=== PATIENT | male | born 1955 | race Caucasian/White ===

== ENCOUNTER 2021-11-30 15:26 | Inpatient (IN) ==
--- NOTE | 2021-11-30 15:37 | ED Triage Note ---
Date of Service November 30, 2021 History of Present Illness This patient was briefly evaluated while in triage. An abbreviated physical exam was performed. This patient is a 66-year-old Male with past medical history of hyperlipidemia who presents to the ED with family for mental health evaluation. Per daughter, he has been having worsening paranoid behavior, history of this for years, but has never been evaluated or diagnosed. Hx of drug use in the past, no longer using, but does drink alcohol heavily. No hx of alcohol withdrawal or seizures. Physical Exam CONSTITUTIONAL: No acute distress. Disheveled appearing, poor hygiene. RESPIRATORY: Clear to auscultation bilaterally. Equal expansion bilaterally. CARDIOVASCULAR: Regular rate and rhythm with no murmurs, rubs or gallops. Normal peripheral perfusion. No peripheral edema. NEUROLOGIC: Alert and oriented X 4 with normal affect. Normal speech. Normal gait observed. Initial orders for labs and / or imaging were placed and patient was placed in the waiting area until a bed is available. Please see further documentation for the full ED course.
--- NOTE | 2021-11-30 16:03 | CT Scan Report ---
CT head/brain wo con CLINICAL HISTORY: Paranoid behavior, confusion COMPARISON STUDY: No previous studies for comparison. CT DOSE: 1228.53 mGy.cm TECHNIQUE: Standard CT of the Brain was performed without IV contrast. A dose lowering technique was utilized adhering to the principles of ALARA. FINDINGS: Extraaxial space: There is no evidence for subdural hematoma. There are no extra-axial fluid collecti ons. Ventricles and cisterns: The ventricles are mildly dilated bilaterally. There is no evidence for midl ine shift or mass effect. Parenchyma: There is no subarachnoid or intraparenchymal hemorrhage. There is no evidence for an acut e infarct or cerebral edema. There is mild cerebral cortical atrophy and decreased attenuation in the periventricular white matter representing remote small vessel disease. There are no gross mass lesio ns. Osseous structures: There is no evidence for an acute fracture. The visualized paranasal sinuses are clear. The mastoid air cells are clear bilaterally. Soft tissues: There is no evidence for focal soft tissue swelling. IMPRESSION: 1. No acute intracerebral pathology. 2. Mild cerebral cortical atrophy and remote small vessel ACT 112: Negative or not required by law. Electronically signed by: Beltran Lawson M.D. 11/30/2021 4:02 PM
--- NOTE | 2021-11-30 17:00 | Emergency Department Note ---
Impression & Plan Alcohol abuse, Paranoia, Hyponatremia, Transaminitis ED Provider Note NAME: CYDNEY AYALA AGE: 66 SEX: M : 1955 ARRIVES VIA: Walk-In INFORMANT: Patient, ED PROVIDER(S): Saul Tucker MD Chief Complaint: Paranoia HPI: Patient presents due to concern for paranoia which family has noted and the patient states that he thinks that his family wants to harm him. The patient does have a known history of chronic alcohol use. Patient denies any active SI or HI. Does not currently take any medications and has no known medical problems. The patient last drank 2 days prior. Patient does smoke but denies any alcohol use. Patient's sleep and appetite has been okay. Patient denies any auditory visual hallucinations. ROS: See HPI for pertinent positives and negatives. A total of 10 systems were r eviewed and otherwise negative. Past medical history: See below Surgical history: See below Social history: See below Physical Exam: GENERAL: NAD, wearing a mask, non-toxic. EYE EXAM: Normal conjunctiva. PERRL, no anisocoria and EOM's grossly intact w/o pain. NECK: Supple, no nuchal rigidity, no adenopathy, non-tender. No signs of meningismus. FROM of the neck with good chin to chest and neck extension. No stridor. LUNGS: Clear to auscultation. Normal chest wall mechanics. HEART: NSR, no MRG. ABDOMEN: Abdomen soft, non-tender, normo-active bowel sounds, no masses, no rebound or guarding. BACK: No CVA TTP. SKIN: No rashes and no bruising. UPPER EXTREMITIES: Upper extremities are grossly normal. LOWER EXTREMITIES: Grossly normal, no edema. NEURO EXAM: A&O x3, cranial nerves II-XII grossly intact, normal speech, moves all 4 extremities. Psych: Paranoia, denies SI, HI, or AVH. Differential diagnoses: Mood disorder, infection, hypoglycemia, electrolyte abnormalities, cardiac sources, intracerebral event, toxicologic, trauma, neurologic, as well as other pathologies. Course: Patient was seen and evaluated the bedside. Full history physical exam was performed. Imaging Studies: See Below EKG interpreted by me Sinus tachycardia, rate of 103, borderline QRS, right bundle branch block pattern. MDM: Patient was seen due to concern for mental wellness. Blood work is obtained. Patient has normal white count H&H and platelet count. The patient's kidney function is unremarkable with mild hyponatremia and transaminitis. Transaminitis likely secondary to the patient's chronic alcohol use as this is the likely hyponatremia. Urine and serum awesome's as well as urine electr olytes were ordered. I did speak the on-call hospitalist given the patient's hyponatremia and was recommended for medical admission with psychiatric consultation. I did speak with [facility] and the patient was admitted to the medicine service by Dr. Pruitt. Patient's COVID alcohol UDS and tox cream negative Past Med/Surg History Medical History Alcohol use Surgical History No pertinent past surgical history Social History (Updated 11/30/21 @ 22:26 by Salu Tucker MD) Smoking Status: Current every day smoker Tobacco Type: Cigarettes Hx Alcohol Use: Yes Hx Substance Use: No Preferred Language: Georgian Feels Safe at Home: Yes Allergies Allergies Allergy/AdvReac Type Severity Reaction Status Date / Time No Known Allergies Allergy Verified 11/30/21 18:20 Home Meds Home Medications Medication Instructions Recorded Confirmed No Known Home Medications 11/30/21 11/30/21 Results & Data (ED) Vital Signs Vital Signs - 24 hr 11/30/21 15:27 11/30/21 18:03 Temperature 36.6 C Temperature Source Temporal Artery Scan Pulse Rate 107 H Pulse Rate [Bilateral Finger] 109 H Respiratory Rate 18 20 Respiratory Effort / Characteristics Non-Labored Spontaneous Respiratory Depth Normal Blood Pressure 165/99 H Blood Pressure [Right Arm] 183/114 H Blood Pressure Mean 121 Blood Pressure Mean [Right Arm] 137 Pulse Oximetry 94 99 Oxygen Delivery Method Room Air Sepsis Recent Fever Within 48 Hours No Sepsis New/Unexplained Change in Mental Status No Sepsis Action Taken by Nursing No Action Required Home Medications Current Medication List: was personally reviewed by me Laboratory Data Attestation: I reviewed the patient's lab results. Result diagrams: 11/30/21 16:55 11/30/21 16:55 Lab Results 11/30/21 11/30/21 11/30/21 Range/Units 16:55 16:55 16:55 WBC 7.52 (4.8-10.8) K/ul RBC 4.22 L (4.63-6.08) M/uL Hgb 14.4 (14.0-18.0) g/dl Hct 40.6 (40.1-51.0) % MCV 96.2 (80.0-100.0) fL MCH 34.1 H (25.0-34.0) pg MCHC 35.5 (32.0-36.0) g/dL RDW Std Deviation 41.0 (36.4-46.3) fL RDW Coeff of Arielle 11.9 (11.5-14.5) % Plt Count 228 (130-400) K/uL MPV 9.4 (9.4-12.4) fL Immature Gran % (Auto) 0.4 % Neut % (Auto) 66.4 % Lymph % (Auto) 21.0 % Ulster % (Auto) 11.2 % Eos % (Auto) 0.5 % Baso % (Auto) 0.5 % Neut # (Auto) 4.99 (1.4-6.5) K/uL Lymph # (Auto) 1.58 (1.2-3.4) K/uL Ulster # (Auto) 0.84 H (0.24-0.82) K/uL Eos # (Auto) 0.04 (0-0.50) K/uL Baso # (Auto) 0.04 (0-0.2) K/uL Immature Gran # (Auto) 0.03 H (0.00-0.02) K/uL Sodium 128 L (136-145) mmol/L Potassium 3.8 (3.5-5.1) mmol/L Chloride 91 L (98-107) mmol/L Carbon Dioxide 25 (21-32) mmol/L Anion Gap 12 H (3-11) BUN 8 (6-23) mg/dl Creatinine 1.09 (0.6-1.4) mg/dl Est Cr Clr Drug Dosing 58.5 ml/min Est GFR ( Amer) 81.0 ml/min Est GFR (Non-Af Amer) 69.9 ml/min BUN/Creatinine Ratio 7.3 L (10-20) Glucose 89 (70-99(Fasting)) mg/dl Osmolality (280-300) mOsm/kg Calcium 9.4 (8.5-10.1) mg/dl Total Bilirubin 1.5 H (0.2-1.0) mg/dl AST 84 H (13-39) U/L ALT 66 H (7-52) U/L Alkaline Phosphatase 76 (34-104) U/L Total Protein 8.2 (6.0-8.3) gm/dl Albumin 4.0 (3.4-5.0) gm/dl Globulin 4.2 H (2.5-4.0) gm/dl Albumin/Globulin Ratio 1.0 (0.9-2) TSH 1.511 (0.300-4.500) uIu/ml Urine Color Urine Appearance (Clear) Urine pH (4.5-7.5) Ur Specific [place] (1.000-1.030) Urine Protein (Negative) Urine Glucose (UA) (Negative) Urine Ketones (Negative) Urine Blood (Negative) Urine Nitrite (Negative) Urine Bilirubin (Negative) Urine Urobilinogen (Negative) Ur Leukocyte Esterase (Negative) Urine WBC (Auto) (0-5) /hpf Urine RBC (Auto) (0-4) /hpf U Hyaline Cast (Auto) (0-5) /lpf U Epithel Cells (Auto) (0-5) /lpf Urine Bacteria (Auto) (Negative) Urine Osmolality (500-800) mOsm/kg Urine Sodium mmol/L Urine Potassium mmol/L Urine Chloride mmol/L Salicylates (3.0-30) mg/dl Urine Opiates Screen (Neg) Ur Methadone, Qual (Neg) Acetaminophen (10-30) ug/ml Urine Barbiturates (Neg) Ur Phencyclidine (PCP) (Neg) U Amphetamin/Meth Scrn (Neg) MDMA (Ecstasy) Screen (Neg) U Benzodiazepines Scrn (Neg) Ur Cocaine Metabolite (Neg) U Marijuana (THC) Screen (Neg) Ethyl Alcohol mg/dL (<10.0) mg/dl SARS-CoV-2, RNA, NAAT (NEGATIVE) 11/30/21 11/30/21 11/30/21 Range/Units 16:55 16:55 16:55 WBC (4.8-10.8) K/ul RBC (4.63-6.08) M/uL Hgb (14.0-18.0) g/dl Hct (40.1-51.0) % MCV (80.0-100.0) fL MCH (25.0-34.0) pg MCHC (32.0-36.0) g/dL RDW Std Deviation (36.4-46.3) fL RDW Coeff of Arielle (11.5-14.5) % Plt Count (130-400) K/uL MPV (9.4-12.4) fL Immature Gran % (Auto) % Neut % (Auto) % Lymph % (Auto) % Ulster % (Auto) % Eos % (Auto) % Baso % (Auto) % Neut # (Auto) (1.4-6.5) K/uL Lymph # (Auto) (1.2-3.4) K/uL [place] # (Auto) (0.24-0.82) K/uL Eos # (Auto) (0-0.50) K/uL Baso # (Auto) (0-0.2) K/uL Immature Gran # (Auto) (0.00-0.02) K/uL Sodium (136-145) mmol/L Potassium (3.5-5.1) mmol/L Chloride (98-107) mmol/L Carbon Dioxide (21-32) mmol/L Anion Gap (3-11) BUN (6-23) mg/dl Creatinine (0.6-1.4) mg/dl Est Cr Clr Drug Dosing ml/min Est GFR ( Amer) ml/min Est GFR (Non-Af Amer) ml/min BUN/Creatinine Ratio (10-20) Glucose (70-99(Fasting)) mg/dl Osmolality (280-300) mOsm/kg Calcium (8.5-10.1) mg/dl Total Bilirubin (0.2-1.0) mg/dl AST (13-39) U/L ALT (7-52) U/L Alkaline Phosphatase (34-104) U/L Total Protein (6.0-8.3) gm/dl Albumin (3.4-5.0) gm/dl Globulin (2.5-4.0) gm/dl Albumin/Globulin Ratio (0.9-2) TSH (0.300-4.500) uIu/ml Urine Color Urine Appearance (Clear) Urine pH (4.5-7.5) Ur Specific [place] (1.000-1.030) Urine Protein (Negative) Urine Glucose (UA) (Negative) Urine Ketones (Negative) Urine Blood (Negative) Urine Nitrite (Negative) Urine Bilirubin (Negative) Urine Urobilinogen (Negative) Ur Leukocyte Esterase (Negative) Urine WBC (Auto) (0-5) /hpf Urine RBC (Auto) (0-4) /hpf U Hyaline Cast (Auto) (0-5) /lpf U Epithel Cells (Auto) (0-5) /lpf Urine Bacteria (Auto) (Negative) Urine Osmolality (500-800) mOsm/kg Urine Sodium mmol/L Urine Potassium mmol/L Urine Chloride mmol/L Salicylates < 3.0 L (3.0-30) mg/dl Urine Opiates Screen (Neg) Ur Methadone, Qual (Neg) Acetaminophen < 3 L (10-30) ug/ml Urine Barbiturates (Neg) Ur Phencyclidine (PCP) (Neg) U Amphetamin/Meth Scrn (Neg) MDMA (Ecstasy) Screen (Neg) U Benzodiazepines Scrn (Neg) Ur Cocaine Metabolite (Neg) U Marijuana (THC) Screen (Neg) Ethyl Alcohol mg/dL < 10.0 (<10.0) mg/dl SARS-CoV-2, RNA, NAAT NEGATIVE (NEGATIVE) 11/30/21 11/30/21 11/30/21 Range/Units 16:55 16:55 16:55 WBC (4.8-10.8) K/ul RBC (4.63-6.08) M/uL Hgb (14.0-18.0) g/dl Hct (40.1-51.0) % MCV (80.0-100.0) fL MCH (25.0-34.0) pg MCHC (32.0-36.0) g/dL RDW Std Deviation (36.4-46.3) fL RDW Coeff of Arielle (11.5-14.5) % Plt Count (130-400) K/uL MPV (9.4-12.4) fL Immature Gran % (Auto) % Neut % (Auto) % Lymph % (Auto) % Ulster % (Auto) % Eos % (Auto) % Baso % (Auto) % Neut # (Auto) (1.4-6.5) K/uL Lymph # (Auto) (1.2-3.4) K/uL Ulster # (Auto) (0.24-0.82) K/uL Eos # (Auto) (0-0.50) K/uL Baso # (Auto) (0-0.2) K/uL Immature Gran # (Auto) (0.00-0.02) K/uL Sodium (136-145) mmol/L Potassium (3.5-5.1) mmol/L Chloride (98-107) mmol/L Carbon Dioxide (21-32) mmol/L Anion Gap (3-11) BUN (6-23) mg/dl Creatinine (0.6-1.4) mg/dl Est Cr Clr Drug Dosing ml/min Est GFR ( Amer) ml/min Est GFR (Non-Af Amer) ml/min BUN/Creatinine Ratio (10-20) Glucose (70-99(Fasting)) mg/dl Osmolality 273 L (280-300) mOsm/kg Calcium (8.5-10.1) mg/dl Total Bilirubin (0.2-1.0) mg/dl AST (13-39) U/L ALT (7-52) U/L Alkaline Phosphatase (34-104) U/L Total Protein (6.0-8.3) gm/dl Albumin (3.4-5.0) gm/dl Globulin (2.5-4.0) gm/dl Albumin/Globulin Ratio (0.9-2) TSH (0.300-4.500) uIu/ml Urine Color Yellow Urine Appearance Clear (Clear) Urine pH 5.5 (4.5-7.5) Ur Specific [place] 1.007 (1.000-1.030) Urine Protein 1+ H (Negative) Urine Glucose (UA) Negative (Negative) Urine Ketones Negative (Negative) Urine Blood Negative (Negative) Urine Nitrite Negative (Negative) Urine Bilirubin Negative (Negative) Urine Urobilinogen Negative (Negative) Ur Leukocyte Esterase Negative (Negative) Urine WBC (Auto) 1-5 (0-5) /hpf Urine RBC (Auto) 0-4 (0-4) /hpf U Hyaline Cast (Auto) 1-5 (0-5) /lpf U Epithel Cells (Auto) 10-20 H (0-5) /lpf Urine Bacteria (Auto) Negative (Negative) Urine Osmolality (500-800) mOsm/kg Urine Sodium mmol/L Urine Potassium mmol/L Urine Chloride mmol/L Salicylates (3.0-30) mg/dl Urine Opiates Screen Neg (Neg) Ur Methadone, Qual Neg (Neg) Acetaminophen (10-30) ug/ml Urine Barbiturates Neg (Neg) Ur Phencyclidine (PCP) Neg (Neg) U Amphetamin/Meth Scrn Neg (Neg) MDMA (Ecstasy) Screen Neg (Neg) U Benzodiazepines Scrn Neg (Neg) Ur Cocaine Metabolite Neg (Neg) U Marijuana (THC) Screen Neg (Neg) Ethyl Alcohol mg/dL (<10.0) mg/dl SARS-CoV-2, RNA, NAAT (NEGATIVE) 11/30/21 11/30/21 Range/Units 16:55 16:55 WBC (4.8-10.8) K/ul RBC (4.63-6.08) M/uL Hgb (14.0-18.0) g/dl Hct (40.1-51.0) % MCV (80.0-100.0) fL MCH (25.0-34.0) pg MCHC (32.0-36.0) g/dL RDW Std Deviation (36.4-46.3) fL RDW Coeff of Arielle (11.5-14.5) % Plt Count (130-400) K/uL MPV (9.4-12.4) fL Immature Gran % (Auto) % Neut % (Auto) % Lymph % (Auto) % Ulster % (Auto) % Eos % (Auto) % Baso % (Auto) % Neut # (Auto) (1.4-6.5) K/uL Lymph # (Auto) (1.2-3.4) K/uL Ulster # (Auto) (0.24-0.82) K/uL Eos # (Auto) (0-0.50) K/uL Baso # (Auto) (0-0.2) K/uL Immature Gran # (Auto) (0.00-0.02) K/uL Sodium (136-145) mmol/L Potassium (3.5-5.1) mmol/L Chloride (98-107) mmol/L Carbon Dioxide (21-32) mmol/L Anion Gap (3-11) BUN (6-23) mg/dl Creatinine (0.6-1.4) mg/dl Est Cr Clr Drug Dosing ml/min Est GFR ( Amer) ml/min Est GFR (Non-Af Amer) ml/min BUN/Creatinine Ratio (10-20) Glucose (70-99(Fasting)) mg/dl Osmolality (280-300) mOsm/kg Calcium (8.5-10.1) mg/dl Total Bilirubin (0.2-1.0) mg/dl AST (13-39) U/L ALT (7-52) U/L Alkaline Phosphatase (34-104) U/L Total Protein (6.0-8.3) gm/dl Albumin (3.4-5.0) gm/dl Globulin (2.5-4.0) gm/dl Albumin/Globulin Ratio (0.9-2) TSH (0.300-4.500) uIu/ml Urine Color Urine Appearance (Clear) Urine pH (4.5-7.5) Ur Specific [place] (1.000-1.030) Urine Protein (Negative) Urine Glucose (UA) (Negative) Urine Ketones (Negative) Urine Blood (Negative) Urine Nitrite (Negative) Urine Bilirubin (Negative) Urine Urobilinogen (Negative) Ur Leukocyte Esterase (Negative) Urine WBC (Auto) (0-5) /hpf Urine RBC (Auto) (0-4) /hpf U Hyaline Cast (Auto) (0-5) /lpf U Epithel Cells (Auto) (0-5) /lpf Urine Bacteria (Auto) (Negative) Urine Osmolality 153 L (500-800) mOsm/kg Urine Sodium < 10 mmol/L Urine Potassium 27.5 mmol/L Urine Chloride < 15 mmol/L Salicylates (3.0-30) mg/dl Urine Opiates Screen (Neg) Ur Methadone, Qual (Neg) Acetaminophen (10-30) ug/ml Urine Barbiturates (Neg) Ur Phencyclidine (PCP) (Neg) U Amphetamin/Meth Scrn (Neg) MDMA (Ecstasy) Screen (Neg) U Benzodiazepines Scrn (Neg) Ur Cocaine Metabolite (Neg) U Marijuana (THC) Screen (Neg) Ethyl Alcohol mg/dL (<10.0) mg/dl SARS-CoV-2, RNA, NAAT (NEGATIVE) Imaging Data Radiologist's Impression: Head CT 11/30/21 15:37 CT head/brain wo con CLINICAL HISTORY: Paranoid behavior, confusion COMPARISON STUDY: No previous studies for comparison. CT DOSE: 1228.53 mGy.cm TECHNIQUE: Standard CT of the Brain was performed without IV contrast. A dose lowering technique was utilized adhering to the principles of ALARA. FINDINGS: Extraaxial space: There is no evidence for subdural hematoma. There are no extra-axial fluid collections. Ventricles and cisterns: The ventricles are mildly dilated bilaterally. There is no evidence for midline shift or mass effect. Parenchyma: There is no subarachnoid or intraparenchymal hemorrhage. There is no evidence for an acute infarct or cerebral edema. There is mild cerebral cortical atrophy and decreased attenuation in the periventricular white matter representing remote small vessel disease. There are no gross mass lesions. Osseous structures: There is no evidence for an acute fracture. The visualized paranasal sinuses are clear. The mastoid air cells are clear bilaterally. Soft tissues: There is no evidence for focal soft tissue swelling. IMPRESSION: 1. No acute intracerebral pathology. 2. Mild cerebral cortical atrophy and remote small vessel ACT 112: Negative or not required by law. Electronically signed by: Beltran Lawson M.D. 11/30/2021 4:02 PM Discharge Plan Visit Data Chief Complaint: Mental Health Evaluation Stated Complaint: MENTAL HEALTH EVAL ED Provider: Saul Tucker Discharge Problem: Alcohol abuse, Paranoia, Hyponatremia, Transaminitis Forms Stand Alone Forms: [facility], Suicide Prevention Resources Prescriptions Prescriptions: No Action No Known Home Medications Referrals Referrals: PCP,NO [Primary Care Provider] -
[2021-11-30 17:14] LABS: Basophils # (auto) 0.04 K/uL (0-0.2); Basophils % (auto) 0.5 %; Eosinophils # (auto) 0.04 K/uL (0-0.50); Eosinophils % (auto) 0.5 %; Hematocrit (blood only) 40.6 % (40.1-51.0); Hemoglobin 14.4 g/dl (14.0-18.0); Immature Granulocytes # (auto) 0.03 K/uL (0.00-0.02); Immature Granulocytes % (auto) 0.4 %; Lymphocytes # (auto) 1.58 K/uL (1.2-3.4); Mean Corpuscular Hemoglobin 34.1 pg (25.0-34.0); Mean Corpuscular Hgb Conc 35.5 g/dL (32.0-36.0); Mean Corpuscular Volume 96.2 fL (80.0-100.0); Mean Platelet Volume 9.4 fL (9.4-12.4); Monocytes # (auto) 0.84 K/uL (0.24-0.82); Monocytes % (auto) 11.2 %; Neutrophils # (auto) 4.99 K/uL (1.4-6.5); Neutrophils % (auto) 66.4 %; Platelet Count 228 K/uL (130-400); RDW Coefficient of Variation 11.9 % (11.5-14.5); Red Blood Count 4.22 M/uL (4.63-6.08); White Blood Count 7.52 K/ul (4.8-10.8)
[2021-11-30 17:18] LABS: Appearance Urine Clear (Clear); Bacteria Urine Automated Negative (Negative); Bilirubin Urine Negative (Negative); Blood Urine Negative (Negative); Color Urine Yellow; Glucose Urine UA Negative (Negative); Ketones Urine Negative (Negative); Leukocyte Esterase Urine Negative (Negative); Nitrite Urine Negative (Negative); Protein Urine 1+ (Negative); RBC Urine Automated 0-4 /hpf (0-4); Specific Gravity Urine 1.007 (1.000-1.030); Urobilinogen Urine Negative (Negative); pH Urine 5.5 (4.5-7.5)
[2021-11-30 17:34] LABS: BUN Creatinine Ratio 7.3 (10-20); Bilirubin,Total 1.5 mg/dl (0.2-1.0); Calcium 9.4 mg/dl (8.5-10.1); Creatinine Clr Calc Pharmacy 58.5 ml/min; Est GFR (Non-African American) 69.9 ml/min; Globulin 4.2 gm/dl (2.5-4.0); Potassium 3.8 mmol/L (3.5-5.1); Total Protein 8.2 gm/dl (6.0-8.3)
[2021-11-30 17:35] LABS: Acetaminophen < 3 ug/ml (10-30); Salicylate < 3.0 mg/dl (3.0-30)
[2021-11-30 17:40] LABS: Amphetamines+Metham, Urine Neg (Neg); Barbiturates, Urine Neg (Neg); Benzodiazepine, Urine Neg (Neg); Cocaine, Urine Neg (Neg); MDMA (Ecstacy), Urine Neg (Neg); Methadone, Urine Neg (Neg); Opiate, Urine Neg (Neg); Phencyclidine, Urine Neg (Neg)
--- NOTE | 2021-11-30 18:36 | History & Physical Report ---
Date of Service November 30, 2021 Assessment & Plan (1) Hyponatremia: (2) Alcohol abuse: (3) Transaminitis: (4) Paranoia: (5) Hypertension: Plan 66 year old male with alcohol abuse who was brought to the ED by family for paranoia Hyponatremia- Na 128. suspected beer potomania. Urinary studies and serum osm noted. Continue NSS. Recheck in am. should improve with increase in solute intake. Alcohol abuse- alcohol level negative. family reports heavy alcohol abuse but patient denies. Will start on AWSS protocol with gabapentin taper, ativan prn, banana bag, folate, thiamine. Transaminitis- likely from alcohol abuse. Recheck in am. If worsening significantly, consider hepatitis panel and RUQ US. Hypertension- ?situational vs underlying essential HTN. Will start on norvasc with iv HLZ prn. Titrate as needed. Paranoia/underlying mental health issues- Denies any SI/HI. Denies any hallucinations. CT head unremarkable. UDS negative, salicylate and alcohol level negative. Check B12. Consult psych. Tobacco abuse- nicoderm patch DVT ppx- sc lovenox Dispo- Medsurg tele History of Present Illness Chief Complaint: Paranoia Primary Care Provider: NO PCP 66 year old male with history of alcohol abuse, tobacco abuse who was brought to the ED by family for paranoia. Per triage note- 'family reports- paranoid, etoh use, longstanding history of mental health, feels like family wants to hurt him, refuse SI/HI'. During my encounter, he was AAOx2, lying in bed. He is tangential and speech is at times difficult to understand. States he lives by himself. Denies any hallucinations or hearing voices. Denies any suicidal or homicidal ideation. Doesn't take any medications. States last saw a doctor a year ago. States he drinks 6 pack beer twice a week but does not drink liquor- states last drank beer two days ago. Smokes 15 cigarettes a day. Doesn't do drugs. Asking if he has to stay in the hospital and when he will be released. States he is nervous and asking for some meds. Allergies Allergy/AdvReac Type Severity Reaction Status Date / Time No Known Allergies Allergy Verified 11/30/21 18:20 Home Medications Medication Instructions Recorded Confirmed Type No Known Home Medications 11/30/21 11/30/21 History Past Med/Surg History Social History Smoking Status: Current every day smoker Tobacco Type: Cigarettes Preferred Language: Brazilian Feels Safe at Home: Yes Review of Systems Review of Systems: All systems reviewed & are unremarkable except as noted in Subjective Physical Exam Physical Exam: General: Lying comfortably in bed, not in distress, on room air HEENT: EOMI, RANCHO, MMM, no nystagmus Chest: Clear breath sounds bilaterally, no wheezes or crackles CVS: Regular rate and rhythm, normal heart sounds, no murmur Abdomen: Soft, non tender, not distended, normal bowel sounds Neuro: Awake, alert, orientedx2, conversing well, non focal Extremities: No edema. No tremors appreciated. Results & Data Results & Data ([facility]) Vital Signs (Past 12 Hours) Vital Signs Temp Pulse Pulse Resp BP BP Pulse Ox 11/30/21 18:03 109 H 20 183/114 H 99 11/30/21 15:27 36.6 C 107 H 18 165/99 H 94 O2 Del Method 11/30/21 18:03 Room Air 11/30/21 15:27 Laboratory Results Short CBC 11/30/21 Range/Units 16:55 WBC 7.52 (4.8-10.8) K/ul Hgb 14.4 (14.0-18.0) g/dl Hct 40.6 (40.1-51.0) % Plt Count 228 (130-400) K/uL BMP 11/30/21 16:55 Sodium 128 L Potassium 3.8 Chloride 91 L Carbon Dioxide 25 BUN 8 Creatinine 1.09 Glucose 89 Calcium 9.4 Liver Function 11/30/21 Range/Units 16:55 Total Bilirubin 1.5 H (0.2-1.0) mg/dl AST 84 H (13-39) U/L ALT 66 H (7-52) U/L Alkaline Phosphatase 76 (34-104) U/L Albumin 4.0 (3.4-5.0) gm/dl Urine 11/30/21 Range/Units 16:55 Urine Color Yellow Urine Appearance Clear (Clear) Urine pH 5.5 (4.5-7.5) Ur Specific [place] 1.007 (1.000-1.030) Urine Protein 1+ H (Negative) Urine Glucose (UA) Negative (Negative) Diagnostic Findings Head CT 11/30/21 15:37 CT head/brain wo con CLINICAL HISTORY: Paranoid behavior, confusion COMPARISON STUDY: No previous studies for comparison. CT DOSE: 1228.53 mGy.cm TECHNIQUE: Standard CT of the Brain was performed without IV contrast. A dose lowering technique was utilized adhering to the principles of ALARA. FINDINGS: Extraaxial space: There is no evidence for subdural hematoma. There are no extra-axial fluid collections. Ventricles and cisterns: The ventricles are mildly dilated bilaterally. There is no evidence for midline shift or mass effect. Parenchyma: There is no subarachnoid or intraparenchymal hemorrhage. There is no evidence for an acute infarct or cerebral edema. There is mild cerebral cortical atrophy and decreased attenuation in the periventricular white matter representing remote small vessel disease. There are no gross mass lesions. Osseous structures: There is no evidence for an acute fracture. The visualized paranasal sinuses are clear. The mastoid air cells are clear bilaterally. Soft tissues: There is no evidence for focal soft tissue swelling. IMPRESSION: 1. No acute intracerebral pathology. 2. Mild cerebral cortical atrophy and remote small vessel ACT 112: Negative or not required by law. Electronically signed by: Beltran Lawson M.D. 11/30/2021 4:02 PM
[2021-11-30 18:42] LABS: Urine Chloride < 15 mmol/L; Urine Potassium 27.5 mmol/L; Urine Sodium < 10 mmol/L
[2021-12-01] MEDS ORDERED: LORazepam 1 MG in SYRINGE 0.5 ML IV PRN (00:24)
[2021-12-01] MEDS ORDERED: hydrALAZINE HCL 20 MG/ML VIAL IV PRN (00:24)
[2021-12-01] MEDS ORDERED: LORazepam 3 MG in SYRINGE 1.5 ML IV PRN (00:24)
[2021-12-01] MEDS ORDERED: GABAPENTIN 600 MG TAB PO ONE (00:24)
[2021-12-01] MEDS ORDERED: Ativan IV Alcohol Withdrawal--Active Protocol IV PRN (00:24)
[2021-12-01] MEDS ORDERED: LORazepam 2 MG in SYRINGE 1 ML IV PRN (00:24)
[2021-12-01] MEDS ORDERED: GABAPENTIN 1200MG ALCOHOL WITHDRAWAL LOAD PO STA (00:24)
[2021-12-01] MEDS ORDERED: MULTI-VITAMIN INFUSION 10 ML, THIAMINE HCL 100 MG, FOLIC ACID 1 MG in SODIUM CHLORIDE 0... IV ONE (00:45)
[2021-12-01] MEDS: amLODIPine BESYLATE 5 MG TAB PO SCH ×2 (01:24→10:09)
[2021-12-01] MEDS: FOLIC ACID 1 MG TAB PO SCH ×2 (01:25→10:09)
[2021-12-01] MEDS ORDERED: SODIUM CHLORIDE 0.9% 1000ML 1,000 ML IV SCH (03:00)
[2021-12-01] MEDS: GABAPENTIN 600 MG TAB PO SCH ×3 (06:26→20:51)
[2021-12-01 08:38] LABS: Hematocrit (blood only) 38.6 % (40.1-51.0); Hemoglobin 13.2 g/dl (14.0-18.0); Mean Corpuscular Hemoglobin 33.5 pg (25.0-34.0); Mean Corpuscular Hgb Conc 34.2 g/dL (32.0-36.0); Mean Platelet Volume 9.7 fL (9.4-12.4); Platelet Count 193 K/uL (130-400); RDW Coefficient of Variation 11.9 % (11.5-14.5); RDW Standard Deviation 42.9 fL (36.4-46.3); Red Blood Count 3.94 M/uL (4.63-6.08); White Blood Count 4.52 K/ul (4.8-10.8)
[2021-12-01] MEDS ORDERED: THIAMINE HCL 100 MG in SYRINGE 9 ML IV SCH (09:00)
[2021-12-01 09:36] LABS: Albumin Level 3.4 gm/dl (3.4-5.0); Bilirubin Direct 0.3 mg/dl (0-0.2); Bilirubin,Total 0.9 mg/dl (0.2-1.0); Calcium 8.3 mg/dl (8.5-10.1); Creatinine Clr Calc Pharmacy 78.4 ml/min; Est GFR (African American) 107.1 ml/min; Est GFR (Non-African American) 92.4 ml/min; Magnesium 1.8 mg/dl (1.7-2.4); Phosphorus 2.9 mg/dl (2.5-4.9); Potassium 3.5 mmol/L (3.5-5.1); Total Protein 6.8 gm/dl (6.0-8.3)
[2021-12-01] MEDS: NICOTINE 14 MG/24 HR PATCH TD SCH (10:08)
[2021-12-01] MEDS: ENOXAPARIN INJ 40 MG/0.4 ML SYR SQ SCH (10:10)
--- NOTE | 2021-12-01 10:48 | Hospitalist Progress Note ---
Date of Service December 01, 2021 Assessment & Plan (1) Hyponatremia: Plan: Na 128, now 135 this am, hypotonic hyponatremia likely related to tea and toast diet in setting of excessive alcohol use. Cont to monitor BMP daily, but cleared from a medical standpoint for disharge home once cleared by psychiatry. (2) Alcohol abuse: Plan: No evidence of withdrawal at this time. Patient states last drink was this morning. Cont AWSS monitoring and gabapentin protocol. Daily thiamine and folate. (3) Transaminitis: Plan: Mildly elevated related to alcohol use. Improved. (4) Paranoia: (5) Hypertension: Plan: mildly elevated which may be situational. Cont to monitor. Not on antihypertensives at home. (6) Tobacco abuse: Plan: Nicoderm patch. Smoking cessation advised. Plan Medically cleared for discharge home but awaiting clearance from psychiatry as patient is on 302. Whitney Sampson DO [facility] Hospitalist Admission and Anticipated Discharge Date Admission Date: November 30, 2021 Subjective 66 yo alcoholic man with a h/o alcohol and drug abuse presents to the hospital on a 302 by his daughter for hallucinations that someone was trying to kill him. He mentions that someone was trying to kill him that used to be friends, can't really ascertain the reason. States lives alone and has a house. Has access to guns but has no guns in the house. Denies any current symptoms No chest pain, SOB Review of Systems Review of Systems: All systems were reviewed and negative except as indicated on subjective above. Physical Exam Physical Exam: CONSTITUTIONAL: WNWD, vitals as above, generally disheveled appearance, NAD, mumbling to himself EYES: normal conjunctivae, no scleral icterus ENT: external ear and nose normal, MMM NECK: trachea midline RESPIRATORY: clear to auscultation bilaterally, no crackles, rales or wheezes, normal respiratory effort CARDIOVASCULAR: regular rate and rhythm, S1 and 2 heard without murmurs, gallops or rubs, no JVD, no peripheral edema CHEST: inspection of chest was normal GASTROINTESTINAL: soft, nontender, ND, no guarding. MUSCULOSKELETAL: strength 5/5 throughout, head is normocephalic and atraumatic, SKIN: warm and dry, no rashes NEUROLOGIC: CN 2-12 grossly intact, no sensory deficit, normal cognition, normal speech, no tremor PSYCHIATRIC: alert cooperative and oriented to person, place and time. Euthymic mood, makes good eye contact, language grossly intact, recent and remote memory grossly intact. Results & Data Results & Data ([facility]) Vital Signs (Past 12 Hours) Vital Signs Temp Pulse Pulse Pulse Resp BP Pulse Ox 12/01/21 08:04 36.9 C 92 H 20 146/84 H 93 12/01/21 01:25 112 H 11/30/21 23:48 104 H 12/01/21 03:30 36.6 C 90 16 137/64 96 11/30/21 23:52 36.7 C 107 H 18 153/85 H 95 11/30/21 23:15 36.8 C 99 H 18 119/83 97 O2 Del Method 12/01/21 08:04 Room Air 12/01/21 01:25 11/30/21 23:48 12/01/21 03:30 Room Air 11/30/21 23:52 Room Air 11/30/21 23:15 Room Air Laboratory Results Short CBC 11/30/21 12/01/21 Range/Units 16:55 08:08 WBC 7.52 4.52 L (4.8-10.8) K/ul Hgb 14.4 13.2 L (14.0-18.0) g/dl Hct 40.6 38.6 L (40.1-51.0) % Plt Count 228 193 (130-400) K/uL BMP 11/30/21 12/01/21 16:55 08:08 Sodium 128 L 135 L Potassium 3.8 3.5 Chloride 91 L 103 Carbon Dioxide 25 25 BUN 8 12 Creatinine 1.09 0.80 Glucose 89 93 Calcium 9.4 8.3 L Liver Function 11/30/21 12/01/21 Range/Units 16:55 08:08 Total Bilirubin 1.5 H 0.9 D (0.2-1.0) mg/dl Direct Bilirubin 0.3 H (0-0.2) mg/dl AST 84 H 60 H (13-39) U/L ALT 66 H 49 (7-52) U/L Alkaline Phosphatase 76 64 (34-104) U/L Albumin 4.0 3.4 (3.4-5.0) gm/dl Urine 11/30/21 Range/Units 16:55 Urine Color Yellow Urine Appearance Clear (Clear) Urine pH 5.5 (4.5-7.5) Ur Specific [place] 1.007 (1.000-1.030) Urine Protein 1+ H (Negative) Urine Glucose (UA) Negative (Negative) Medications Administered Current Inpatient Medications Amlodipine Besylate (Amlodipine Besylate 5 Mg Tab) 5 mg PO DAILY [facility] Stop: 12/31/21 00:23 Last Admin: 12/01/21 10:09 Dose: 5 mg Enoxaparin Sodium (Enoxaparin Inj 40 Mg/0.4 Ml Syr) 40 mg SQ QAM [facility] Stop: 12/31/21 08:59 Last Admin: 12/01/21 10:10 Dose: Not Given Folic Acid (Folic Acid 1 Mg Tab) 1 mg PO QAM [facility] Stop: 12/31/21 00:23 Last Admin: 12/01/21 10:09 Dose: 1 mg Gabapentin (Gabapentin 600 Mg Tab) 600 mg PO Q6H [facility] Stop: 12/01/21 12:01 Last Admin: 12/01/21 06:26 Dose: 600 mg Gabapentin (Gabapentin 600 Mg Tab) 600 mg PO Q8H [facility] Stop: 12/02/21 12:01 Gabapentin (Gabapentin 600 Mg Tab) 600 mg PO Q12H [facility] Stop: 12/03/21 11:01 Gabapentin (Gabapentin 600 Mg Tab) 600 mg PO Q24H [facility] Stop: 12/04/21 11:01 Lorazepam 1 mg/ Syringe 1 mls @ 2 mls/min IV UD PRN; Protocol PRN Reason: EtOH Withdrawal AWSS Score 6,7 Stop: 12/31/21 00:23 Miscellaneous (Remove Nicoderm Patch) 1 each N/A DAILY@[id number] [facility] Stop: 01/01/22 08:58 Nicotine (Nicotine 14 Mg/24 Hr Patch) 14 mg TD QAM [facility] Stop: 12/31/21 08:59 Last Admin: 12/01/21 10:08 Dose: 14 mg Thiamine HCl (Thiamine Hcl 100 Mg Tab) 100 mg PO QAM [facility] Stop: 01/01/22 08:59
--- NOTE | 2021-12-01 13:43 | Psychiatric Consultation ---
Date of Consultation December 01, 2021 Impression / Recommendations Impression 66 yo male with no formal psych hx but hx of signifcant ETOH abuse/dependence, admit for AMS/hyponatremia and worsening paranoia which appears to be longstanding (several years) yet worse in past 2 weeks. Likely suggests underlying cognitive disorder (alcohol induced dementia vs. microvascular, etc.). He is refusing rehab and is focussed on returning home. There is no evidence of eduin on exam or hx of schizophrenia. His condition does not fall under mental health procedures act since most likely dementia and/or substance induced but I share family concerns about his ability to care for self at home. Dr. Sampson to involve CM in discharge planning. He has no acute intent to harm anyone and family confirms no known weapons. The statement he made in ED was while hyponatremic and is confusing name of his transfer table operator helper with his neighbor who who was who the threat seems to be directed at. (1) Altered mental status: (2) Hyponatremia: (3) Alcohol abuse: Plan Dr. Sampson states CM with f/u with [facility] referral. would recommend outpatient f/u for dementia (b12, folate, etc) AWSS protocol, cannot be committed for substance abuse/major cognitive disorder. patient is not interested in medications for his paranoia at this time and is quite proud of his "mountain man" persona and would hope to avoid in the setting of resolving hyponatremia family confirms he doesn't have car/drive Risk Factors Assessment Do You Have Access To A Gun?: No (niece confirmed were removed. ) Psych History Identifying Data 66 yo male from [facility], admit medically for hyponatremia after being brought to ED by family for lack of self care and paranoia. Chief Complaint "I'm not a drug addict, I don't like this needle in my arm". History of Present Illness much of history obtained/confirmed with 302 petitioner (just statement, no active warrant). Patient has no known psychiatric history, five years ago he became more paranoid (non-bizarre), thinking certain family members were paying people to "mess with" him or even trying to harm/kill him. He has not history of violence but guns were removed from his home years ago as ex- filed a PFA. He recently filed a PFA against his sister based on these beliefs. His paranoia increased in the past 2 weeks, following family attempting to clean his place with a cleaning service and then involved [facility]. Current medical presentation is felt to be related to combination of alcohol abuse (he is likely underreporting at two 6-packs a week, family says more but unsure how much) and poor diet (tea and toast) and Dr. Sampson feels likely more chronic than acute. He has made statements of "taking out Miarmontes", seems to be confusing his swimming pool cleaner's name with his former neighbor Sumeet as repeatedly tells me Kulwinder is and he saw the ambulance so need for a gun. Spoke with Dr. 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 There was some question if he may have been responding to internal stimuli prior to admission. Dr. Sampson has access to his outpatient records; he has not been seen for several years and no prior indication of psych issues/meds. Past Psychiatric History Previous Psych History: no formal Previous Psych Admissions: none Do You Have Access To A Gun?: No (niece confirmed were removed. ) History of Previous Suicide Attempt: No Past Medication Trials: n/a Allergies Allergy/AdvReac Type Severity Reaction Status Date / Time No Known Allergies Allergy Verified 11/30/21 18:20 Home Medications Medication Instructions Recorded Confirmed Type No Known Home Medications 11/30/21 11/30/21 History Personal History Beliefs That Will Affect Care: None Patient History Medical History Alcohol use Surgical History No pertinent past surgical history Social History Smoking Status: Current every day smoker Tobacco Type: Cigarettes Do You Dip or Chew Tobacco: No; Hx Alcohol Use: Yes Alcohol type: beer Hx Substance Use: No Preferred Language: Greenlandic Communication Ability: Effective Evp Required: No Beliefs That Will Affect Care: None Current Living Situation: Alone Feels Safe at Home: Yes Safety Concerns: Afraid for Self Assistive Devices: None Physical Exam Psychiatric: Orientation: alert, oriented to person, oriented to place and oriented to time (general, not date) Apperance: appropriately groomed Eye Contact: good eye contact Motor Behavior: no abnormal motor movements Speech: normal rate/rhythm/volume of speech Affect: euthymic affect Mood: + anxious mood (wants to walk the halls.) Thought Process: + circumstantial thought process Thought Content: + paranoid Suicidal Thoughts: denies suicidal thoughts Homicidal Thoughts: denies homicidal thoughts Hallucinations: no auditory hallucinations and no visual hallucinations Cognition: language grossly intact; + attention not intact (short, distractible) Insight: + poor insight Judgement: + poor judgement Vital Signs (Past 24 Hours): Last Vital Signs Temp 36.9 C 12/01/21 08:04 Pulse 92 H 12/01/21 08:04 Resp 20 12/01/21 08:04 BP 146/84 H 12/01/21 08:04 Pulse Ox 93 12/01/21 08:04 O2 Del Method 12/01/21 08:04 Review of Systems All systems reviewed & are unremarkable except as noted in HPI & below Results & Data ([facility]) Laboratory Results 12/01/21 12/01/21 12/01/21 Range/Units 08:08 08:08 08:08 WBC 4.52 L (4.8-10.8) K/ul RBC 3.94 L (4.63-6.08) M/uL Hgb 13.2 L (14.0-18.0) g/dl Hct 38.6 L (40.1-51.0) % MCV 98.0 (80.0-100.0) fL MCH 33.5 (25.0-34.0) pg MCHC 34.2 (32.0-36.0) g/dL RDW Std Deviation 42.9 (36.4-46.3) fL RDW Coeff of Arielle 11.9 (11.5-14.5) % Plt Count 193 (130-400) K/uL MPV 9.7 (9.4-12.4) fL Immature Gran % (Auto) % Neut % (Auto) % Lymph % (Auto) % [place] % (Auto) % Eos % (Auto) % Baso % (Auto) % Neut # (Auto) (1.4-6.5) K/uL Lymph # (Auto) (1.2-3.4) K/uL [place] # (Auto) (0.24-0.82) K/uL Eos # (Auto) (0-0.50) K/uL Baso # (Auto) (0-0.2) K/uL Immature Gran # (Auto) (0.00-0.02) K/uL Sodium 135 L (136-145) mmol/L Potassium 3.5 (3.5-5.1) mmol/L Chloride 103 (98-107) mmol/L Carbon Dioxide 25 (21-32) mmol/L Anion Gap 7 (3-11) BUN 12 (6-23) mg/dl Creatinine 0.80 (0.6-1.4) mg/dl Est Cr Clr Drug Dosing 78.4 ml/min Est GFR ( Amer) 107.1 ml/min Est GFR (Non-Af Amer) 92.4 ml/min BUN/Creatinine Ratio 15.0 (10-20) Glucose 93 (70-99(Fasting)) mg/dl Osmolality (280-300) mOsm/kg Calcium 8.3 L (8.5-10.1) mg/dl Phosphorus 2.9 (2.5-4.9) mg/dl Magnesium 1.8 (1.7-2.4) mg/dl Total Bilirubin 0.9 D (0.2-1.0) mg/dl Direct Bilirubin 0.3 H (0-0.2) mg/dl AST 60 H (13-39) U/L ALT 49 (7-52) U/L Alkaline Phosphatase 64 (34-104) U/L Total Protein 6.8 (6.0-8.3) gm/dl Albumin 3.4 (3.4-5.0) gm/dl Globulin (2.5-4.0) gm/dl Albumin/Globulin Ratio (0.9-2) Vitamin B12 447 (180-914) pg/ml TSH (0.300-4.500) uIu/ml Urine Color Urine Appearance (Clear) Urine pH (4.5-7.5) Ur Specific [place] (1.000-1.030) Urine Protein (Negative) Urine Glucose (UA) (Negative) Urine Ketones (Negative) Urine Blood (Negative) Urine Nitrite (Negative) Urine Bilirubin (Negative) Urine Urobilinogen (Negative) Ur Leukocyte Esterase (Negative) Urine WBC (Auto) (0-5) /hpf Urine RBC (Auto) (0-4) /hpf U Hyaline Cast (Auto) (0-5) /lpf U Epithel Cells (Auto) (0-5) /lpf Urine Bacteria (Auto) (Negative) Urine Osmolality (500-800) mOsm/kg Urine Sodium mmol/L Urine Potassium mmol/L Urine Chloride mmol/L Salicylates (3.0-30) mg/dl Urine Opiates Screen (Neg) Ur Methadone, Qual (Neg) Acetaminophen (10-30) ug/ml Urine Barbiturates (Neg) Ur Phencyclidine (PCP) (Neg) U Amphetamin/Meth Scrn (Neg) MDMA (Ecstasy) Screen (Neg) U Benzodiazepines Scrn (Neg) Ur Cocaine Metabolite (Neg) U Marijuana (THC) Screen (Neg) Ethyl Alcohol mg/dL (<10.0) mg/dl SARS-CoV-2, RNA, NAAT (NEGATIVE) 11/30/21 11/30/21 11/30/21 Range/Units 16:55 16:55 16:55 WBC (4.8-10.8) K/ul RBC (4.63-6.08) M/uL Hgb (14.0-18.0) g/dl Hct (40.1-51.0) % MCV (80.0-100.0) fL MCH (25.0-34.0) pg MCHC (32.0-36.0) g/dL RDW Std Deviation (36.4-46.3) fL RDW Coeff of Arielle (11.5-14.5) % Plt Count (130-400) K/uL MPV (9.4-12.4) fL Immature Gran % (Auto) % Neut % (Auto) % Lymph % (Auto) % [place] % (Auto) % Eos % (Auto) % Baso % (Auto) % Neut # (Auto) (1.4-6.5) K/uL Lymph # (Auto) (1.2-3.4) K/uL [place] # (Auto) (0.24-0.82) K/uL Eos # (Auto) (0-0.50) K/uL Baso # (Auto) (0-0.2) K/uL Immature Gran # (Auto) (0.00-0.02) K/uL Sodium (136-145) mmol/L Potassium (3.5-5.1) mmol/L Chloride (98-107) mmol/L Carbon Dioxide (21-32) mmol/L Anion Gap (3-11) BUN (6-23) mg/dl Creatinine (0.6-1.4) mg/dl Est Cr Clr Drug Dosing ml/min Est GFR ( Amer) ml/min Est GFR (Non-Af Amer) ml/min BUN/Creatinine Ratio (10-20) Glucose (70-99(Fasting)) mg/dl Osmolality 273 L (280-300) mOsm/kg Calcium (8.5-10.1) mg/dl Phosphorus (2.5-4.9) mg/dl Magnesium (1.7-2.4) mg/dl Total Bilirubin (0.2-1.0) mg/dl Direct Bilirubin (0-0.2) mg/dl AST (13-39) U/L ALT (7-52) U/L Alkaline Phosphatase (34-104) U/L Total Protein (6.0-8.3) gm/dl Albumin (3.4-5.0) gm/dl Globulin (2.5-4.0) gm/dl Albumin/Globulin Ratio (0.9-2) Vitamin B12 (180-914) pg/ml TSH (0.300-4.500) uIu/ml Urine Color Urine Appearance (Clear) Urine pH (4.5-7.5) Ur Specific [place] (1.000-1.030) Urine Protein (Negative) Urine Glucose (UA) (Negative) Urine Ketones (Negative) Urine Blood (Negative) Urine Nitrite (Negative) Urine Bilirubin (Negative) Urine Urobilinogen (Negative) Ur Leukocyte Esterase (Negative) Urine WBC (Auto) (0-5) /hpf Urine RBC (Auto) (0-4) /hpf U Hyaline Cast (Auto) (0-5) /lpf U Epithel Cells (Auto) (0-5) /lpf Urine Bacteria (Auto) (Negative) Urine Osmolality 153 L (500-800) mOsm/kg Urine Sodium < 10 mmol/L Urine Potassium 27.5 mmol/L Urine Chloride < 15 mmol/L Salicylates (3.0-30) mg/dl Urine Opiates Screen (Neg) Ur Methadone, Qual (Neg) Acetaminophen (10-30) ug/ml Urine Barbiturates (Neg) Ur Phencyclidine (PCP) (Neg) U Amphetamin/Meth Scrn (Neg) MDMA (Ecstasy) Screen (Neg) U Benzodiazepines Scrn (Neg) Ur Cocaine Metabolite (Neg) U Marijuana (THC) Screen (Neg) Ethyl Alcohol mg/dL (<10.0) mg/dl SARS-CoV-2, RNA, NAAT (NEGATIVE) 11/30/21 11/30/21 11/30/21 Range/Units 16:55 16:55 16:55 WBC (4.8-10.8) K/ul RBC (4.63-6.08) M/uL Hgb (14.0-18.0) g/dl Hct (40.1-51.0) % MCV (80.0-100.0) fL MCH (25.0-34.0) pg MCHC (32.0-36.0) g/dL RDW Std Deviation (36.4-46.3) fL RDW Coeff of Arielle (11.5-14.5) % Plt Count (130-400) K/uL MPV (9.4-12.4) fL Immature Gran % (Auto) % Neut % (Auto) % Lymph % (Auto) % [place] % (Auto) % Eos % (Auto) % Baso % (Auto) % Neut # (Auto) (1.4-6.5) K/uL Lymph # (Auto) (1.2-3.4) K/uL [place] # (Auto) (0.24-0.82) K/uL Eos # (Auto) (0-0.50) K/uL Baso # (Auto) (0-0.2) K/uL Immature Gran # (Auto) (0.00-0.02) K/uL Sodium (136-145) mmol/L Potassium (3.5-5.1) mmol/L Chloride (98-107) mmol/L Carbon Dioxide (21-32) mmol/L Anion Gap (3-11) BUN (6-23) mg/dl Creatinine (0.6-1.4) mg/dl Est Cr Clr Drug Dosing ml/min Est GFR ( Amer) ml/min Est GFR (Non-Af Amer) ml/min BUN/Creatinine Ratio (10-20) Glucose (70-99(Fasting)) mg/dl Osmolality (280-300) mOsm/kg Calcium (8.5-10.1) mg/dl Phosphorus (2.5-4.9) mg/dl Magnesium (1.7-2.4) mg/dl Total Bilirubin (0.2-1.0) mg/dl Direct Bilirubin (0-0.2) mg/dl AST (13-39) U/L ALT (7-52) U/L Alkaline Phosphatase (34-104) U/L Total Protein (6.0-8.3) gm/dl Albumin (3.4-5.0) gm/dl Globulin (2.5-4.0) gm/dl Albumin/Globulin Ratio (0.9-2) Vitamin B12 (180-914) pg/ml TSH (0.300-4.500) uIu/ml Urine Color Yellow Urine Appearance Clear (Clear) Urine pH 5.5 (4.5-7.5) Ur Specific [place] 1.007 (1.000-1.030) Urine Protein 1+ H (Negative) Urine Glucose (UA) Negative (Negative) Urine Ketones Negative (Negative) Urine Blood Negative (Negative) Urine Nitrite Negative (Negative) Urine Bilirubin Negative (Negative) Urine Urobilinogen Negative (Negative) Ur Leukocyte Esterase Negative (Negative) Urine WBC (Auto) 1-5 (0-5) /hpf Urine RBC (Auto) 0-4 (0-4) /hpf U Hyaline Cast (Auto) 1-5 (0-5) /lpf U Epithel Cells (Auto) 10-20 H (0-5) /lpf Urine Bacteria (Auto) Negative (Negative) Urine Osmolality (500-800) mOsm/kg Urine Sodium mmol/L Urine Potassium mmol/L Urine Chloride mmol/L Salicylates (3.0-30) mg/dl Urine Opiates Screen Neg (Neg) Ur Methadone, Qual Neg (Neg) Acetaminophen (10-30) ug/ml Urine Barbiturates Neg (Neg) Ur Phencyclidine (PCP) Neg (Neg) U Amphetamin/Meth Scrn Neg (Neg) MDMA (Ecstasy) Screen Neg (Neg) U Benzodiazepines Scrn Neg (Neg) Ur Cocaine Metabolite Neg (Neg) U Marijuana (THC) Screen Neg (Neg) Ethyl Alcohol mg/dL (<10.0) mg/dl SARS-CoV-2, RNA, NAAT NEGATIVE (NEGATIVE) 11/30/21 11/30/21 11/30/21 Range/Units 16:55 16:55 16:55 WBC (4.8-10.8) K/ul RBC (4.63-6.08) M/uL Hgb (14.0-18.0) g/dl Hct (40.1-51.0) % MCV (80.0-100.0) fL MCH (25.0-34.0) pg MCHC (32.0-36.0) g/dL RDW Std Deviation (36.4-46.3) fL RDW Coeff of Arielle (11.5-14.5) % Plt Count (130-400) K/uL MPV (9.4-12.4) fL Immature Gran % (Auto) % Neut % (Auto) % Lymph % (Auto) % [place] % (Auto) % Eos % (Auto) % Baso % (Auto) % Neut # (Auto) (1.4-6.5) K/uL Lymph # (Auto) (1.2-3.4) K/uL [place] # (Auto) (0.24-0.82) K/uL Eos # (Auto) (0-0.50) K/uL Baso # (Auto) (0-0.2) K/uL Immature Gran # (Auto) (0.00-0.02) K/uL Sodium (136-145) mmol/L Potassium (3.5-5.1) mmol/L Chloride (98-107) mmol/L Carbon Dioxide (21-32) mmol/L Anion Gap (3-11) BUN (6-23) mg/dl Creatinine (0.6-1.4) mg/dl Est Cr Clr Drug Dosing ml/min Est GFR ( Amer) ml/min Est GFR (Non-Af Amer) ml/min BUN/Creatinine Ratio (10-20) Glucose (70-99(Fasting)) mg/dl Osmolality (280-300) mOsm/kg Calcium (8.5-10.1) mg/dl Phosphorus (2.5-4.9) mg/dl Magnesium (1.7-2.4) mg/dl Total Bilirubin (0.2-1.0) mg/dl Direct Bilirubin (0-0.2) mg/dl AST (13-39) U/L ALT (7-52) U/L Alkaline Phosphatase (34-104) U/L Total Protein (6.0-8.3) gm/dl Albumin (3.4-5.0) gm/dl Globulin (2.5-4.0) gm/dl Albumin/Globulin Ratio (0.9-2) Vitamin B12 (180-914) pg/ml TSH 1.511 (0.300-4.500) uIu/ml Urine Color Urine Appearance (Clear) Urine pH (4.5-7.5) Ur Specific [place] (1.000-1.030) Urine Protein (Negative) Urine Glucose (UA) (Negative) Urine Ketones (Negative) Urine Blood (Negative) Urine Nitrite (Negative) Urine Bilirubin (Negative) Urine Urobilinogen (Negative) Ur Leukocyte Esterase (Negative) Urine WBC (Auto) (0-5) /hpf Urine RBC (Auto) (0-4) /hpf U Hyaline Cast (Auto) (0-5) /lpf U Epithel Cells (Auto) (0-5) /lpf Urine Bacteria (Auto) (Negative) Urine Osmolality (500-800) mOsm/kg Urine Sodium mmol/L Urine Potassium mmol/L Urine Chloride mmol/L Salicylates < 3.0 L (3.0-30) mg/dl Urine Opiates Screen (Neg) Ur Methadone, Qual (Neg) Acetaminophen < 3 L (10-30) ug/ml Urine Barbiturates (Neg) Ur Phencyclidine (PCP) (Neg) U Amphetamin/Meth Scrn (Neg) MDMA (Ecstasy) Screen (Neg) U Benzodiazepines Scrn (Neg) Ur Cocaine Metabolite (Neg) U Marijuana (THC) Screen (Neg) Ethyl Alcohol mg/dL < 10.0 (<10.0) mg/dl SARS-CoV-2, RNA, NAAT (NEGATIVE) 11/30/21 11/30/21 Range/Units 16:55 16:55 WBC 7.52 (4.8-10.8) K/ul RBC 4.22 L (4.63-6.08) M/uL Hgb 14.4 (14.0-18.0) g/dl Hct 40.6 (40.1-51.0) % MCV 96.2 (80.0-100.0) fL MCH 34.1 H (25.0-34.0) pg MCHC 35.5 (32.0-36.0) g/dL RDW Std Deviation 41.0 (36.4-46.3) fL RDW Coeff of Arielle 11.9 (11.5-14.5) % Plt Count 228 (130-400) K/uL MPV 9.4 (9.4-12.4) fL Immature Gran % (Auto) 0.4 % Neut % (Auto) 66.4 % Lymph % (Auto) 21.0 % [place] % (Auto) 11.2 % Eos % (Auto) 0.5 % Baso % (Auto) 0.5 % Neut # (Auto) 4.99 (1.4-6.5) K/uL Lymph # (Auto) 1.58 (1.2-3.4) K/uL [place] # (Auto) 0.84 H (0.24-0.82) K/uL Eos # (Auto) 0.04 (0-0.50) K/uL Baso # (Auto) 0.04 (0-0.2) K/uL Immature Gran # (Auto) 0.03 H (0.00-0.02) K/uL Sodium 128 L (136-145) mmol/L Potassium 3.8 (3.5-5.1) mmol/L Chloride 91 L (98-107) mmol/L Carbon Dioxide 25 (21-32) mmol/L Anion Gap 12 H (3-11) BUN 8 (6-23) mg/dl Creatinine 1.09 (0.6-1.4) mg/dl Est Cr Clr Drug Dosing 58.5 ml/min Est GFR ( Amer) 81.0 ml/min Est GFR (Non-Af Amer) 69.9 ml/min BUN/Creatinine Ratio 7.3 L (10-20) Glucose 89 (70-99(Fasting)) mg/dl Osmolality (280-300) mOsm/kg Calcium 9.4 (8.5-10.1) mg/dl Phosphorus (2.5-4.9) mg/dl Magnesium (1.7-2.4) mg/dl Total Bilirubin 1.5 H (0.2-1.0) mg/dl Direct Bilirubin (0-0.2) mg/dl AST 84 H (13-39) U/L ALT 66 H (7-52) U/L Alkaline Phosphatase 76 (34-104) U/L Total Protein 8.2 (6.0-8.3) gm/dl Albumin 4.0 (3.4-5.0) gm/dl Globulin 4.2 H (2.5-4.0) gm/dl Albumin/Globulin Ratio 1.0 (0.9-2) Vitamin B12 (180-914) pg/ml TSH (0.300-4.500) uIu/ml Urine Color Urine Appearance (Clear) Urine pH (4.5-7.5) Ur Specific Randolph (1.000-1.030) Urine Protein (Negative) Urine Glucose (UA) (Negative) Urine Ketones (Negative) Urine Blood (Negative) Urine Nitrite (Negative) Urine Bilirubin (Negative) Urine Urobilinogen (Negative) Ur Leukocyte Esterase (Negative) Urine WBC (Auto) (0-5) /hpf Urine RBC (Auto) (0-4) /hpf U Hyaline Cast (Auto) (0-5) /lpf U Epithel Cells (Auto) (0-5) /lpf Urine Bacteria (Auto) (Negative) Urine Osmolality (500-800) mOsm/kg Urine Sodium mmol/L Urine Potassium mmol/L Urine Chloride mmol/L Salicylates (3.0-30) mg/dl Urine Opiates Screen (Neg) Ur Methadone, Qual (Neg) Acetaminophen (10-30) ug/ml Urine Barbiturates (Neg) Ur Phencyclidine (PCP) (Neg) U Amphetamin/Meth Scrn (Neg) MDMA (Ecstasy) Screen (Neg) U Benzodiazepines Scrn (Neg) Ur Cocaine Metabolite (Neg) U Marijuana (THC) Screen (Neg) Ethyl Alcohol mg/dL (<10.0) mg/dl SARS-CoV-2, RNA, NAAT (NEGATIVE) Medications Administered Amlodipine Besylate (Amlodipine Besylate 5 Mg Tab) 5 mg PO DAILY JOHN Stop: 12/31/21 00:23 Last Admin: 12/01/21 10:09 Dose: 5 mg Documented By: Admin: 12/01/21 01:24 Dose: 5 mg Documented By: SHAYY Enoxaparin Sodium (Enoxaparin Inj 40 Mg/0.4 Ml Syr) 40 mg SQ [facility] Stop: 12/31/21 08:59 Last Admin: 12/01/21 10:10 Dose: Not Given Documented By: BRIAN Folic Acid (Folic Acid 1 Mg Tab) 1 mg PO [facility] Stop: 12/31/21 00:23 Last Admin: 12/01/21 10:09 Dose: 1 mg Documented By: Admin: 12/01/21 01:25 Dose: 1 mg Documented By: SHAYY Nicotine (Nicotine 14 Mg/24 Hr Patch) 14 mg TD [facility] Stop: 12/31/21 08:59 Last Admin: 12/01/21 10:08 Dose: 14 mg Documented By: BRIAN Coding Level of Care Code 26260 U Intl Hosp Care Lvl 2 Diagnoses Altered mental status R41.82 Hyponatremia E87.1 Alcohol abuse F10.10
[2021-12-02] MEDS: GABAPENTIN 600 MG TAB PO SCH ×3 (04:53→23:25)
[2021-12-02 06:49] LABS: BUN Creatinine Ratio 16.5 (10-20); Calcium 8.6 mg/dl (8.5-10.1); Creatinine Clr Calc Pharmacy 79.4 ml/min; Est GFR (African American) 107.7 ml/min; Est GFR (Non-African American) 92.9 ml/min; Potassium 3.6 mmol/L (3.5-5.1)
[2021-12-02] MEDS: amLODIPine BESYLATE 5 MG TAB PO SCH (07:47)
[2021-12-02] MEDS: NICOTINE 14 MG/24 HR PATCH TD SCH (07:48)
[2021-12-02] MEDS: FOLIC ACID 1 MG TAB PO SCH (07:48)
[2021-12-02] MEDS: THIAMINE HCL 100 MG TAB PO SCH (07:48)
[2021-12-02] MEDS: ENOXAPARIN INJ 40 MG/0.4 ML SYR SQ SCH (07:52)
[2021-12-02] MEDS ORDERED: LORazepam 3 MG in SYRINGE 1.5 ML IV PRN (10:33)
[2021-12-02] MEDS ORDERED: Ativan IV Alcohol Withdrawal--Active Protocol IV PRN (10:33)
[2021-12-02] MEDS ORDERED: hydrALAZINE HCL 20 MG/ML VIAL IV PRN (10:33)
[2021-12-02] MEDS ORDERED: Ativan PO Alcohol Withdrawal--Active Protocol PO PRN (10:33)
[2021-12-02] MEDS ORDERED: LORazepam 1 MG in SYRINGE 0.5 ML IV PRN (10:33)
[2021-12-02] MEDS ORDERED: LORazepam 2 MG in SYRINGE 1 ML IV PRN (10:33)
--- NOTE | 2021-12-02 15:09 | Communication Note ---
Date of Service: December 02, 2021 Interim progress reviewed. Liaisons will continue to round. Per nursing reports he slept and has been cooperative and without agitation. CM note indicates that Office of Aging is active/planning follow up. Continue AWSS with BP monitoring.
--- NOTE | 2021-12-02 17:48 | Electrocardiogram Report ---
Test Reason : Blood Pressure : / mmHG Vent. Rate : 103 BPM Atrial Rate : 103 BPM P-R Int : 154 ms QRS Dur : 114 ms QT Int : 358 ms P-R-T Axes : 066 -72 052 degrees QTc Int : 468 ms Sinus tachycardia Right bundle branch block Left anterior fascicular block Bifascicular block Anterior infarct , age undetermined Abnormal ECG No previous ECGs available Confirmed by Aaron Tsang ([id number]) on 12/02/2021 5:48:27 PM Referred By: REFERRED SELF Confirmed By:Aaron Tsang
--- NOTE | 2021-12-02 18:00 | Hospitalist Progress Note ---
Date of Service December 02, 2021 Assessment & Plan (1) Hyponatremia: Plan: Na 128, now 135 this am, hypotonic hyponatremia likely related to tea and toast diet in setting of excessive alcohol use. 12/02 Sodium level remains at 135 Continue to monitor (2) Alcohol abuse: Plan: Last drink 1 day prior to admission Positive hand tremors Continue gabapentin protocol taper Continue IV Ativan as needed Patient interested to transition to alcohol rehab Will relate to foster care case manager (3) Transaminitis: Plan: Mildly elevated related to alcohol use. Improved. (4) Paranoia: Plan: No signs of paranoia today (5) Hypertension: Plan: Blood pressure elevated Likely contributed by alcohol withdrawal On amlodipine 5 mg mg p.o. daily, increased to 10 mg p.o. daily As needed hydralazine (6) Tobacco abuse: Plan: Nicoderm patch. Smoking cessation advised. Plan Currently on gabapentin protocol Hypertension management in progress Awaiting psychiatric records as well Disposition Patient interested to transition to alcohol rehab Admission and Anticipated Discharge Date Admission Date: November 30, 2021 Subjective Follow-up for alcohol withdrawal, 302 petition, etc. Resting in bed, comfortable, sitting up, in good spirits , Cooperative, oriented x3, answers all questions appropriately States he is having mild tremors of his hands today Denies anxiety, confusion, hallucinations, sweats No abdominal pain, nausea vomiting, fevers or chills no chest pain, dyspnea, palpitations, dizziness Denies depression No other symptoms Review of Systems Review of Systems: all noted and negative except for above Physical Exam Physical Exam: General- oriented x 3, not in distress, speaks in sentences with no effort or accessory muscle use Eyes- anicteric Neck- no JVD Lungs- clear breath sounds bilaterally, no rales/wheezes Heart- normal rate, regular rhythm; no murmurs Abdomen- normal bowel sounds, nondistended, soft, nontender Extremities- no pretibial edema, no calf tenderness Mild bilateral hand tremors Neuro- alert, oriented x 3; no gross focal neurologic deficits Skin- warm & dry Psych-smiling, pleasant, denies anxiety or depression Occasionally gets tearful when admitting that he regrets to drinking alcohol Results & Data Results & Data ([facility]) Vital Signs (Past 12 Hours) Vital Signs Temp Pulse Resp BP BP Pulse Ox O2 Del Method 12/02/21 15:25 36.7 C 93 H 20 163/79 H 96 Room Air 12/02/21 06:47 36.9 C 93 H 20 171/81 H 93 Room Air 12/02/21 06:41 36.8 C 90 16 147/90 H 95 Room Air all noted and reviewed including below
[2021-12-03] MEDS: THIAMINE HCL 100 MG TAB PO SCH (08:10)
[2021-12-03] MEDS: amLODIPine BESYLATE 5 MG TAB PO SCH (08:10)
[2021-12-03] MEDS: FOLIC ACID 1 MG TAB PO SCH (08:10)
[2021-12-03] MEDS: ENOXAPARIN INJ 40 MG/0.4 ML SYR SQ SCH (08:11)
[2021-12-03] MEDS: NICOTINE 14 MG/24 HR PATCH TD SCH (08:12)
[2021-12-03] MEDS ORDERED: amLODIPine BESYLATE 5 MG TAB PO ONE (09:00)
--- NOTE | 2021-12-03 10:30 | Hospitalist Progress Note ---
Date of Service December 03, 2021 Assessment & Plan (1) Hyponatremia: Plan: Na 128, now 135 this am, hypotonic hyponatremia likely related to tea and toast diet in setting of excessive alcohol use. 12/03: Sodium level remains at 135 Continue to monitor (2) Alcohol abuse: Plan: Last drink 1 day prior to admission tremors resolved, no overt alcohol withdrawal symptoms Continue gabapentin protocol taper Continue IV Ativan as needed Patient interested to transition to alcohol rehab relayed to therapeutic case manager (3) Transaminitis: Plan: Mildly elevated related to alcohol use. Improved. (4) Paranoia: Plan: No signs of paranoia today Psychiatry on board, Dr. Samaniego: "admit for AMS/hyponatremia and worsening paranoia which appears to be longstanding (several years) yet worse in past 2 weeks. Likely suggests underlying cognitive disorder (alcohol induced dementia vs. microvascular, etc.). He is refusing rehab and is focussed on returning home. There is no evidence of eduin on exam or hx of schizophrenia. His condition does not fall under mental health procedures act since most likely dementia and/or substance induced but I share family concerns about his ability to care for self at home. Dr. Sampson to involve CM in discharge planning. He has no acute intent to harm anyone and family confirms no known weapons. 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 daily, increased to 10 mg p.o. daily As needed hydralazine monitor after alcohol withdrawal protocol, re-eval BP, may need lower dose Amlodipine on d/c (6) Tobacco abuse: Plan: Nicoderm patch. Smoking cessation advised. Plan Disposition Patient interested to transition to alcohol rehab case management on board Admission and Anticipated Discharge Date Admission Date: November 30, 2021 Subjective ff up for alcohol withdrawal, etc seen resting in bed, comfortable pleasant, oriented x 3, not in distress states he feels fine overall tremors resolved denies anxiety, hallucinations, confusion no other symptoms Review of Systems Review of Systems: all noted and negative except for above Physical Exam Physical Exam: General- oriented x 3, not in distress, speaks in sentences with no effort or accessory muscle use Eyes- anicteric Neck- no JVD Lungs- clear breath sounds bilaterally, no rales/wheezes Heart- normal rate, regular rhythm; no murmurs Abdomen- normal bowel sounds, nondistended, soft, nontender Extremities- no pretibial edema, no calf tenderness no tremors Neuro- alert, oriented x 3; no gross focal neurologic deficits Skin- warm & dry Results & Data Results & Data ([facility]) Vital Signs (Past 12 Hours) Vital Signs Temp Pulse Resp BP Pulse Ox O2 Del Method 12/03/21 07:47 36.6 C 80 18 154/85 H 93 Room Air 12/02/21 23:05 37.3 C 111 H 18 142/90 H 98 Room Air
[2021-12-03] MEDS: GABAPENTIN 600 MG TAB PO SCH (11:49)
[2021-12-04] MEDS: LORazepam 0.5 MG in SYRINGE 0.25 ML IV PRN ×3 (01:07→14:03)
[2021-12-04] MEDS ORDERED: amLODIPine BESYLATE 5 MG TAB PO SCH (09:00)
[2021-12-04] MEDS: NICOTINE 14 MG/24 HR PATCH TD SCH (09:32)
[2021-12-04] MEDS: ENOXAPARIN INJ 40 MG/0.4 ML SYR SQ SCH (09:34)
[2021-12-04] MEDS: THIAMINE HCL 100 MG TAB PO SCH (09:34)
[2021-12-04] MEDS: FOLIC ACID 1 MG TAB PO SCH (09:34)
[2021-12-04] MEDS ORDERED: GABAPENTIN 600 MG TAB PO SCH (11:00)
--- NOTE | 2021-12-04 13:39 | Hospitalist Progress Note ---
Date of Service December 04, 2021 Assessment & Plan (1) Hyponatremia: Plan: Na 128, now 135 this am, hypotonic hyponatremia likely related to tea and toast diet in setting of excessive alcohol use. Remains asymptomatic and Sodium level is 135 as of 12/04/2021 (2) Alcohol abuse: Plan: Last drink 1 day prior to admission tremors resolved, no overt alcohol withdrawal symptoms Continue gabapentin protocol taper Continue IV Ativan as needed Patient interested to transition to alcohol rehab No signs and/or symptoms of alcohol withdrawal Has been ambulating in the room without any difficulties He will be going home this afternoon (3) Transaminitis: Plan: Mildly elevated related to alcohol use. Improved. Secondary to use of alcohol (4) Paranoia: Plan: No signs of paranoia today Psychiatry on board, Dr. Samaniego: "admit for AMS/hyponatremia and worsening paranoia which appears to be longstanding (several years) yet worse in past 2 weeks. Likely suggests underlying cognitive disorder (alcohol induced dementia vs. microvascular, etc.). He is refusing rehab and is focussed on returning home. There is no evidence of eduin on exam or hx of schizophrenia. His condition does not fall under mental health procedures act since most likely dementia and/or substance induced but I share family concerns about his ability to care for self at home. Dr. Sampson to involve CM in discharge planning. He has no acute intent to harm anyone and family confirms no known weapons. 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 daily, increased to 10 mg p.o. daily As needed hydralazine monitor after alcohol withdrawal protocol, re-eval BP, may need lower dose Amlodipine on d/c (6) Tobacco abuse: Plan: Nicoderm patch. Smoking cessation advised. Plan Disposition Office of aging is involved He will be discharged home this afternoon with follow-up of with office of aging as an outpatient Admission and Anticipated Discharge Date Admission Date: November 30, 2021 Subjective 12/04/2021 The patient was seen and examined in medical telemetry unit He has been feeling much better and denies any symptoms whatsoever He wants to go home if possible Review of Systems Review of Systems: All systems reviewed and are unremarkable except as noted below Physical Exam Physical Exam: Lying in bed comfortably Constitutional: well developed and well nourished; not ill appearing Eyes: PERRL, conjunctivae normal, anicteric sclerae ENMT: external ear and nose normal, oropharynx normal Neck: trachea midline, no thyromegaly Respiratory: no respiratory distress Auscultation: lungs clear to auscultation bilaterally Cardiovascular: Rate/Rhythm: regular rate and regular rhythm; not tachycardic Heart Sounds: normal S1 and normal S2; no murmur Extremities: no edema Gastrointestinal (Abdomen): Inspection/Auscultation: normal bowel sounds; abdomen not distended Percussion/Palpation: abdomen soft; abdomen nontender Musculoskeletal: No acute arthritis in any joint Neurologic: .Alert, awake and oriented x3. A little apprehensive with the code that happened with the other patient in the room Lymphatic: no cervical or axillary lymphadenopathy Results & Data Results & [facility] ([facility]) Vital Signs (Past 12 Hours) Vital Signs Temp Pulse Resp BP Pulse Ox O2 Del Method 12/04/21 11:45 36.5 C 93 H 18 147/92 H 96 Room Air 12/04/21 08:07 36.7 C 87 18 154/100 H 97 Room Air Medications Administered Current Inpatient Medications Amlodipine Besylate (Amlodipine Besylate 5 Mg Tab) 10 mg PO DAILY JOHN Stop: 01/03/22 08:59 Last Admin: 12/04/21 09:33 Dose: 10 mg Enoxaparin Sodium (Enoxaparin Inj 40 Mg/0.4 Ml Syr) 40 mg SQ QAM JOHN Stop: 12/31/21 08:59 Last Admin: 12/04/21 09:34 Dose: 40 mg Folic Acid (Folic Acid 1 Mg Tab) 1 mg PO QAM [facility] Stop: 12/31/21 00:23 Last Admin: 12/04/21 09:34 Dose: 1 mg Hydralazine HCl (Hydralazine Hcl 20 Mg/Ml Vial) 5 mg IV Q6H PRN PRN Reason: SYSTOLIC BP GREATER THAN 160 Stop: 01/01/22 10:44 Lorazepam 1 mg/ Syringe 1 mls @ 2 mls/min IV UD PRN; Protocol PRN Reason: EtOH Withdrawal AWSS Score 6,7 Stop: 01/01/22 10:32 Lorazepam 2 mg/ Syringe 2 mls @ 2 mls/min IV UD PRN; Protocol PRN Reason: EtOH Withdrawal AWSS Score 8,9 Stop: 01/01/22 10:32 Lorazepam 3 mg/ Syringe 3 mls @ 2 mls/min IV ONCE PRN; Protocol PRN Reason: EtOH Withdrawal AWSS Score 10 & above Lorazepam 0.5 mg/ Syringe 0.5 mls @ 2 mls/min IV Q4H PRN PRN Reason: Anxiety Stop: 01/01/22 10:32 Last Admin: 12/04/21 07:49 Dose: 2 mls/min Miscellaneous (Remove Nicoderm Patch) 1 each N/A DAILY@0859 [facility] Stop: 01/01/22 08:58 Last Admin: 12/04/21 09:32 Dose: 1 each Nicotine (Nicotine 14 Mg/24 Hr Patch) 14 mg TD QAM [facility] Stop: 12/31/21 08:59 Last Admin: 12/04/21 09:32 Dose: 14 mg Thiamine HCl (Thiamine Hcl 100 Mg Tab) 100 mg PO QAM [facility] Stop: 01/01/22 08:59 Last Admin: 12/04/21 09:34 Dose: 100 mg
--- NOTE | 2021-12-04 15:24 | Psychiatric Progress Note ---
Date of Service December 04, 2021 Impression / Recommendations Impression as per initial consult: 66 yo male with no formal psych hx but hx of signifcant ETOH abuse/dependence, admit for AMS/hyponatremia and worsening paranoia which appears to be longstanding (several years) yet worse in past 2 weeks. Likely suggests underlying cognitive disorder (alcohol induced dementia vs. microvascular, etc.). He is refusing rehab and is focussed on returning home. There is no evidence of eduin on exam or hx of schizophrenia. His condition does not fall under mental health procedures act since most likely dementia and/or substance induced but I share family concerns about his ability to care for self at home. Dr. Sampson to involve CM in discharge planning. He has no acute intent to harm anyone and family confirms no known weapons. 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 12/04/21: AMS improved. (1) Altered mental status: (2) Hyponatremia: (3) Alcohol abuse: Plan continues to decline therapy/D&A. declines trial of an antidepressant and much of his presentation seems situational main intervention is office of aging f/u per CM (arranged) Risk Factors Assessment Do You Have Access To A Gun?: No (niece confirmed were removed. ) Interval History Identifying Information 66 yo male from [facility], admit medically for hyponatremia after being brought to ED by family for lack of self care and paranoia. Chief Complaint f/u to initial consult for "the blues" Review of Systems Notes denies n/v/d/ROMO Subjective Subjective Patient was seen & assessed and interval progress reviewed with nursing. He has been cooperative on the medical floor without any evidence of grant or psychosis. As he typically lives alone he seems to enjoy talking with nursing about past losses of friends and activities he used to enjoy. He doesn't view this as depression, some of the lability/tearfulness coincides with his withdrawal. He continues to deny thoughts to harm self or others. Physical Exam Psychiatric Orientation: alert Apperance: appropriately groomed Eye Contact: good eye contact Motor Behavior: no abnormal motor movements Speech: normal rate/rhythm/volume of speech Affect: + blunted affect Mood: no depressed mood Thought Process: + circumstantial thought process Thought Content: no delusions Suicidal Thoughts: denies suicidal thoughts Homicidal Thoughts: denies homicidal thoughts Hallucinations: no auditory hallucinations and no visual hallucinations Cognition: attention grossly intact and language grossly intact Estimated Intelligence: consistent with education level Insight: + limited insight Judgement: + limited judgement Vital Signs (Past 24 Hours) Last Vital Signs Temp 36.5 C 12/04/21 14:37 Pulse 93 H 12/04/21 14:37 Resp 18 12/04/21 14:37 BP 147/92 H 12/04/21 14:37 Pulse Ox 96 12/04/21 14:37 O2 Del Method 12/04/21 11:45 Results & Data ([facility]) Current Inpatient Medications Current Inpatient Medications: Current Inpatient Medications Amlodipine Besylate (Amlodipine Besylate 5 Mg Tab) 10 mg PO DAILY [facility] Stop: 01/03/22 08:59 Last Admin: 12/04/21 09:33 Dose: 10 mg Enoxaparin Sodium (Enoxaparin Inj 40 Mg/0.4 Ml Syr) 40 mg SQ QAM JOHN Stop: 12/31/21 08:59 Last Admin: 12/04/21 09:34 Dose: 40 mg Folic Acid (Folic Acid 1 Mg Tab) 1 mg PO QAM JOHN Stop: 12/31/21 00:23 Last Admin: 12/04/21 09:34 Dose: 1 mg Hydralazine HCl (Hydralazine Hcl 20 Mg/Ml Vial) 5 mg IV Q6H PRN PRN Reason: SYSTOLIC BP GREATER THAN 160 Stop: 01/01/22 10:44 Lorazepam 1 mg/ Syringe 1 mls @ 2 mls/min IV UD PRN; Protocol PRN Reason: EtOH Withdrawal AWSS Score 6,7 Stop: 01/01/22 10:32 Lorazepam 2 mg/ Syringe 2 mls @ 2 mls/min IV UD PRN; Protocol PRN Reason: EtOH Withdrawal AWSS Score 8,9 Stop: 01/01/22 10:32 Lorazepam 3 mg/ Syringe 3 mls @ 2 mls/min IV ONCE PRN; Protocol PRN Reason: EtOH Withdrawal AWSS Score 10 & above Lorazepam 0.5 mg/ Syringe 0.5 mls @ 2 mls/min IV Q4H PRN PRN Reason: Anxiety Stop: 01/01/22 10:32 Last Admin: 12/04/21 14:03 Dose: 2 mls/min Miscellaneous (Remove Nicoderm Patch) 1 each N/A DAILY@0859 [facility] Stop: 01/01/22 08:58 Last Admin: 12/04/21 09:32 Dose: 1 each Nicotine (Nicotine 14 Mg/24 Hr Patch) 14 mg TD QAM [facility] Stop: 12/31/21 08:59 Last Admin: 12/04/21 09:32 Dose: 14 mg Thiamine HCl (Thiamine Hcl 100 Mg Tab) 100 mg PO QAM [facility] Stop: 01/01/22 08:59 Last Admin: 12/04/21 09:34 Dose: 100 mg
--- NOTE | 2021-12-05 07:56 | Discharge Summary ---
Date of Service December 05, 2021 Admission HPI Per Admitting Provider 66 year old male with history of alcohol abuse, tobacco abuse who was brought to the ED by family for paranoia. Per triage note- 'family reports- paranoid, etoh use, longstanding history of mental health, feels like family wants to hurt him, refuse SI/HI'. During my encounter, he was AAOx2, lying in bed. He is tangential and speech is at times difficult to understand. States he lives by himself. Denies any hallucinations or hearing voices. Denies any suicidal or homicidal ideation. Doesn't take any medications. States last saw a doctor a year ago. States he drinks 6 pack beer twice a week but does not drink liquor- states last drank beer two days ago. Smokes 15 cigarettes a day. Doesn't do drugs. Asking if he has to stay in the hospital and when he will be released. States he is nervous and asking for some meds. Admission Exam Per Admitting Provider Physical Exam: General: Lying comfortably in bed, not in distress, on room air HEENT: EOMI, RANCHO, MMM, no nystagmus Chest: Clear breath sounds bilaterally, no wheezes or crackles CVS: Regular rate and rhythm, normal heart sounds, no murmur Abdomen: Soft, non tender, not distended, normal bowel sounds Neuro: Awake, alert, orientedx2, conversing well, non focal Extremities: No edema. No tremors appreciated. Principal Diagnosis Hyponatremia, alcohol abuse-no withdrawal symptoms, paranoia Discharge Exam Lying in bed comfortably Constitutional well developed and well nourished; not ill appearing Eyes PERRL, conjunctivae normal, anicteric sclerae ENMT external ear and nose normal, oropharynx normal Neck trachea midline, no thyromegaly Respiratory no respiratory distress Auscultation: lungs clear to auscultation bilaterally Cardiovascular Rate/Rhythm: regular rate and regular rhythm; not tachycardic Heart Sounds: normal S1 and normal S2; no murmur Extremities: no edema Gastrointestinal (Abdomen) Inspection/Auscultation: normal bowel sounds; abdomen not distended Percussion/Palpation: abdomen soft; abdomen nontender Lymphatic no cervical or axillary lymphadenopathy Discharge Data Allergies Allergy/AdvReac Type Severity Reaction Status Date / Time No Known Allergies Allergy Verified 07/29/22 18:20 Consultations 11/30/21 18:24 ED Decision to Admit Stat 11/30/21 19:20 Consult Psychiatry Routine Ordered Studies 11/30/21 15:37 CT head/brain wo con Stat Hospital Course (1) Hyponatremia: Na 128, now 135 this am, hypotonic hyponatremia likely related to tea and toast diet in setting of excessive alcohol use. Remains asymptomatic and Sodium level is 135 as of 12/04/2021 (2) Alcohol abuse: Last drink 1 day prior to admission tremors resolved, no overt alcohol withdrawal symptoms Continue gabapentin protocol taper Continue IV Ativan as needed Patient interested to transition to alcohol rehab No signs and/or symptoms of alcohol withdrawal Has been ambulating in the room without any difficulties He will be going home this afternoon (3) Transaminitis: Mildly elevated related to alcohol use. Improved. Secondary to use of alcohol (4) Paranoia: No signs of paranoia today Psychiatry on board, Dr. Samaniego: "admit for AMS/hyponatremia and worsening paranoia which appears to be longstanding (several years) yet worse in past 2 weeks. Likely suggests underlying cognitive disorder (alcohol induced dementia vs. microvascular, etc.). He is refusing rehab and is focussed on returning home. There is no evidence of eduin on exam or hx of schizophrenia. His condition does not fall under mental health procedures act since most likely dementia and/or substance induced but I share family concerns about his ability to care for self at home. Dr. Sampson to involve CM in discharge planning. He has no acute intent to harm anyone and family confirms no known weapons. 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 daily, increased to 10 mg p.o. daily As needed hydralazine monitor after alcohol withdrawal protocol, re-eval BP, may need lower dose Amlodipine on d/c (6) Tobacco abuse: Nicoderm patch. Smoking cessation advised. Plan Disposition Office of aging is involved He will be discharged home this afternoon with follow-up of with office of aging as an outpatient Total Time Total Time Spent Total Time Spent (In Minutes): 45 minutes Discharge Plan Discharge Items Patient Disposition: Home - Self-Care Reason For Visit: PARANOIA, HYPONATREMIA, ALC WITHDRAWL Discharge Diagnosis: Hyponatremia, alcohol abuse-no withdrawal symptoms, paranoia Condition on Discharge: Good Activity: Resume your previous activity Non-emergency contact: Primary Care Provider Call non-emergency contact if: you have any medication questions and your symptoms worsen Follow-up/Referrals: Davi Valencia MD [Outside Practitioners] - (Date & Time 12/10/2021 1:40 PM Provider Davi Valencia DO [address] ) Diet: Regular Addtl Attending Provider Instructions: Please take extra precautions to avoid fall Please have regular follow-up with your healthcare providers Do not drink anymore alcohol Pending Studies at Discharge: No Stand-Alone Forms: [facility], Smoking Cessation Medications and DC Order Prescriptions: New thiamine HCl (vitamin B1) 100 mg Tablet 100 mg PO QAM 30 Days Qty: 30 0RF amlodipine [Norvasc] 5 mg Tablet 10 mg PO DAILY 30 Days Qty: 60 0RF folic acid 1 mg Tablet 1 mg PO QAM 30 Days Qty: 30 0RF nicotine 14 mg/24 hr patch 24 hour 1 patch transdermal DAILY Qty: 28 0RF Discharge Orders: Discharge Order (Routine); Ordered 12/04/21 Ordered By: Aniyah Bernard Admission Data Admit Date/Time: 11/30/21 19:20 Attending Provider: Aniyah Bernard Admit Provider: Cayden Pruitt Primary Care Provider: PCP,NO Other Providers: Cayden Pruitt ; Camille Lorenzo ; Shanelle Samaniego ; Marion Chicas ; Bry Malik Other Interventions: Discharge Summary Assessment (RN) Last Done: 12/04/21 14:37
== END 2021-12-04 15:30 | disposition home or self-care (01) | DRG 641 ==
LOC: ED 15:26 → SUATTDRO 19:20 → 2N 19:20 → 2W 12-01 01:19

== ENCOUNTER 2022-03-03 12:55 | Observation (INO) ==
[2022-03-03] MEDS ORDERED: LORazepam 1 MG/1 ML SYR IV STA (13:41)
[2022-03-03] MEDS ORDERED: MULTI-VITAMIN INFUSION 10 ML, THIAMINE HCL 100 MG, FOLIC ACID 1 MG in SODIUM CHLORIDE 0... IV ONE (13:41)
[2022-03-03 13:51] LABS: Basophils # (auto) 0.04 K/uL (0-0.2); Basophils % (auto) 0.4 %; Eosinophils # (auto) 0.04 K/uL (0-0.50); Eosinophils % (auto) 0.4 %; Hemoglobin 15.1 g/dl (14.0-18.0); Immature Granulocytes # (auto) 0.04 K/uL (0.00-0.02); Immature Granulocytes % (auto) 0.4 %; Lymphocytes # (auto) 2.01 K/uL (1.2-3.4); Lymphocytes % (auto) 19.8 %; Mean Corpuscular Hemoglobin 32.4 pg (25.0-34.0); Mean Corpuscular Hgb Conc 35.1 g/dL (32.0-36.0); Mean Corpuscular Volume 92.3 fL (80.0-100.0); Mean Platelet Volume 9.7 fL (9.4-12.4); Monocytes # (auto) 0.78 K/uL (0.24-0.82); Monocytes % (auto) 7.7 %; Neutrophils # (auto) 7.22 K/uL (1.4-6.5); Neutrophils % (auto) 71.3 %; Platelet Count 323 K/uL (130-400); RDW Coefficient of Variation 11.9 % (11.5-14.5); Red Blood Count 4.66 M/uL (4.63-6.08); White Blood Count 10.13 K/ul (4.8-10.8)
[2022-03-03] MEDS ORDERED: LORazepam 1 MG TAB SL STA (13:54)
[2022-03-03 14:15] LABS: Acetaminophen < 3 ug/ml (10-30); Salicylate < 3.0 mg/dl (3.0-30)
[2022-03-03 14:16] LABS: Alanine Aminotransferase 28 U/L (7-52); Albumin Level 4.5 gm/dl (3.4-5.0); Alkaline Phosphatase 101 U/L (34-104); Anion Gap 11 (3-11); Aspartate Aminotransferase 41 U/L (13-39); Blood Urea Nitrogen 10 mg/dl (6-23); Calcium 10.7 mg/dl (8.5-10.1); Carbon Dioxide 25 mmol/L (21-32); Chloride 93 mmol/L (98-107); Est GFR (African American) 68.6 ml/min; Est GFR (Non-African American) 59.2 ml/min; Globulin 4.5 gm/dl (2.5-4.0); Glucose 98 mg/dl (70-99(Fasting)); Sodium 129 mmol/L (136-145)
[2022-03-03 14:16] LABS: Appearance Urine Clear (Clear); Bacteria Urine Automated Negative (Negative); Bilirubin Urine Negative (Negative); Blood Urine Negative (Negative); Cast Urine Automated 0 /lpf (0-5); Color Urine Yellow; Glucose Urine UA Negative (Negative); Ketones Urine Negative (Negative); Leukocyte Esterase Urine Negative (Negative); Nitrite Urine Negative (Negative); Protein Urine Trace (Negative); RBC Urine Automated 0-4 /hpf (0-4); Specific Gravity Urine 1.007 (1.000-1.030); Urobilinogen Urine Negative (Negative); pH Urine 6.5 (4.5-7.5)
[2022-03-03] MEDS ORDERED: SODIUM CHLORIDE 0.9% 1000ML 1,000 ML IV ONE (14:39)
--- NOTE | 2022-03-03 15:07 | CT Scan Report ---
CT OF THE HEAD WITHOUT CONTRAST CLINICAL HISTORY: Altered mental status. COMPARISON STUDY: Head CT November 30, 2021. CT DOSE: 614.27 mGy.cm TECHNIQUE: Helical axial images of the head were obtained without IV contrast. Automated exposure con trol was utilized for the study. A dose lowering technique was utilized adhering to the principles o f ALARA. FINDINGS: This study is mildly compromised by motion artifact. No acute intracranial hemorrhage, midl ine shift or mass effect is present. The ventricular system is unremarkable. The basal cisterns are p atent. No extra-axial collections are present. There are no findings to suggest acute dural sinus thr ombosis or acute territorial infarct. No significant calvarial abnormalities are present. Visualized portions of the sinuses and mastoid air cells are clear. IMPRESSION: No acute intracranial findings. No change in appearance of the brain. ACT 112: Negative or not required by law. Electronically signed by: Ranjeet Walker M.D. 03/03/2022 3:06 PM
[2022-03-03 15:09] LABS: Amphetamines+Metham, Urine Neg (Neg); Barbiturates, Urine Neg (Neg); Benzodiazepine, Urine Neg (Neg); Cocaine, Urine Neg (Neg); MDMA (Ecstacy), Urine Neg (Neg); Methadone, Urine Neg (Neg); Opiate, Urine Neg (Neg); Phencyclidine, Urine Neg (Neg)
--- NOTE | 2022-03-03 19:12 | Emergency Department Note ---
Impression & Plan Hyponatremia, Unable to care for self, [place] ED Provider Note CHIEF COMPLAINT: Brought in by police, needs to be "checked out" HISTORY OF PRESENT ILLNESS: This 66-year-old male patient presents to the emergency department with no specific concerns, patient states he patient states he was with his girlfriend last night, Tiki then walked out on him. Patient is a bit tangential and gives a poor history but also states that he was not allowed to touch Tiki. He also states he gave her 100s of dollars at a time. He does not feel that she treated him very well. After she left he began to walk towards the hospital. He states the police picked him up along the side of the road. He states he was hitchhiking which he knows is illegal however usually they let him go. Patient states that he does have a remote history of alcohol abuse, his last drink was approximately 9 months ago. He denies being intoxicated at this time. He denies any substance abuse. He denies any suicidal or homicidal ideation. Patient also mentions that his brother of HIV/AIDS and that his family "was a bunch of bigots." This happened many years ago. Patient also states he has previously been "arrested" for threatening issues at the skilled nursing. He mentions that it would be a felony to carry a gun into a skilled nursing. Patient is currently denying any thoughts of self-harm or harming others, he denies any weapons. He states he has been sleeping but does not think he has been eating very well lately. He does present a bit disheveled and paranoid. REVIEW OF SYSTEMS: A review of systems was performed with positives and pertinent negatives listed in the history of present illness. 10 systems were reviewed and are otherwise negative. ALLERGIES: see below MEDICATIONS: see below PMH: see below SOCIAL HISTORY: see below DDx: Mood disorder, infection, hypoglycemia, electrolyte abnormalities, cardiac sources, intracerebral event, toxicologic, trauma, neurologic, as well as other pathologies. PHYSICAL EXAM: Vital signs reviewed. Noted to be hypertensive and tachycardic. General: Chronically ill appearing, disheveled 66 yo male , in no significant distress. Sitting up in the chair at the bedside, calm and cooperative. HEENT: No scleral icterus, PERRLA, neck supple. Poor dentition. Cardiovascular: Regular rate and rhythm, no extra sounds. Pulmonary: Clear to auscultation bilaterally, normal work of breathing. Abdomen: Soft, nontender, nondistended, positive bowel sounds. Musculoskeletal: Atraumatic, no peripheral edema. Neurologic: Patient awake alert and states it is 2020. Accurate with age and birthdate. Aware of current location. Speech is clear but mumbles. Follows commands. Staggering gait Psych: Negative suicidal or homicidal ideation. Tangential ans scattered. Skin: Warm, dry, no rash EMERGENCY DEPARTMENT COURSE/MDM: This patient was evaluated and appeared to be in no significant distress. He was initially tachycardic and hypertensive and given 2 mg of Ativan to assist with sleep. The patient was calm and cooperative but difficult to follow his pattern of speech. Patient was medically cleared, head CT is negative, laboratory work is fairly reassuring with the exception of a mildly hyponatremic sodium at 129. He was given 1 L of IV normal saline solution. He did eat a meal tray. Patient slept. U tox and alcohol screens are negative. Patient's PCP records were obtained through [facility]. It appears the patient had a very similar visit to the PCP at the beginning of February, he is at his baseline. The office of aging had been contacted and apparently they are following the patient's case. He has refused assistance from their office in placement. The patient has no contact number for his friend Tiki and there is no contact information in our EMR or in [employer]. At this time the window caser has a 302 petitioning statement based on inability to care for self as the patient was found walking alongside the road by police and will pursue the office of aging. As the patient lives at home alone and does not seem to have any family contacts, it does not seem that there is a safe disposition at this time. Pt was referred to the hospitalist for admission and further management. RADIOLOGY: see below DISPOSITION:admission Past Med/Surg History Medical History Alcohol abuse Alcohol use Hypertension Hyponatremia Paranoia Tobacco abuse Transaminitis Surgical History No pertinent past surgical history Social History Smoking Status: Smoker, status unknown Tobacco Type: Cigarettes Hx Alcohol Use: Yes Alcohol type: beer Hx Substance Use: No Preferred Language: Danish Communication Ability: Effective Unemployment Benefits Claims Taker Required: No Beliefs That Will Affect Care: None marital status: Single Current Living Situation: Alone Feels Safe at Home: Yes Assistive Devices: None Allergies Allergies Allergy/AdvReac Type Severity Reaction Status Date / Time No Known Allergies Allergy Verified 11/30/21 18:20 Home Meds Home Medications Medication Instructions Recorded Confirmed amlodipine 5 mg-benazepril 10 mg 10 cap PO DAILY 03/03/22 03/03/22 capsule (Lotrel) buspirone 10 mg tablet 10 mg PO DAILY 03/03/22 03/03/22 donepezil 5 mg tablet (Aricept) 5 mg PO DAILY 03/03/22 03/03/22 folic acid 1 mg tablet 1 mg PO DAILY 03/03/22 03/03/22 quetiapine 50 mg tablet (Seroquel) 50 mg PO BID 03/03/22 03/03/22 thiamine HCl (vitamin B1) 100 mg 100 mg PO DAILY 03/03/22 03/03/22 tablet (Vitamin B-1) Results & Data (ED) Vital Signs Vital Signs - 24 hr 03/03/22 13:37 03/03/22 13:35 03/03/22 19:00 Temperature 37.2 C Temperature Source Oral Pulse Rate [Left Finger] 105 H 109 H Pulse Rhythm [Left Finger] Regular Pulse Strength [Left Finger] Normal Respiratory Rate 16 17 Respiratory Effort / Characteristics Non-Labored Respiratory Depth Normal Respiratory Pattern Regular Blood Pressure [Right Arm] 155/100 H 136/72 Blood Pressure Mean [Right Arm] 118 93 Blood Pressure Position [Right Arm] Sitting Pulse Oximetry 96 94 Oxygen Delivery Method Room Air Room Air Sepsis Recent Fever Within 48 Hours No Sepsis New/Unexplained Change in Mental Status Yes Sepsis Action Taken by Nursing No Action Required Home Medications Current Medication List: was personally reviewed by me Laboratory Data Attestation: I reviewed the patient's lab results. Result diagrams: 03/04/22 08:35 03/04/22 08:35 Lab Results 03/03/22 03/03/22 03/03/22 Range/Units 13:09 13:09 13:32 WBC 10.13 (4.8-10.8) K/ul RBC 4.66 (4.63-6.08) M/uL Hgb 15.1 (14.0-18.0) g/dl Hct 43.0 (40.1-51.0) % MCV 92.3 (80.0-100.0) fL MCH 32.4 (25.0-34.0) pg MCHC 35.1 (32.0-36.0) g/dL RDW Std Deviation 40.0 (36.4-46.3) fL RDW Coeff of Arielle 11.9 (11.5-14.5) % Plt Count 323 (130-400) K/uL MPV 9.7 (9.4-12.4) fL Immature Gran % (Auto) 0.4 % Neut % (Auto) 71.3 % Lymph % (Auto) 19.8 % Robeson % (Auto) 7.7 % Eos % (Auto) 0.4 % Baso % (Auto) 0.4 % Neut # (Auto) 7.22 H (1.4-6.5) K/uL Lymph # (Auto) 2.01 (1.2-3.4) K/uL Robeson # (Auto) 0.78 (0.24-0.82) K/uL Eos # (Auto) 0.04 (0-0.50) K/uL Baso # (Auto) 0.04 (0-0.2) K/uL Immature Gran # (Auto) 0.04 H (0.00-0.02) K/uL Sodium (136-145) mmol/L Potassium (3.5-5.1) mmol/L Chloride (98-107) mmol/L Carbon Dioxide (21-32) mmol/L Anion Gap (3-11) BUN (6-23) mg/dl Creatinine (0.6-1.4) mg/dl Est Cr Clr Drug Dosing Est GFR ( Amer) ml/min Est GFR (Non-Af Amer) ml/min BUN/Creatinine Ratio (10-20) Glucose (70-99(Fasting)) mg/dl Calcium (8.5-10.1) mg/dl Total Bilirubin (0.2-1.0) mg/dl AST (13-39) U/L ALT (7-52) U/L Alkaline Phosphatase (34-104) U/L Total Protein (6.0-8.3) gm/dl Albumin (3.4-5.0) gm/dl Globulin (2.5-4.0) gm/dl Albumin/Globulin Ratio (0.9-2) TSH (0.300-4.500) uIu/ml Urine Color Yellow Urine Appearance Clear (Clear) Urine pH 6.5 (4.5-7.5) Ur Specific [place] 1.007 (1.000-1.030) Urine Protein Trace H (Negative) Urine Glucose (UA) Negative (Negative) Urine Ketones Negative (Negative) Urine Blood Negative (Negative) Urine Nitrite Negative (Negative) Urine Bilirubin Negative (Negative) Urine Urobilinogen Negative (Negative) Ur Leukocyte Esterase Negative (Negative) Urine WBC (Auto) 1-5 (0-5) /hpf Urine RBC (Auto) 0-4 (0-4) /hpf U Hyaline Cast (Auto) 0 (0-5) /lpf U Epithel Cells (Auto) 5-10 H (0-5) /lpf Urine Bacteria (Auto) Negative (Negative) Salicylates (3.0-30) mg/dl Urine Opiates Screen Neg (Neg) Ur Methadone, Qual Neg (Neg) Acetaminophen (10-30) ug/ml Urine Barbiturates Neg (Neg) Ur Phencyclidine (PCP) Neg (Neg) U Amphetamin/Meth Scrn Neg (Neg) MDMA (Ecstasy) Screen Neg (Neg) U Benzodiazepines Scrn Neg (Neg) Ur Cocaine Metabolite Neg (Neg) U Marijuana (THC) Screen Neg (Neg) Ethyl Alcohol mg/dL (<10.0) mg/dl SARS-CoV-2, RNA, NAAT (NEGATIVE) 03/03/22 03/03/22 03/03/22 Range/Units 13:32 13:32 13:32 WBC (4.8-10.8) K/ul RBC (4.63-6.08) M/uL Hgb (14.0-18.0) g/dl Hct (40.1-51.0) % MCV (80.0-100.0) fL MCH (25.0-34.0) pg MCHC (32.0-36.0) g/dL RDW Std Deviation (36.4-46.3) fL RDW Coeff of Arielle (11.5-14.5) % Plt Count (130-400) K/uL MPV (9.4-12.4) fL Immature Gran % (Auto) % Neut % (Auto) % Lymph % (Auto) % Robeson % (Auto) % Eos % (Auto) % Baso % (Auto) % Neut # (Auto) (1.4-6.5) K/uL Lymph # (Auto) (1.2-3.4) K/uL Robeson # (Auto) (0.24-0.82) K/uL Eos # (Auto) (0-0.50) K/uL Baso # (Auto) (0-0.2) K/uL Immature Gran # (Auto) (0.00-0.02) K/uL Sodium 129 L (136-145) mmol/L Potassium 5.0 (3.5-5.1) mmol/L Chloride 93 L (98-107) mmol/L Carbon Dioxide 25 (21-32) mmol/L Anion Gap 11 (3-11) BUN 10 (6-23) mg/dl Creatinine 1.25 (0.6-1.4) mg/dl Est Cr Clr Drug Dosing Not Reportable Est GFR ( Amer) 68.6 ml/min Est GFR (Non-Af Amer) 59.2 ml/min BUN/Creatinine Ratio 8.0 L (10-20) Glucose 98 (70-99(Fasting)) mg/dl Calcium 10.7 H (8.5-10.1) mg/dl Total Bilirubin 1.0 (0.2-1.0) mg/dl AST 41 H (13-39) U/L ALT 28 (7-52) U/L Alkaline Phosphatase 101 (34-104) U/L Total Protein 9.0 H (6.0-8.3) gm/dl Albumin 4.5 (3.4-5.0) gm/dl Globulin 4.5 H (2.5-4.0) gm/dl Albumin/Globulin Ratio 1.0 (0.9-2) TSH 1.377 (0.300-4.500) uIu/ml Urine Color Urine Appearance (Clear) Urine pH (4.5-7.5) Ur Specific [place] (1.000-1.030) Urine Protein (Negative) Urine Glucose (UA) (Negative) Urine Ketones (Negative) Urine Blood (Negative) Urine Nitrite (Negative) Urine Bilirubin (Negative) Urine Urobilinogen (Negative) Ur Leukocyte Esterase (Negative) Urine WBC (Auto) (0-5) /hpf Urine RBC (Auto) (0-4) /hpf U Hyaline Cast (Auto) (0-5) /lpf U Epithel Cells (Auto) (0-5) /lpf Urine Bacteria (Auto) (Negative) Salicylates < 3.0 L (3.0-30) mg/dl Urine Opiates Screen (Neg) Ur Methadone, Qual (Neg) Acetaminophen < 3 L (10-30) ug/ml Urine Barbiturates (Neg) Ur Phencyclidine (PCP) (Neg) U Amphetamin/Meth Scrn (Neg) MDMA (Ecstasy) Screen (Neg) U Benzodiazepines Scrn (Neg) Ur Cocaine Metabolite (Neg) U Marijuana (THC) Screen (Neg) Ethyl Alcohol mg/dL (<10.0) mg/dl SARS-CoV-2, RNA, NAAT (NEGATIVE) 03/03/22 03/03/22 Range/Units 13:32 13:54 WBC (4.8-10.8) K/ul RBC (4.63-6.08) M/uL Hgb (14.0-18.0) g/dl Hct (40.1-51.0) % MCV (80.0-100.0) fL MCH (25.0-34.0) pg MCHC (32.0-36.0) g/dL RDW Std Deviation (36.4-46.3) fL RDW Coeff of Arielle (11.5-14.5) % Plt Count (130-400) K/uL MPV (9.4-12.4) fL Immature Gran % (Auto) % Neut % (Auto) % Lymph % (Auto) % Robeson % (Auto) % Eos % (Auto) % Baso % (Auto) % Neut # (Auto) (1.4-6.5) K/uL Lymph # (Auto) (1.2-3.4) K/uL [place] # (Auto) (0.24-0.82) K/uL Eos # (Auto) (0-0.50) K/uL Baso # (Auto) (0-0.2) K/uL Immature Gran # (Auto) (0.00-0.02) K/uL Sodium (136-145) mmol/L Potassium (3.5-5.1) mmol/L Chloride (98-107) mmol/L Carbon Dioxide (21-32) mmol/L Anion Gap (3-11) BUN (6-23) mg/dl Creatinine (0.6-1.4) mg/dl Est Cr Clr Drug Dosing Est GFR ( Amer) ml/min Est GFR (Non-Af Amer) ml/min BUN/Creatinine Ratio (10-20) Glucose (70-99(Fasting)) mg/dl Calcium (8.5-10.1) mg/dl Total Bilirubin (0.2-1.0) mg/dl AST (13-39) U/L ALT (7-52) U/L Alkaline Phosphatase (34-104) U/L Total Protein (6.0-8.3) gm/dl Albumin (3.4-5.0) gm/dl Globulin (2.5-4.0) gm/dl Albumin/Globulin Ratio (0.9-2) TSH (0.300-4.500) uIu/ml Urine Color Urine Appearance (Clear) Urine pH (4.5-7.5) Ur Specific [place] (1.000-1.030) Urine Protein (Negative) Urine Glucose (UA) (Negative) Urine Ketones (Negative) Urine Blood (Negative) Urine Nitrite (Negative) Urine Bilirubin (Negative) Urine Urobilinogen (Negative) Ur Leukocyte Esterase (Negative) Urine WBC (Auto) (0-5) /hpf Urine RBC (Auto) (0-4) /hpf U Hyaline Cast (Auto) (0-5) /lpf U Epithel Cells (Auto) (0-5) /lpf Urine Bacteria (Auto) (Negative) Salicylates (3.0-30) mg/dl Urine Opiates Screen (Neg) Ur Methadone, Qual (Neg) Acetaminophen (10-30) ug/ml Urine Barbiturates (Neg) Ur Phencyclidine (PCP) (Neg) U Amphetamin/Meth Scrn (Neg) MDMA (Ecstasy) Screen (Neg) U Benzodiazepines Scrn (Neg) Ur Cocaine Metabolite (Neg) U Marijuana (THC) Screen (Neg) Ethyl Alcohol mg/dL < 10.0 (<10.0) mg/dl SARS-CoV-2, RNA, NAAT NEGATIVE (NEGATIVE) Administered Medications Amlodipine Besylate (Amlodipine Besylate 5 Mg Tab) 5 mg PO DAILY JOHN Stop: 04/03/22 08:59 Last Admin: 03/04/22 08:32 Dose: 5 mg Documented By: AYDEN Buspirone HCl (Buspirone 5 Mg Tab) 10 mg PO DAILY JOHN Stop: 04/03/22 08:59 Last Admin: 03/04/22 08:33 Dose: 10 mg Documented By: AYDEN Donepezil HCl (Donepezil Hcl 5 Mg Tab) 5 mg PO DAILY JOHN Stop: 04/03/22 08:59 Last Admin: 03/04/22 08:33 Dose: 5 mg Documented By: AYDEN Enalapril Maleate (Enalapril Maleate 10 Mg Tab) 10 mg PO DAILY JOHN Stop: 04/03/22 08:59 Last Admin: 03/04/22 08:33 Dose: 10 mg Documented By: AYDEN Enoxaparin Sodium (Enoxaparin Inj 40 Mg/0.4 Ml Syr) 40 mg SQ Q24H JOHN Stop: 04/03/22 08:59 Last Admin: 03/04/22 08:46 Dose: 40 mg Documented By: AYDEN Folic Acid (Folic Acid 1 Mg Tab) 1 mg PO DAILY JOHN Stop: 04/03/22 08:59 Last Admin: 03/04/22 08:33 Dose: 1 mg Documented By: AYDEN Lorazepam (Lorazepam 1 Mg Tab) 1 mg PO Q4H PRN PRN Reason: Anxiety/Agitation Stop: 04/03/22 02:22 Last Admin: 03/04/22 20:31 Dose: 1 mg Documented By: Admin: 03/04/22 07:36 Dose: 1 mg Documented By: AYDEN Quetiapine Fumarate (Quetiapine Fumarate 25 Mg Tablet) 50 mg PO BID JOHN Stop: 04/03/22 08:59 Last Admin: 03/04/22 20:31 Dose: 50 mg Documented By: Admin: 03/04/22 08:33 Dose: 50 mg Documented By: AYDEN Thiamine HCl (Thiamine Hcl 100 Mg Tab) 100 mg PO DAILY [facility] Stop: 04/03/22 08:59 Last Admin: 03/04/22 08:33 Dose: 100 mg Documented By: AYDEN Discontinued Medications Gabapentin (Gabapentin 600 Mg Tab) 1,200 mg PO NOW ONE Stop: 03/04/22 03:52 Last Admin: 03/04/22 08:31 Dose: Not Given Documented By: AYDEN Gabapentin (Gabapentin 600 Mg Tab) 600 mg PO Q6H JOHN Stop: 03/04/22 18:01 Last Admin: 03/04/22 17:57 Dose: 600 mg Documented By: Admin: 03/04/22 12:15 Dose: 600 mg Documented By: [id number] Multivitamins 10 ml/ Thiamine HCl 100 mg/ Folic Acid 1 mg/Sodium Chloride 1,011.2 mls @ 1,011.2 mls/hr IV .Q1H ONE Stop: 03/03/22 14:40 Last Admin: 03/03/22 15:21 Dose: Not Given Documented By: AM Sodium Chloride (Nss 1000ml) 1,000 mls @ 999 mls/hr IV .Q1H1M ONE Stop: 03/03/22 15:39 Last Infusion: 03/03/22 16:40 Dose: 0 mls/hr Documented By: Admin: 03/03/22 15:33 Dose: 999 mls/hr Documented By: AM Lorazepam (Lorazepam 2 Mg/2 Ml Syr) 2 mg IV NOW STA; Protocol Stop: 03/03/22 13:42 Last Admin: 03/03/22 15:21 Dose: Not Given Documented By: JULIETTE Lorazepam (Lorazepam 1 Mg Tab) 2 mg SL NOW STA Stop: 03/03/22 13:55 Last Admin: 03/03/22 14:50 Dose: 2 mg Documented By: QUAN Lorazepam (Lorazepam 2 Mg/2 Ml Syr) 1 mg IV NOW STA; Protocol Stop: 03/04/22 01:56 Last Admin: 03/04/22 02:11 Dose: 1 mg Documented By: SUNIL Lorazepam (Lorazepam 2 Mg/2 Ml Syr) Confirm Administered Dose 2 mg .ROUTE .STK- MED ONE Stop: 03/04/22 02:01 Last Admin: 03/04/22 02:02 Dose: Not Given Documented By: SUNIL Miscellaneous (Patient's Height &/Or Weight Needed) 1 each N/A Q2H JOHN Stop: 03/04/22 09:00 Last Admin: 03/04/22 09:03 Dose: 1 each Documented By: Admin: 03/04/22 04:47 Dose: Not Given Documented By: SUNIL Imaging Data Radiologist's Impression: Head CT 03/03/22 14:39 CT OF THE HEAD WITHOUT CONTRAST CLINICAL HISTORY: Altered mental status. COMPARISON STUDY: Head CT November 30, 2021. CT DOSE: 614.27 mGy.cm TECHNIQUE: Helical axial images of the head were obtained without IV contrast. Automated exposure control was utilized for the study. A dose lowering technique was utilized adhering to the principles of ALARA. FINDINGS: This study is mildly compromised by motion artifact. No acute intracranial hemorrhage, midline shift or mass effect is present. The ventricular system is unremarkable. The basal cisterns are patent. No extra- axial collections are present. There are no findings to suggest acute dural sinus thrombosis or acute territorial infarct. No significant calvarial abnormalities are present. Visualized portions of the sinuses and mastoid air cells are clear. IMPRESSION: No acute intracranial findings. No change in appearance of the brain. ACT 112: Negative or not required by law. Electronically signed by: Ranjeet Walker M.D. 03/03/2022 3:06 PM Blood Pressure Blood Pressure Findings: Elevated blood pressure Blood Pressure Disposition: elevated BP felt to be situational Discharge Plan Visit Data Chief Complaint: Mental Health Evaluation Stated Complaint: [facility] ED Provider: Mabel Ray Discharge Problem: Hyponatremia, Unable to care for self, [place] Patient Disposition: Admitted As Inpatient Discharge Instructions Interventions: ED Discharge Assessment Last Done: 03/04/22 02:24
--- NOTE | 2022-03-03 20:36 | Emergency Department Note ---
ED Visit Note I assumed care at the change of shift. Patient had a 302 petition against him. He had been found hitchhiking. There was concern for proper self-care. Psychiatric assessment was pending. The patient was found to be hyponatremic. Given his findings, given his situation, a medical admission was felt warranted. The on-call hospitalist was consulted by Dr. Rya. .
[2022-03-04] MEDS ORDERED: LORazepam 1 MG/1 ML SYR IV STA (01:55)
[2022-03-04] MEDS ORDERED: LORazepam 1 MG/1 ML SYR ONE (02:00)
[2022-03-04] MEDS ORDERED: ONDANSETRON INJ 2 MG/ML 2 ML VIAL IV PRN (02:23)
[2022-03-04] MEDS ORDERED: POLYETHYLENE (MIRALAX) 17 GM PACK PO PRN (02:23)
[2022-03-04] MEDS ORDERED: ACETAMINOPHEN 325 MG TAB PO PRN (02:23)
[2022-03-04] MEDS ORDERED: NITROGLYCERIN SL 0.4 MG/TAB TAB SL PRN (02:23)
--- NOTE | 2022-03-04 02:35 | History and Physical Report ---
DATE OF ADMISSION: 03/03/2022. CHIEF COMPLAINT: Mental health evaluation, hyponatremia. HISTORY OF PRESENT ILLNESS: This is a 66-year-old male with history of alcohol abuse, ongoing tobacco abuse, past medical history of paranoia, hypertension, chronic hepatitis C, diverticulosis of colon, history of BPH, psoriatic arthritis as per records, currently who lives alone at home, but he was brought in by risk lead because he was hitchhiking. Patient says his friend, Tiki left him and he was trying to walk to the hospital. Furniture Upholsterer found him on the road and brought him to the hospital. In the ER, he was given Ativan, somewhat drowsy, but able to answer. He knows his name, knows that he is in the hospital, knows his date of , knows today's date. He is still smoking, he says smokes 3 packs in a week. He states he used to drink alcohol, but denies any drinking lately. He states he has some cough. Denies any fever, no chest pain, no nausea, no abdominal pain, no headaches. Normal bowel and bladder movements. He is ambulating okay in the ER, but is very disheveled. 302 petition has been done as he was found hitchhiking and concerned for proper self care. He also saw the PCP recently on 02/06/2022 with a diagnosis of cognitive impairment. At that time, Tiki, his friend accompanied him to the PCP and for some short-term memory problems and not able to cook and clean for himself .As per the PCP notes, his friend, Tiki does believe he is able to dress, bathe himself. He used to have a woman come to assist him in the past, but she is no longer coming and cannot be contacted as per PCP notes.Sometimes he has inappropriate outbursts. Seems Tiki gives food for him. He is unable to go shop for himself and she lives in [place] .As per PCP notes his friend Tiki was concerned whether he is taking his medications right or taking at all .Per PCP notes, patients friend does not believe he is still drinking, but the patient today states she left him, and so he started to walk to the hospital. Apart from the above, could not get much history from the patient. ALLERGIES: No known drug allergies. PAST MEDICAL HISTORY: As mentioned above. PAST SURGICAL HISTORY: Colonoscopy. MEDICATIONS: As per the Epic, the patient is on amlodipine, benazepril 5/10 mg daily, Aricept 5 mg p.o. daily, Seroquel 50 mg p.o. b.i.d., folic acid 1 mg p.o. daily, thiamine 100 mg p.o. daily, aspirin 81 mg p.o. daily. FAMILY HISTORY: Significant for mother has heart disorder, father has aortic aneurysm. SOCIAL HISTORY: Currently living alone. He smokes half pack a day, currently no drinking. No drug use. REVIEW OF SYSTEMS: As per HPI. Could not get complete review of system, the patient has mental health issues and also received Ativan. PHYSICAL EXAMINATION: GENERAL: The patient is disabled, not in acute distress. VITAL SIGNS: Temperature 37.2, pulse 109, respiratory rate 17, blood pressure 136/72, oxygen 94% on room air. HEENT: Pupils equal, round and reactive to light. Oral mucosa moist. NECK: No JVD. No neck masses. CARDIOVASCULAR: S1 and S2 heard. Regular rate and rhythm. No murmur, no gallop. RESPIRATORY SYSTEM: Normal AP diameter. No accessory muscle use. No wheezing, no crackles. ABDOMEN: Soft, bowel sounds present, nontender, no distention. CENTRAL NERVOUS SYSTEM: Alert and oriented. Speech is clear. No facial droop. Obeys simple commands. Ambulating okay in the ER. EXTREMITIES: No edema, no erythema. LABORATORY DATA: WBC 10.1, hemoglobin 15.1, hematocrit 43, platelets 323. Sodium 129, potassium 5, chloride 93, bicarbonate 25, BUN 10, creatinine 1.2, serum glucose 98, calcium 10.7, total bilirubin 1, AST 41, ALT 28, alkaline phosphatase 101. TSH is 1.3. Urinalysis negative. Urine drug screen negative. Salicylate level less than 3, acetaminophen less than 3, ethyl alcohol less than 10. SARS-CoV-2 rapid test negative. IMAGING DATA: CT of the head, no acute findings. ASSESSMENT AND PLAN: This is a 66-year-old male with history of some ongoing mental health issues and some paranoia, not able to take care of himself, history of chronic alcoholism, seems to be not drinking lately, history of chronic hepatitis, hypertension, benign prostatic hyperplasia, ongoing tobacco abuse was brought in by risk lead as he was found hitchhiking. 1. Hitchhiking on the road and brought in by police. He was here in December of this year brought in by family, for paranoia at that time. Seems to have a longstanding mental health history. When he saw his PCP recently, office of agency was contacted as the patient declines any help, they were not able to do anything. Office of agency again contacted by ER and we will keep him in the hospital as the patient is not safe to go home. Social service to help with discharge planning. Monitor for any mental health issues. We will consult psychiatry. Continue his home medication of Seroquel, Aricept and buspirone. 2. Alcoholism. Currently seems not drinking. We will continue his home folic acid and thiamine, and place him on IV Ativan p.r.n.Later seems agitated. Started on gabapentin protocol with ativan prn. Received banana bag in er. Close monitor. 3. Hyponatremia, sodium 129, last admission it was borderline low at 129. Received 1 liter of fluid in the ER. Probably from poor intake vs siadh.We will follow the repeat labs in the a.m. will order serum and urine osmolality and urine sodium levels. 4. Ongoing tobacco abuse. 5. Deep venous thrombosis prophylaxis: Lovenox for now. DISPOSITION: Closely monitor in the med tele. Social service to help with discharge planning. Level 1 full code. Job ID: [id number] [facility]
[2022-03-04] MEDS ORDERED: LORazepam 1 MG in SYRINGE 0 ML IV PRN (03:51)
[2022-03-04] MEDS ORDERED: Ativan IV Alcohol Withdrawal--Active Protocol IV PRN (03:51)
[2022-03-04] MEDS ORDERED: GABAPENTIN 600 MG TAB PO ONE (03:51)
[2022-03-04] MEDS ORDERED: LORazepam 3 MG in SYRINGE 0 ML IV PRN (03:51)
[2022-03-04] MEDS ORDERED: LORazepam 2 MG in SYRINGE 0 ML IV PRN (03:51)
[2022-03-04] MEDS ORDERED: GABAPENTIN 1200MG ALCOHOL WITHDRAWAL LOAD PO STA (03:51)
[2022-03-04] MEDS: Patient's HEIGHT &/or WEIGHT Needed SCH ×2 (04:47→09:03)
[2022-03-04] MEDS: LORazepam 1 MG TAB PO PRN ×2 (07:36→20:31)
[2022-03-04] MEDS: amLODIPine BESYLATE 5 MG TAB PO SCH (08:32)
[2022-03-04] MEDS: ENALAPRIL MALEATE 10 MG TAB PO SCH (08:33)
[2022-03-04] MEDS: FOLIC ACID 1 MG TAB PO SCH (08:33)
[2022-03-04] MEDS: QUEtiapine FUMARATE 25 MG TABLET PO SCH ×2 (08:33→20:31)
[2022-03-04] MEDS: DONEPEZIL HCL 5 MG TAB PO SCH (08:33)
[2022-03-04] MEDS: busPIRone 5 MG TAB PO SCH (08:33)
[2022-03-04] MEDS: THIAMINE HCL 100 MG TAB PO SCH (08:33)
[2022-03-04] MEDS ORDERED: ENOXAPARIN INJ 40 MG/0.4 ML SYR SQ SCH (09:00)
[2022-03-04 09:04] LABS: Basophils # (auto) 0.04 K/uL (0-0.2); Basophils % (auto) 0.8 %; Eosinophils # (auto) 0.05 K/uL (0-0.50); Hematocrit (blood only) 38.9 % (40.1-51.0); Hemoglobin 13.2 g/dl (14.0-18.0); Immature Granulocytes # (auto) 0.01 K/uL (0.00-0.02); Immature Granulocytes % (auto) 0.2 %; Lymphocytes % (auto) 23.2 %; Mean Corpuscular Hemoglobin 31.9 pg (25.0-34.0); Mean Corpuscular Hgb Conc 33.9 g/dL (32.0-36.0); Mean Platelet Volume 9.7 fL (9.4-12.4); Monocytes # (auto) 0.53 K/uL (0.24-0.82); Monocytes % (auto) 10.2 %; Neutrophils # (auto) 3.35 K/uL (1.4-6.5); Neutrophils % (auto) 64.6 %; Platelet Count 266 K/uL (130-400); RDW Standard Deviation 41.8 fL (36.4-46.3); Red Blood Count 4.14 M/uL (4.63-6.08); White Blood Count 5.18 K/ul (4.8-10.8)
[2022-03-04 09:32] LABS: Alanine Aminotransferase 25 U/L (7-52); Albumin Level 3.7 gm/dl (3.4-5.0); Alkaline Phosphatase 77 U/L (34-104); Anion Gap 8 (3-11); Aspartate Aminotransferase 36 U/L (13-39); BUN Creatinine Ratio 13.8 (10-20); Bilirubin Direct 0.2 mg/dl (0-0.2); Bilirubin,Total 0.5 mg/dl (0.2-1.0); Blood Urea Nitrogen 18 mg/dl (6-23); Calcium 9.1 mg/dl (8.5-10.1); Carbon Dioxide 25 mmol/L (21-32); Chloride 103 mmol/L (98-107); Est GFR (African American) 65.4 ml/min; Est GFR (Non-African American) 56.5 ml/min; Glucose 125 mg/dl (70-99(Fasting)); Magnesium 1.9 mg/dl (1.7-2.4); Potassium 4.3 mmol/L (3.5-5.1); Sodium 136 mmol/L (136-145); Total Protein 7.2 gm/dl (6.0-8.3)
--- NOTE | 2022-03-04 12:04 | Psychiatric Consultation ---
Date of Consultation March 04, 2022 Impression / Recommendations Impression 66 yo man with history of alcohol use, cognitive impairment on Aricept and worsening paranoia admitted for hyponatremia and concern for failure of self- care. Diagnostically seems he had delirium yesterday from hyponatremia which seems to have largely resolved today. 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 He does not meet criteria for 302 commitment as no underlying primary psychiatric diagnosis and cannot be commited for cognitive impairment or TBI sequelae and no evidence for major mood symptoms, psychosis nor eduin and denies SI and HI. Certainly has made some odd statements to correction recently and continues to have paranoia toward his sister but no access to guns and no evidence of recent aggression nor agitation. Per collateral from niece, confirmed that he has no access to guns. Acute risk of harm to others is low. Acute risk of harm to self is low. Given improvement in sodium agree with continuing seroquel 50mg BID, dose could be titrated if desired to see if this lessens paranoia but typically antipsychotics are not very effective for treating paranoia associated with post-TBI and cognitive impairment. In terms of decision making capacity regarding leavng AMA, this is better left to hospitalist to determine regarding medical risks of hyponatremia monitoring/any lingering concerns for delirium but from psych standpoint he can speak to why he was treated here, option of ongoing monitoring versus going home, desire to return home and can speak to some ways he can care for himself but unclear if he has the means or understands risks of not being able to get food. Defer to hospitalist and case management to determine if he has a safe place to return to with enough in-home or family-based supports to ensure adequate nutrition, ability to get to medical appointments, have groceries delivered. Would recommend he not drive before further evaluation for safety to drive given cognitive impairment. (1) Altered mental status: (2) Cognitive impairment: (3) Hyponatremia: (4) Paranoia: (5) Falls frequently: Plan -Does not meet 302 criteria -For now do not feel he has decision making capacity to leave AMA as unclear what supports he has at home and unclear what medical risks would be if he left today vs ongoing monitoring so defer to hospitalist regarding this -Recommend case management involvement to determine best disposition option: home with supports vs family placement options vs personal fdc -Agree with Aricept and Seroquel 50mg BID (if concern this is contributing to hyponatremia could decrease to 50mg qhs; in future if Na+ remains stable could c onsider titration to 50mg qAM & 100mg qhs to see if this helps further with paranoia-would avoid doses above 200mg per day due to history of falls/hyponatremia/cognitive impairment/hx delirium) -Discussed with Dr. Gaitan Risk Factors Assessment Do You Have Access To A Gun?: No Psych History Identifying Data 66 yo man with history of paranoia, unspecified cognitive disorder-suspected secondary to alcohol use versus vascular dementia admitted medically for hyponatremia. Psychiatry consulted for recommendations due to concerns for failure to care for self and 302 petition completed by ED psych case planner. Chief Complaint "Want a cookie?". History of Present Illness Jame was previously seen by the psychiatry consult service in November 2021 for a similar presentation. He presents after being found walking along the road by police and found to have confusion and disorganization with concern for lack of ability to care for his needs. He was found to have hyponatremia and admitted medically. Today offers me a cookie from his lunch tray, pleasant and cooperative with interview. Tells me his mood is stable noting "I just woke up". Fully oriented noting "I'm at [facility]", knows city, month and year. Recalls he got here because "I couldn't use my car and I was upset after my girlfriend left so thought I'd come here". Says now he feels "much better" and wants to go home. Knows that "they put some sodium in me yesterday" when I ask about reason for his admission and recognizes that "I haven't needed anymore" as IV is now disconnected. Recognizes he struggles with "my short-term memory" and is on Aricept for this. Doesn't seem to recall that he was started on seroquel 50mg BID but denies any side effects from this. Denies SI. Denies HI. Denies auditory grant and visual grant. Asked about paranoia he denies being targeted or followed by anyone but later tells me "there were some people trying to take my house from me, I heard them talking about it but I refused to sign the papers". Tells me he lives alone, is retired, likes to chop wood, and cooks "chicken, steak, lasagna" and speaks to how to go about this. Cannot tell me how he gets groceries stating it's usually his "girfriend" but that "it's been 6 month since I had a caregiver and I haven't been able to find one". Further history per psych liason note from 03/04/22: "Patient seen for initial consult, alert and oriented x 4 - but often mumbling incongruent statements, able to state "I wasn't feeling very good, I was tired, I was down, so I tried hitch hiking to the hospital. My sister had all my cars disabled. I'm feeling a lot better now than I was yesterday I'm probably ready to leave", patient denies any drug or alcohol use - "last drink was like 6-7 years ago", patient seen on consult in November for similar presentation and denied services at this time, when asking about services for discharge he states "No, I don't think so - not unless they can talk to me while I'm chopping wood", patient mostly wanted to vent about his sister "It's a war with her she wants my home, and the longer I'm stuck in here the more she can mess with my shit, if I get home and thousands of dollars of music equipment is gone I'm gonna shoot her", when asking patient if he owns firearms he states "no, no I don't" - when inquiring how he plans to shoot his sister if he doesn't have guns he states "a squirt gun", patient again denied he owns guns when asked, he states he does feel safe at home but falls a lot however "[place]", patient states he sees a [facility] PCP but can't really articulate about the medications he is prescribed, ROIs obtained at this time for his sister and [facility]." as well as further collateral from patient's niece per psych liason note from 03/04/22: "Spoke with Debbi who is patient's niece, she reminded this liaison of the situation when patient was last consulted through our services and we had spoken multiple times in the past, at that time patient was making threats again his sister - who helped with his caregiving - and had delusions regarding her trying to steal from him and take his home, he presents similarly during this stay but Debbi states that her mom is now at [facility] and police have been involved with him calling their facility and making threats stating he is irais joe, Debbi did confirm that patient does not have any firearms but that it has been difficult getting caregivers to his house because he makes them uncomfortable, she feels his violent threats have escalated since last admission but his ability to carry them out remains very limited, she is unsure if he even has a functioning vehicle to drive, but [place] will get fuel to heat his house." Past Psychiatric History Previous Psych Admissions: denies Do You Have Access To A Gun?: No History of Previous Suicide Attempt: No Allergies Allergy/AdvReac Type Severity Reaction Status Date / Time No Known Allergies Allergy Verified 11/30/21 18:20 Home Medications Medication Instructions Recorded Confirmed Type amlodipine 5 mg-benazepril 10 mg 10 cap PO DAILY 03/03/22 03/03/22 History capsule (Lotrel) buspirone 10 mg tablet 10 mg PO DAILY 03/03/22 03/03/22 History donepezil 5 mg tablet (Aricept) 5 mg PO DAILY 03/03/22 03/03/22 History folic acid 1 mg tablet 1 mg PO DAILY 03/03/22 03/03/22 History quetiapine 50 mg tablet (Seroquel) 50 mg PO BID 03/03/22 03/03/22 History thiamine HCl (vitamin B1) 100 mg 100 mg PO DAILY 03/03/22 03/03/22 History tablet (Vitamin B-1) Substance Abuse History hx significant alcohol use, cannabis use-denies any recent use of either Personal History Living Arrangements: Home Employment Status: Retired Marital Status: Single Beliefs That Will Affect Care: None Patient History Medical History Alcohol abuse Alcohol use Hypertension Hyponatremia Paranoia Tobacco abuse Transaminitis Surgical History No pertinent past surgical history Social History Smoking Status: Smoker, status unknown Tobacco Type: Cigarettes Hx Alcohol Use: Yes Alcohol type: beer Hx Substance Use: No Preferred Language: Colombian Communication Ability: Effective Brushing Operator Required: No Beliefs That Will Affect Care: None Current Living Situation: Alone Feels Safe at Home: Yes Assistive Devices: None Physical Exam Psychiatric: Orientation: alert and oriented x 3 Apperance: appropriately dressed and appropriately groomed Eye Contact: + fair eye contact Motor Behavior: no abnormal motor movements Speech: + abnormal rate/rhythm/volume of speech (mumbles, dysarthria, at times difficult to understand ) Affect: euthymic affect Mood: no depressed mood, no anxious mood and no irritable mood Thought Process: goal directed thought process Thought Content: + paranoid and reality based without delusions; no persecution, no hopelessness and no loneliness Suicidal Thoughts: denies suicidal thoughts Homicidal Thoughts: denies homicidal thoughts Hallucinations: no auditory hallu cinations and no visual hallucinations Cognition: recent memory grossly intact, remote memory grossly intact, attention grossly intact and language grossly intact Estimated Intelligence: consistent with education level Insight: + limited insight Judgement: + limited judgement Vital Signs (Past 24 Hours): Last Vital Signs Temp 36.7 C 03/04/22 09:00 Pulse 77 03/04/22 09:00 Resp 16 03/04/22 09:00 BP 132/77 03/04/22 09:00 Pulse Ox 94 03/04/22 09:00 O2 Del Method 03/04/22 09:00 Review of Systems All systems reviewed & are unremarkable except as noted in HPI & below Results & Data (PSY) Laboratory Results Na+ improving, 136 today; UDS negative Medications Administered Amlodipine Besylate (Amlodipine Besylate 5 Mg Tab) 5 mg PO DAILY JOHN Stop: 04/03/22 08:59 Last Admin: 03/04/22 08:32 Dose: 5 mg Documented By: AYDEN Buspirone HCl (Buspirone 5 Mg Tab) 10 mg PO DAILY JOHN Stop: 04/03/22 08:59 Last Admin: 03/04/22 08:33 Dose: 10 mg Documented By: AYDEN Donepezil HCl (Donepezil Hcl 5 Mg Tab) 5 mg PO DAILY [facility] Stop: 04/03/22 08:59 Last Admin: 03/04/22 08:33 Dose: 5 mg Documented By: AYDEN Enalapril Maleate (Enalapril Maleate 10 Mg Tab) 10 mg PO DAILY JOHN Stop: 04/03/22 08:59 Last Admin: 03/04/22 08:33 Dose: 10 mg Documented By: AYDEN Enoxaparin Sodium (Enoxaparin Inj 40 Mg/0.4 Ml Syr) 40 mg SQ Q24H JOHN Stop: 04/03/22 08:59 Last Admin: 03/04/22 08:46 Dose: 40 mg Documented By: AYDEN Folic Acid (Folic Acid 1 Mg Tab) 1 mg PO DAILY [facility] Stop: 04/03/22 08:59 Last Admin: 03/04/22 08:33 Dose: 1 mg Documented By: AYDEN Lorazepam (Lorazepam 1 Mg Tab) 1 mg PO Q4H PRN PRN Reason: Anxiety/Agitation Stop: 04/03/22 02:22 Last Admin: 03/04/22 07:36 Dose: 1 mg Documented By: AYDEN Quetiapine Fumarate (Quetiapine Fumarate 25 Mg Tablet) 50 mg PO BID [facility] Stop: 04/03/22 08:59 Last Admin: 03/04/22 08:33 Dose: 50 mg Documented By: AYDEN Thiamine HCl (Thiamine Hcl 100 Mg Tab) 100 mg PO DAILY [facility] Stop: 04/03/22 08:59 Last Admin: 03/04/22 08:33 Dose: 100 mg Documented By: AYDEN Coding Level of Care Code 96940 Inpt Consult Level 3 Diagnoses Altered mental status R41.82 Cognitive impairment R41.89 Hyponatremia E87.1 Paranoia F22 Falls frequently R29.6
[2022-03-04] MEDS: GABAPENTIN 600 MG TAB PO SCH ×2 (12:15→17:57)
--- NOTE | 2022-03-04 12:41 | Hospitalist Progress Note ---
Date of Service March 04, 2022 Assessment & Plan (1) Hyponatremia: (2) Tobacco abuse: Plan Patient was brought in by Chief Underwriter There are concerns according to Admitting Provider about inability to care for self Hyponatremia on presentation currently resolved today Patient tells me he lives alone at his home and recently had a fall out with his girlfriend. He is not a good historian and it is tough assessing his capacity at this time. Likely has dementia Patient agreeable to stay for today while CM finds out more information about home situation and if safe for discharge home I discussed with CM who will look into home needs I discussed with psych. I agree with Psych that I do not think patient needs to be 302'd based on psychiatric disorder at this time as he does not show any right now. However, patient should stay in the hospital until good dispo plans are made. Will reassess decision making again later He is agreeable to stay till tomorrow. Continue amlodipine for hypertension Continue home buspirone, seroquel Lovenox for DVT ppx Admission and Anticipated Discharge Date Admission Date: March 03, 2022 Subjective Patient seen and examined Denied any headache, dizziness Denied any cough, shortness of breath, chest pain Denied nausea, vomiting, abd pain, fever, chills, dysuria, freq, urgency Denied depression, anxiety at this time Physical Exam Constitutional: + well hydrated; no acute distress Eyes: PERRL, conjunctivae normal, anicteric sclerae ENMT: external ear and nose normal, oropharynx normal Respiratory: normal respiratory effort, lungs clear to auscultation Cardiovascular: Rate/Rhythm: regular rate and regular rhythm S1 S2 Gastrointestinal (Abdomen): normal bowel sounds, soft, nontender, no hepatosplenomegaly Neurologic: PERRL, EOMI, accommodation nl, no face palsy, no dysarthria Psychiatric: Orientation: alert and oriented x 3 Results & Data Results & Data ([facility]) Vital Signs (Past 12 Hours) Vital Signs Temp Pulse Resp BP Pulse Ox O2 Del Method 03/04/22 09:00 36.7 C 77 16 132/77 94 Room Air 03/04/22 08:49 36.6 C 94 H 18 131/84 95 Room Air 03/04/22 02:38 95 Room Air 03/04/22 01:12 96 H 16 129/80 95 Room Air Laboratory Results Abnormal lab results 03/04/22 03/04/22 Range/Units 08:35 08:35 RBC 4.14 L (4.63-6.08) M/uL Hgb 13.2 L (14.0-18.0) g/dl Hct 38.9 L (40.1-51.0) % Glucose 125 H (70-99(Fasting)) mg/dl
[2022-03-05] MEDS ORDERED: GABAPENTIN 600 MG TAB PO SCH (06:00)
[2022-03-05] MEDS: THIAMINE HCL 100 MG TAB PO SCH (09:34)
[2022-03-05] MEDS: FOLIC ACID 1 MG TAB PO SCH (09:34)
[2022-03-05] MEDS: amLODIPine BESYLATE 5 MG TAB PO SCH (09:34)
[2022-03-05] MEDS: ENALAPRIL MALEATE 10 MG TAB PO SCH (09:34)
[2022-03-05] MEDS: DONEPEZIL HCL 5 MG TAB PO SCH (09:34)
[2022-03-05] MEDS: busPIRone 5 MG TAB PO SCH (09:34)
[2022-03-05 09:44] LABS: Hematocrit (blood only) 40.5 % (40.1-51.0); Hemoglobin 13.5 g/dl (14.0-18.0); Mean Corpuscular Hemoglobin 32.1 pg (25.0-34.0); Mean Corpuscular Hgb Conc 33.3 g/dL (32.0-36.0); Mean Corpuscular Volume 96.4 fL (80.0-100.0); Mean Platelet Volume 9.6 fL (9.4-12.4); Platelet Count 257 K/uL (130-400); RDW Coefficient of Variation 12.1 % (11.5-14.5); RDW Standard Deviation 42.7 fL (36.4-46.3); White Blood Count 5.24 K/ul (4.8-10.8)
[2022-03-05 10:07] LABS: Anion Gap 6 (3-11); BUN Creatinine Ratio 22.3 (10-20); Blood Urea Nitrogen 25 mg/dl (6-23); Calcium 9.3 mg/dl (8.5-10.1); Carbon Dioxide 28 mmol/L (21-32); Chloride 104 mmol/L (98-107); Est GFR (African American) 78.4 ml/min; Est GFR (Non-African American) 67.6 ml/min; Glucose 121 mg/dl (70-99(Fasting)); Potassium 3.8 mmol/L (3.5-5.1); Sodium 138 mmol/L (136-145)
[2022-03-05] MEDS: QUEtiapine FUMARATE 25 MG TABLET PO SCH (10:33)
--- NOTE | 2022-03-05 14:00 | Discharge Summary ---
Discharge Summary Date of Service March 05, 2022 Notes For Next Care Provider Continue management of chronic medical problems Medication Changes From Visit No changes Admission HPI Per Admitting Provider This is a 66-year-old male with history of alcohol abuse, ongoing tobacco abuse, past medical history of paranoia, hypertension, chronic hepatitis C, div erticulosis of colon, history of BPH, psoriatic arthritis as per records, currently who lives alone at home, but he was brought in by spray foam installer because he was hitchhiking. Patient says his friend, Tiki left him and he was trying to walk to the hospital. Mexican Food Machine Tender found him on the road and brought him to the hospital. In the ER, he was given Ativan, somewhat drowsy, but able to answer. He knows his name, knows that he is in the hospital, knows his date of , knows today's date. He is still smoking, he says smokes 3 packs in a week. He states he used to drink alcohol, but denies any drinking lately. He states he has some cough. Denies any fever, no chest pain, no nausea, no abdominal pain, no headaches. Normal bowel and bladder movements. He is ambulating okay in the ER, but is very disheveled. 302 petition has been done as he was found hitchhiking and concerned for proper self care. He also saw the PCP recently on 02/06/2022 with a diagnosis of cognitive impairment. At that time, Tiki, his friend accompanied him to the PCP and for some short-term memory problems and not able to cook and clean for himself .As per the PCP notes, his friend, Tiki does believe he is able to dress, bathe himself. He used to have a woman come to assist him in the past, but she is no longer coming and cannot be contacted as per PCP notes.Sometimes he has inappropriate outbursts. Seems Tiki gives food for him. He is unable to go shop for himself and she lives in [place] .As per PCP notes his friend Tiki was concerned whether he is taking his medications right or taking at all .Per PCP notes, patients friend does not believe he is still drinking, but the patient today states she left him, and so he started to walk to the hospital. Apart from the above, could not get much history from the patient. Admission Exam Per Admitting Provider GENERAL: The patient is disabled, not in acute distress. VITAL SIGNS: Temperature 37.2, pulse 109, respiratory rate 17, blood pressure 136/72, oxygen 94% on room air. HEENT: Pupils equal, round and reactive to light. Oral mucosa moist. NECK: No JVD. No neck masses. CARDIOVASCULAR: S1 and S2 heard. Regular rate and rhythm. No murmur, no gallop. RESPIRATORY SYSTEM: Normal AP diameter. No accessory muscle use. No wheezing, no crackles. ABDOMEN: Soft, bowel sounds present, nontender, no distention. CENTRAL NERVOUS SYSTEM: Alert and oriented. Speech is clear. No facial droop. Obeys simple commands. Ambulating okay in the ER. EXTREMITIES: No edema, no erythema Principal Dx & Hospital Course #1 = Principal Diagnosis (1) Hyponatremia: (2) Tobacco abuse: Plan Patient was brought in by Mexican Food Machine Tender There are concerns according to Admitting Provider about inability to care for self Sodium was low at 129 on presentation This has resolved. Na is 138 today Patient was 302'd on admission due to concern for ability to take of himself. However, this was not upheld after psych evaluation Patient demonstrates capacity today Though, he may have some cognitive impairment. Patient reported he has all his meds and will not need refill until follow up with PCP CM contacted Debbi who is his niece as patient stated she is the only one in the family he was willing to help care for him Patient discharged to her Continue amlodipine-benazepril for hypertension Continue home buspirone, seroquel Discharge Exam Constitutional + well hydrated; no acute distress Eyes PERRL, conjunctivae normal, anicteric sclerae ENMT external ear and nose normal, oropharynx normal Respiratory normal respiratory effort, lungs clear to auscultation Cardiovascular Rate/Rhythm: regular rate and regular rhythm S1 S2 Gastrointestinal (Abdomen) normal bowel sounds, soft, nontender, no hepatosplenomegaly Musculoskeletal no cyanosis or clubbing, extremities motor strength 5/5 Neurologic PERRL, EOMI, accommodation nl, no face palsy, no dysarthria Psychiatric Orientation: alert and oriented x 3 Updated Medication List Medication Instructions Recorded Confirmed Type amlodipine 5 mg-benazepril 10 mg 10 cap PO DAILY 03/03/22 03/03/22 History capsule (Lotrel) buspirone 10 mg tablet 10 mg PO DAILY 03/03/22 03/03/22 History donepezil 5 mg tablet (Aricept) 5 mg PO DAILY 03/03/22 03/03/22 History folic acid 1 mg tablet 1 mg PO DAILY 03/03/22 03/03/22 History quetiapine 50 mg tablet (Seroquel) 50 mg PO BID 03/03/22 03/03/22 History thiamine HCl (vitamin B1) 100 mg 100 mg PO DAILY 03/03/22 03/03/22 History tablet (Vitamin B-1) Hospital Stay Data Consultations 03/03/22 20:39 ED Decision to Admit Stat 03/03/22 20:53 ED Decision to Admit Stat 03/04/22 02:23 Consult Psychiatry Routine Diagnostic Imagining Performed 03/03/22 14:39 CT head/brain wo con Stat This study is mildly compromised by motion artifact. No acute intracranial hemorrhage, midline shift or mass effect is present. The ventricular system is unremarkable. The basal cisterns are patent. No extra-axial collections are present. There are no findings to suggest acute dural sinus thrombosis or acute territorial infarct. No significant calvarial abnormalities are present. Visualized portions of the sinuses and mastoid air cells are clear. IMPRESSION: No acute intracranial findings. No change in appearance of the brain. Pending Results Patient Have Any Pending Studies at Discharge: No Discharge Instructions Given to Patient (Per Discharging Provider) Mr Villalobos You were brought to the hospital for evaluation You were managed for low sodium level. This was managed and resolved. Please ensure you follow up with your Primary Doctor. It was a pleasure taking care of you. Total Time Total Time Spent Total Time Spent (In Minutes): 40 Total Time Includes: Examination of the Patient, Discharge Planning and Medication Reconciliation
[2022-03-06] MEDS ORDERED: GABAPENTIN 600 MG TAB PO SCH (10:00)
[2022-03-07] MEDS ORDERED: GABAPENTIN 600 MG TAB PO SCH (22:00)
== END 2022-03-05 14:35 | disposition home or self-care (01) ==
LOC: ED 12:55 → EDINP 23:47 → INTOOBSV 23:47 → SUATTDRO 23:47 → EDINP 03-05 14:37

== ENCOUNTER 2023-12-24 17:08 | Observation (INO) ==
[2023-12-24 18:32] LABS: Appearance Urine Clear (Clear); Bilirubin Urine Negative (Negative); Blood Urine Negative (Negative); Color Urine Yellow; Glucose Urine UA Negative (Negative); Ketones Urine Negative (Negative); Leukocyte Esterase Urine Negative (Negative); Nitrite Urine Negative (Negative); Protein Urine Negative (Negative); Specific Gravity Urine 1.006 (1.000-1.030); Urobilinogen Urine Negative (Negative); pH Urine 6.5 (4.5-7.5)
[2023-12-24 18:36] LABS: Basophils # (auto) 0.05 K/uL (0.00-0.20); Basophils % (auto) 0.4 %; Eosinophils # (auto) 0.11 K/uL (0.00-0.50); Eosinophils % (auto) 0.8 %; Hematocrit (blood only) 45.7 % (42.0-52.0); Hemoglobin 15.9 g/dl (14.0-18.0); Immature Granulocytes # (auto) 0.04 K/uL (0.01-0.20); Immature Granulocytes % (auto) 0.3 %; Lymphocytes # (auto) 2.85 K/uL (1.20-3.40); Lymphocytes % (auto) 21.4 %; Mean Corpuscular Hemoglobin 31.2 pg (25.0-34.0); Mean Corpuscular Hgb Conc 34.8 g/dL (32.0-36.0); Mean Corpuscular Volume 89.6 fL (80.0-100.0); Mean Platelet Volume 10.3 fL (9.4-12.4); Monocytes # (auto) 1.03 K/uL (0.11-0.59); Monocytes % (auto) 7.7 %; Neutrophils # (auto) 9.26 K/uL (1.40-6.50); Neutrophils % (auto) 69.4 %; Platelet Count 290 K/uL (130-400); RDW Coefficient of Variation 12.2 % (11.5-14.5); RDW Standard Deviation 40.3 fL (36.4-46.3); White Blood Count 13.34 K/ul (4.8-10.8)
[2023-12-24 18:51] LABS: Acetaminophen < 3 ug/ml (10-30); Salicylate < 3.0 mg/dl (3.0-30)
[2023-12-24 18:55] LABS: Alanine Aminotransferase 12 U/L (7-52); Albumin Globulin Ratio 1.1 (0.9-2); Albumin Level 4.6 gm/dl (3.4-5.0); Alkaline Phosphatase 109 U/L (34-104); Anion Gap 10 (3-11); Aspartate Aminotransferase 20 U/L (13-39); BUN Creatinine Ratio 12.6 (10-20); Bilirubin,Total 0.5 mg/dl (0.2-1.0); Blood Urea Nitrogen 12 mg/dl (6-23); Calcium 10.3 mg/dl (8.6-10.3); Carbon Dioxide 24 mmol/L (21-32); Chloride 100 mmol/L (98-107); Est GFR (African American) 94.3 ml/min; Est GFR (Non-African American) 81.3 ml/min; Globulin 4.1 gm/dl (2.5-4.0); Glucose 76 mg/dl (70-99(Fasting)); Magnesium 1.8 mg/dl (1.7-2.4); Potassium 4.1 mmol/L (3.5-5.1); Sodium 134 mmol/L (136-145); Total Protein 8.7 gm/dl (6.0-8.3)
--- NOTE | 2023-12-24 18:56 | Emergency Department Note ---
Impression & Plan AMS (altered mental status), Unable to care for self, Acute paranoia ED Provider Note HISTORY OF PRESENT ILLNESS: Patient is a 68-year-old male presenting with altered mental status and flight of ideas. Patient called 911 because he states "I was fearful and very scared." He is unable to really specify what he is scared of. Reports that he thinks there was someone waving a gun in her face threatening to shoot him. He is alert to person and to the year. When initially asked about place, he stated that he was at a hotel and then corrected himself to hospital. He is difficult to get a history from as he has difficulty following a train of thought. He denies any recreational drug use or alcohol use, even though he had disclosed that to the triage nurse. He denies any chest pain or shortness of breath. He states that "I have lost everybody and I lost my life saving this." He states that "I cannot do this anymore." He denies any homicidal ideation. When asked about suicidal ideation, he is silent and avoids the question, but then circles back and states he is not. ROS: as above PHYSICAL EXAM: Constitutional: Patient appears in no acute distress. HENT: Head: Normocephalic and atraumatic. Eyes: EOMI, PERRL Mouth/Throat: Mucous membranes moist. Neck: Trachea midline. Neck supple. Musculoskeletal: No edema, tenderness or deformity noted. Skin: Warm and dry. No rash, erythema, pallor or cyanosis Psychiatric: Appears poorly groomed. Thought process is tangential and difficult to redirect. Neurological: Alert to person and time. Moves all extremities spontaneously. MDM: - Vitals signs showed hypertension and tachycardia. - History obtained via patient. History as above. - Chronic conditions affecting care: HTN; cirrhosis; BPH; psoriasis; mood disorder; psychosis; Alzheimer's disease - Differential diagnoses include, but are not limited to: Pneumonia; UTI; CVA; intracranial hemorrhage; medication side effect; ACS; electrolyte abnormality - External medical records reviewed. [facility] psychiatry note dated 12/01/2023 was reviewed. 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 At that visit the plan was to taper and discontinue his quetiapine for his unspecified psychotic disorder. - EKG interpreted by myself showed normal sinus rhythm. Rate 74 bpm. QT 382. No acute ischemic changes. Noted to have an incomplete right bundle branch block. - Laboratory workup interpreted by myself showed leukocytosis (WBC 13.34); normal lactate; normal PT/INR; stable electrolytes; normal troponin; normal TSH; negative salicylates/acetaminophen/alcohol levels - CT head wo contrast negative for acute pathology - CXR negative for pneumonia, per my interpretation. - Viral respiratory panel negative - UA negative - UDS negative - Patient was seen in conjunction with the behavioral health rn field case manager. Patient lives home alone and he does appear confused though intermittently answers questions appropriately. Concern for his ability to care for self, so will admit to hospitalist service. - Discussion was had with rn field case manager about patient's case and need for admission - Hospitalist, Dr. Claros, consulted for admission - Patient admitted to [facility] hospitalist service for further evaluation and management. ASSESSMENT AND PLAN: Diagnosis: Altered mental status; acute paranoia; unable to care for self Plan: Admit Past Med/Surg History Problem List (Updated 12/24/23 @ 22:10 by Kristy Fishman MD) Acute paranoia (Acute) Unable to care for self (Acute) AMS (altered mental status) (Acute) Falls frequently Cognitive impairment Unable to care for self (Acute) Ataxia (Acute) Paranoia (Acute) Alcohol abuse (Acute) Hyponatremia (Acute) Transaminitis (Acute) Hypertension Tobacco abuse Altered mental status Medical History Alcohol use Surgical History (Updated 08/28/22 @ 10:26 by Leigh Gomes LPN) History of surgery on lower extremity No pertinent past surgical history Family History (Updated 08/28/22 @ 10:25 by Leigh Gomes LPN) Sister Breast cancer Mother Lung cancer Denies family history of Ovarian cancer Prostate cancer Myocardial infarction Colorectal cancer Social History (Updated 08/28/22 @ 10:46 by Leigh Gomes LPN) Smoking Status: Current every day smoker Tobacco Type: Cigarettes Age Started Using Tobacco: 13; Cigarettes Per Day: has cut way back to 2 cigarettes a day.; Second Hand Exposure: No; Do You Dip or Chew Tobacco: No; Hx Alcohol Use: Yes Alcohol type: beer Hx Substance Use: No Preferred Language: Vietnamese Communication Ability: Effective Unisaw Operator Required: No Beliefs That Will Affect Care: None marital status: Single Current Living Situation: Alone and Personal Care Facility current occupational status: retired How many Children do You have: 0 Feels Safe at Home: Hesitant to Answer Childhood Exposure to Second-Hand Smoke: Yes Diet: regular caffeine: Yes Dental Care, Regularly: No Physical Activity Frequency: Daily Seatbelt Use: sometimes Sunscreen Use: Yes Gender Identity: Male Assistive Devices: None Allergies Allergies Allergy/AdvReac Type Severity Reaction Status Date / Time No Known Allergies Allergy Verified 08/28/22 10:08 Home Meds Home Medications Medication Instructions Recorded Confirmed amlodipine 10 mg tablet (Norvasc) 10 mg PO DAILY 12/24/23 12/24/23 Previous Rx's Medication Instructions Recorded aspirin 81 mg capsule 81 mg PO DAILY #90 caps 08/28/22 divalproex 125 mg capsule,delayed 500 mg (4 x 125 mg) PO BID #240 08/28/22 release sprinkle caps donepezil 5 mg tablet (Aricept) 10 mg (2 x 5 mg) PO HS #90 tabs 08/28/22 Results & Data (ED) Vital Signs Vital Signs - 24 hr 12/24/23 17:44 12/24/23 17:44 12/24/23 18:21 Temperature 36.9 C 36.9 C Temperature Source Oral Oral Pulse Rate 93 H 82 Pulse Rate [Right] 93 H Respiratory Rate 18 18 18 Respiratory Effort / Characteristics Non-Labored Spontaneous Non-Labored Spontaneous Respiratory Depth Normal Normal Blood Pressure 146/77 H Blood Pressure [Left Arm] 146/77 H Blood Pressure Mean 100 Blood Pressure Mean [Left Arm] 100 Blood Pressure Position Semi-fowlers Blood Pressure Position [Left Arm] Semi-fowlers Pulse Oximetry 95 95 95 Oxygen Delivery Method Room Air Room Air Room Air Sepsis Recent Fever Within 48 Hours No Sepsis New/Unexplained Change in Mental Status N/A Sepsis Action Taken by Nursing No Action Required 12/24/23 20:31 Temperature 36.7 C Temperature Source Oral Pulse Rate Pulse Rate [Right] 82 Respiratory Rate 18 Respiratory Effort / Characteristics Respiratory Depth Blood Pressure Blood Pressure [Left Arm] 127/79 Blood Pressure Mean Blood Pressure Mean [Left Arm] 95 Blood Pressure Position Blood Pressure Position [Left Arm] Pulse Oximetry 95 Oxygen Delivery Method Room Air Sepsis Recent Fever Within 48 Hours Sepsis New/Unexplained Change in Mental Status Sepsis Action Taken by Nursing Laboratory Data 12/24/23 17:40 12/24/23 17:40 Lab Results 12/24/23 12/24/23 12/24/23 Range/Units 17:30 17:40 20:25 WBC 13.34 H (4.8-10.8) K/ul RBC 5.10 (4.70-6.10) M/uL Hgb 15.9 (14.0-18.0) g/dl Hct 45.7 (42.0-52.0) % MCV 89.6 (80.0-100.0) fL MCH 31.2 (25.0-34.0) pg MCHC 34.8 (32.0-36.0) g/dL RDW Std Deviation 40.3 (36.4-46.3) fL RDW Coeff of Arielle 12.2 (11.5-14.5) % Plt Count 290 (130-400) K/uL MPV 10.3 (9.4-12.4) fL Immature Gran % (Auto) 0.3 % Neut % (Auto) 69.4 % Lymph % (Auto) 21.4 % Coles % (Auto) 7.7 % Eos % (Auto) 0.8 % Baso % (Auto) 0.4 % Neut # (Auto) 9.26 H (1.40-6.50) K/uL Lymph # (Auto) 2.85 (1.20-3.40) K/uL Coles # (Auto) 1.03 H (0.11-0.59) K/uL Eos # (Auto) 0.11 (0.00-0.50) K/uL Baso # (Auto) 0.05 (0.00-0.20) K/uL Immature Gran # (Auto) 0.04 (0.01-0.20) K/uL PT 10.9 (9.0-12.0) Seconds INR 1.0 (0.9-1.1) Sodium 134 L (136-145) mmol/L Potassium 4.1 (3.5-5.1) mmol/L Chloride 100 (98-107) mmol/L Carbon Dioxide 24 (21-32) mmol/L Anion Gap 10 (3-11) BUN 12 (6-23) mg/dl Creatinine 0.95 (0.6-1.4) mg/dl Est Cr Clr Drug Dosing Not Reportable Est GFR ( Amer) 94.3 ml/min Est GFR (Non-Af Amer) 81.3 ml/min BUN/Creatinine Ratio 12.6 (10-20) Glucose 76 (70-99(Fasting)) mg/dl Lactate 0.8 (0.4-2.0) mmol/L Calcium 10.3 (8.6-10.3) mg/dl Magnesium 1.8 (1.7-2.4) mg/dl Total Bilirubin 0.5 (0.2-1.0) mg/dl AST 20 (13-39) U/L ALT 12 (7-52) U/L Alkaline Phosphatase 109 H (34-104) U/L Troponin I High Sens 6.7 (0-20) pg/ml Total Protein 8.7 H (6.0-8.3) gm/dl Albumin 4.6 (3.4-5.0) gm/dl Globulin 4.1 H (2.5-4.0) gm/dl Albumin/Globulin Ratio 1.1 (0.9-2) TSH 1.079 (0.300-4.500) uIu/ml Urine Color Yellow Urine Appearance Clear (Clear) Urine pH 6.5 (4.5-7.5) Ur Specific [place] 1.006 (1.000-1.030) Urine Protein Negative (Negative) Urine Glucose (UA) Negative (Negative) Urine Ketones Negative (Negative) Urine Blood Negative (Negative) Urine Nitrite Negative (Negative) Urine Bilirubin Negative (Negative) Urine Urobilinogen Negative (Negative) Ur Leukocyte Esterase Negative (Negative) Salicylates < 3.0 L (3.0-30) mg/dl Urine Opiates Screen Neg (Neg) Ur Methadone, Qual Neg (Neg) Urine Fentanyl Screen Neg (Neg) Acetaminophen < 3 L (10-30) ug/ml Urine Barbiturates Neg (Neg) Ur Phencyclidine (PCP) Neg (Neg) U Amphetamin/Meth Scrn Neg (Neg) MDMA (Ecstasy) Screen Neg (Neg) U Benzodiazepines Scrn Neg (Neg) Ur Cocaine Metabolite Neg (Neg) U Marijuana (THC) Screen Neg (Neg) Ethyl Alcohol mg/dL < 10.0 (<10.0) mg/dl Adenovirus (PCR) (NotDetected) B. pertussis DNA (PCR) (NotDetected) B.parapertussis DNA PCR (NotDetected) C. pneumoniae DNA (PCR) (NotDetected) Coronavirus OC43 (PCR) (NotDetected) Coronavirus HKU1 (PCR) (NotDetected) Coronavirus 229E (PCR) (NotDetected) SARS-CoV-2 (PCR) (NotDetected) Coronavirus NL63 (PCR) (NotDetected) Human Metapneumovir PCR (NotDetected) Influenza Type A (PCR) (NotDetected) Influenza Type B (PCR) (NotDetected) M. pneumoniae (PCR) (NotDetected) Parainfluenza 1 (PCR) (NotDetected) Parainfluenza 2 (PCR) (NotDetected) Parainfluenza 3 (PCR) (NotDetected) Parainfluenza 4 (PCR) (NotDetected) RSV (PCR) (NotDetected) Entero/Rhino (PCR) (NotDetected) 12/24/23 Range/Units 20:40 WBC (4.8-10.8) K/ul RBC (4.70-6.10) M/uL Hgb (14.0-18.0) g/dl Hct (42.0-52.0) % MCV (80.0-100.0) fL MCH (25.0-34.0) pg MCHC (32.0-36.0) g/dL RDW Std Deviation (36.4-46.3) fL RDW Coeff of Arielle (11.5-14.5) % Plt Count (130-400) K/uL MPV (9.4-12.4) fL Immature Gran % (Auto) % Neut % (Auto) % Lymph % (Auto) % Coles % (Auto) % Eos % (Auto) % Baso % (Auto) % Neut # (Auto) (1.40-6.50) K/uL Lymph # (Auto) (1.20-3.40) K/uL Coles # (Auto) (0.11-0.59) K/uL Eos # (Auto) (0.00-0.50) K/uL Baso # (Auto) (0.00-0.20) K/uL Immature Gran # (Auto) (0.01-0.20) K/uL PT (9.0-12.0) Seconds INR (0.9-1.1) Sodium (136-145) mmol/L Potassium (3.5-5.1) mmol/L Chloride (98-107) mmol/L Carbon Dioxide (21-32) mmol/L Anion Gap (3-11) BUN (6-23) mg/dl Creatinine (0.6-1.4) mg/dl Est Cr Clr Drug Dosing Est GFR ( Amer) ml/min Est GFR (Non-Af Amer) ml/min BUN/Creatinine Ratio (10-20) Glucose (70-99(Fasting)) mg/dl Lactate (0.4-2.0) mmol/L Calcium (8.6-10.3) mg/dl Magnesium (1.7-2.4) mg/dl Total Bilirubin (0.2-1.0) mg/dl AST (13-39) U/L ALT (7-52) U/L Alkaline Phosphatase (34-104) U/L Troponin I High Sens (0-20) pg/ml Total Protein (6.0-8.3) gm/dl Albumin (3.4-5.0) gm/dl Globulin (2.5-4.0) gm/dl Albumin/Globulin Ratio (0.9-2) TSH (0.300-4.500) uIu/ml Urine Color Urine Appearance (Clear) Urine pH (4.5-7.5) Ur Specific [place] (1.000-1.030) Urine Protein (Negative) Urine Glucose (UA) (Negative) Urine Ketones (Negative) Urine Blood (Negative) Urine Nitrite (Negative) Urine Bilirubin (Negative) Urine Urobilinogen (Negative) Ur Leukocyte Esterase (Negative) Salicylates (3.0-30) mg/dl Urine Opiates Screen (Neg) Ur Methadone, Qual (Neg) Urine Fentanyl Screen (Neg) Acetaminophen (10-30) ug/ml Urine Barbiturates (Neg) Ur Phencyclidine (PCP) (Neg) U Amphetamin/Meth Scrn (Neg) MDMA (Ecstasy) Screen (Neg) U Benzodiazepines Scrn (Neg) Ur Cocaine Metabolite (Neg) U Marijuana (THC) Screen (Neg) Ethyl Alcohol mg/dL (<10.0) mg/dl Adenovirus (PCR) Not Detected (NotDetected) B. pertussis DNA (PCR) Not Detected (NotDetected) B.parapertussis DNA PCR Not Detected (NotDetected) C. pneumoniae DNA (PCR) Not Detected (NotDetected) Coronavirus OC43 (PCR) Not Detected (NotDetected) Coronavirus HKU1 (PCR) Not Detected (NotDetected) Coronavirus 229E (PCR) Not Detected (NotDetected) SARS-CoV-2 (PCR) Not Detected (NotDetected) Coronavirus NL63 (PCR) Not Detected (NotDetected) Human Metapneumovir PCR Not Detected (NotDetected) Influenza Type A (PCR) Not Detected (NotDetected) Influenza Type B (PCR) Not Detected (NotDetected) M. pneumoniae (PCR) Not Detected (NotDetected) Parainfluenza 1 (PCR) Not Detected (NotDetected) Parainfluenza 2 (PCR) Not Detected (NotDetected) Parainfluenza 3 (PCR) Not Detected (NotDetected) Parainfluenza 4 (PCR) Not Detected (NotDetected) RSV (PCR) Not Detected (NotDetected) Entero/Rhino (PCR) Not Detected (NotDetected) Imaging Data Radiologist's Impression: Head CT 12/24/23 19:13 Exam(s): CT HEAD Without Contrast EXAM: CT Head Without Intravenous Contrast CLINICAL HISTORY: Reason for exam: confusion. TECHNIQUE: Axial computed tomography images of the head/brain without intravenous contrast. CTDI is 35.51 mGy and DLP is 702.46 mGy-cm. Automated exposure control was utilized for the study. A dose lowering technique was utilized adhering to the principles of ALARA. COMPARISON: CT head: 08/28/2022 FINDINGS: Sensitivity of the exam is markedly reduced by motion/beam hardening artifacts. Brain: No definite acute intracranial hemorrhage, mass-effect or midline shift. Age-related cerebral atrophy with widening of the extra-axial spaces and ventricular dilatation. There are areas of decreased attenuation within the white matter tracts of the supratentorial brain likely with chronic microvascular disease changes. Bones/joints: Unremarkable. No acute fracture. Soft tissues: Unremarkable. Sinuses: Unremarkable as visualized. No acute sinusitis. Mastoid air cells: Sclerosed right mastoid air cells. Left mastoid air cells are clear. IMPRESSION: Limited exam. No definite acute intracranial abnormality identified. Chronic involutional and ischemic changes of the brain. . Electronically signed by: Missy Finch MD, DABR 12/24/23 21:39 PM Chest X-Ray 12/24/23 19:14 SINGLE VIEW CHEST CLINICAL HISTORY: Change in mental status. FINDINGS: An AP, portable, upright chest radiograph is compared to study dated 08/28/2022. The examination is degraded by portable technique and apical lordotic positioning. The cardiomediastinal silhouette is unremarkable noting atherosclerotic calcification of the thoracic aorta. There are scattered calcific granulomas. The lungs and pleural spaces are otherwise clear. No pneumothorax is seen. The bony thorax is grossly intact. IMPRESSION: No active disease in the chest. ACT 112: Negative or not required by law. Electronically signed by: Eleuterio Galeas M.D. 12/24/2023 9:15 PM Discharge Plan Visit Data Chief Complaint: Mental Health Evaluation ED Provider: Kristy Fishman Discharge Problem: AMS (altered mental status), Unable to care for self, Acute paranoia Forms Stand Alone Forms: My [facility], Suicide Prevention Resources Prescriptions Prescriptions: No Action divalproex 125 mg capsule, delayed rel sprinkle 500 mg PO BID Qty: 240 2RF donepezil [Aricept] 5 mg tablet 10 mg PO HS Qty: 90 1RF amlodipine [Norvasc] 10 mg tablet 10 mg PO DAILY citalopram [Celexa] 20 mg tablet 20 mg PO [place] 81 mg capsule 81 mg PO DAILY Referrals Referrals: PCP,NO [Primary Care Provider] -
[2023-12-24 19:01] LABS: Troponin I High Sensitivity 6.7 pg/ml (0-20)
[2023-12-24 19:12] LABS: Thyroid Stimulating Hormone 1.079 uIu/ml (0.300-4.500)
[2023-12-24 19:18] LABS: Amphetamines+Metham, Urine Neg (Neg); Barbiturates, Urine Neg (Neg); Benzodiazepine, Urine Neg (Neg); Cocaine, Urine Neg (Neg); Fentanyl, Urine Neg (Neg); MDMA (Ecstacy), Urine Neg (Neg); Marijuana, Urine Neg (Neg); Methadone, Urine Neg (Neg); Opiate, Urine Neg (Neg); Phencyclidine, Urine Neg (Neg)
[2023-12-24 19:28] LABS: Prothrombin Time 10.9 Seconds (9.0-12.0)
--- NOTE | 2023-12-24 21:17 | XRay Report ---
SINGLE VIEW CHEST CLINICAL HISTORY: Change in mental status. FINDINGS: An AP, portable, upright chest radiograph is compared to study dated 08/28/2022. The examina tion is degraded by portable technique and apical lordotic positioning. The cardiomediastinal silhoue tte is unremarkable noting atherosclerotic calcification of the thoracic aorta. There are scattered c alcific granulomas. The lungs and pleural spaces are otherwise clear. No pneumothorax is seen. The [place] thorax is grossly intact. IMPRESSION: No active disease in the chest. ACT 112: Negative or not required by law. Electronically signed by: Eleuterio Galeas M.D. 12/24/2023 9:15 PM
--- NOTE | 2023-12-24 21:40 | CT Scan Report ---
Exam(s): CT HEAD Without Contrast EXAM: CT Head Without Intravenous Contrast CLINICAL HISTORY: Reason for exam: confusion. TECHNIQUE: Axial computed tomography images of the head/brain without intravenous contrast. CTDI is 35.51 mGy and DLP is 702.46 mGy-cm. Automated exposure control was utilized for the study. A dose lowering technique was utilized adhering to the principles of ALARA. COMPARISON: CT head: 08/28/2022 FINDINGS: Sensitivity of the exam is markedly reduced by motion/beam hardening artifacts. Brain: No definite acute intracranial hemorrhage, mass-effect or midline shift. Age-related cerebral atrophy with widening of the extra-axial spaces and ventricular dilatation. There are areas of decreased attenuation within the white matter tracts of the supratentorial brain likely with chronic microvascular disease changes. Bones/joints: Unremarkable. No acute fracture. Soft tissues: Unremarkable. Sinuses: Unremarkable as visualized. No acute sinusitis. Mastoid air cells: Sclerosed right mastoid air cells. Left mastoid air cells are clear. IMPRESSION: Limited exam. No definite acute intracranial abnormality identified. Chronic involutional and ischemic changes of the brain. . Electronically signed by: Missy Finch MD, DABR 12/24/23 21:39 PM
[2023-12-24 21:49] LABS: Adenovirus PCR Not Detected (NotDetected); Bordetella parapertussis PCR Not Detected (NotDetected); Bordetella pertussis PCR Not Detected (NotDetected); Chlamydia pneumoniae PCR Not Detected (NotDetected); Coronavirus 229E PCR Not Detected (NotDetected); Coronavirus CoV-2 (COVID19)PCR Not Detected (NotDetected); Coronavirus HKU1 PCR Not Detected (NotDetected); Coronavirus NL63 PCR Not Detected (NotDetected); Coronavirus OC43PCR Not Detected (NotDetected); Human Metapneumovirus PCR Not Detected (NotDetected); Influenza A PCR Not Detected (NotDetected); Influenza B PCR Not Detected (NotDetected); Mycoplasma pneumoniae PCR Not Detected (NotDetected); Parainfluenza Virus 1 PCR Not Detected (NotDetected); Parainfluenza Virus 2 PCR Not Detected (NotDetected); Parainfluenza Virus 3 PCR Not Detected (NotDetected); Parainfluenza Virus 4 PCR Not Detected (NotDetected); Respiratory Syncytial VirusPCR Not Detected (NotDetected); Rhinovirus/Enterovirus PCR Not Detected (NotDetected)
--- NOTE | 2023-12-24 22:35 | History & Physical Report ---
Date of Service December 24, 2023 Assessment & Plan (1) Depressed: Plan: History of anxiety/mood disorder History of dementia hypertension, stable Ongoing alcohol abuse past tobacco abuse Possible functional disability OBS Medical telemetry Psych consult re: depression JEANIE S at risk protocol, DT precautions PT OT eval DVT prophylaxis. Lovenox subcu Full code Patient niece/POA requesting for updates regarding patient's care. Ms. Debbi Mantilla, contact #[phone]. Text document was generated using [employer] voice recognition software. It may contain grammatical or spelling errors. Kindly contact undersigned for clarification of any documentation item in question. History of Present Illness Chief Complaint: "I have the blues. I am scared." Primary Care Provider: Dr. Valencia History obtained from patient, family, and records. Patient is a fair historian. Medical history significant for hypertension, dementia, anxiety/mood disorder, past history of seizures as per records, psoriatic arthritis, alcohol abuse, past tobacco abuse. Last confinement March 2022 for hyponatremia. Patient called 911 today because he was scared and he had the "blues". Denies suicidality. Denies headache, chest pain, SOB, abdominal pain. Patient niece who lives in [place] unaware of issues at home. Patient brought to ER for evaluation. 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 Allergies Allergy/AdvReac Type Severity Reaction Status Date / Time No Known Allergies Allergy Verified 08/28/22 10:08 Home Medications Medication Instructions Recorded Confirmed Type donepezil 5 mg tablet (Aricept) 10 mg (2 x 5 mg) PO HS #90 tabs 08/28/22 12/24/23 Rx amlodipine 10 mg tablet (Norvasc) 10 mg PO DAILY 12/24/23 12/24/23 History aspirin 81 mg capsule (Vazalore) 81 mg PO DAILY 12/24/23 12/24/23 History citalopram 20 mg tablet (Celexa) 20 mg PO DAILY 12/24/23 12/24/23 History lisinopril 10 mg tablet 10 mg PO DAILY 12/24/23 12/24/23 History memantine 5 mg tablet 5 mg PO BID 12/24/23 12/24/23 History risperidone 0.5 mg tablet 0.5 mg PO DAILY 12/24/23 12/24/23 History (Risperdal) thiamine HCl (vitamin B1) 100 mg 100 mg PO DAILY 12/24/23 12/24/23 History tablet (Vitamin B-1) Past Med/Surg History Problem List (Updated 12/25/23 @ 06:18 by Davi Claros MD) Depressed Acute paranoia (Acute) Unable to care for self (Acute) AMS (altered mental status) (Acute) Falls frequently Cognitive impairment Unable to care for self (Acute) Ataxia (Acute) Paranoia (Acute) Alcohol abuse (Acute) Hyponatremia (Acute) Transaminitis (Acute) Hypertension Tobacco abuse Altered mental status Medical History Alcohol use Surgical History (Updated 08/28/22 @ 10:26 by Leigh Gomes LPN) History of surgery on lower extremity No pertinent past surgical history Family History (Updated 08/28/22 @ 10:25 by Leigh Gomes LPN) Sister Breast cancer Mother Lung cancer Denies family history of Ovarian cancer Prostate cancer Myocardial infarction Colorectal cancer Social History (Updated 08/28/22 @ 10:46 by Leigh Gomes LPN) Smoking Status: Unknown if ever smoked Tobacco Type: Cigarettes Age Started Using Tobacco: 13; Cigarettes Per Day: has cut way back to 2 cigarettes a day.; Second Hand Exposure: No; Do You Dip or Chew Tobacco: No; Hx Alcohol Use: Yes (unknown of last alcohol intake) Alcohol type: beer Hx Substance Use: No Preferred Language: Angolan Communication Ability: Impaired Communication Ability Comment: pt currently has flight of ideas Manager R D Required: Voice Beliefs That Will Affect Care: None marital status: Single Current Living Situation: Alone current occupational status: retired How many Children do You have: 0 Feels Safe at Home: Hesitant to Answer Safety Concerns: Afraid for Self Childhood Exposure to Second-Hand Smoke: Yes Diet: regular caffeine: Yes Dental Care, Regularly: No Physical Activity Frequency: Daily Seatbelt Use: sometimes Sunscreen Use: Yes Gender Identity: Male Assistive Devices: None Review of Systems Review of Systems: Could not be reliably obtained secondary to disorientation Physical Exam Physical Exam: GENERAL: Oriented to year, slightly hard of hearing, unkempt, no respiratory distress SKIN: Normal color, warm HEENT: Bespectacled, [place] palpebral conjunctivae, no ptosis, dry buccal mucosa NECK : Supple, no tenderness CHEST : Decreased breath sounds, no tenderness HEART : RRR, no obvious murmurs ABDOMEN: Some distention, nontender EXTREMITIES : No LE swelling/tenderness, no other conspicuous deformities noted NEUROLOGIC : Oriented to place, no facial asymmetry, slightly hard of hearing, gait and stance not assessed Results & Data Results & Data Vital Signs (Past 12 Hours) Vital Signs Temp Pulse Pulse Resp BP BP Pulse Ox 12/24/23 20:31 36.7 C 82 18 127/79 95 12/24/23 18:21 82 18 95 12/24/23 17:44 36.9 C 93 H 18 146/77 H 95 12/24/23 17:44 36.9 C 93 H 18 146/77 H 95 O2 Del Method 12/24/23 20:31 Room Air 12/24/23 18:21 Room Air 12/24/23 17:44 Room Air 12/24/23 17:44 Room Air Laboratory Results Laboratory Results WBC 13.34 K/ul (4.8-10.8) H 12/24/23 17:40 RBC 5.10 M/uL (4.70-6.10) 12/24/23 17:40 Hgb 15.9 g/dl (14.0-18.0) 12/24/23 17:40 Hct 45.7 % (42.0-52.0) 12/24/23 17:40 MCV 89.6 fL (80.0-100.0) 12/24/23 17:40 MCH 31.2 pg (25.0-34.0) 12/24/23 17:40 MCHC 34.8 g/dL (32.0-36.0) 12/24/23 17:40 RDW Std Deviation 40.3 fL (36.4-46.3) 12/24/23 17:40 RDW Coeff of Arielle 12.2 % (11.5-14.5) 12/24/23 17:40 Plt Count 290 K/uL (130-400) 12/24/23 17:40 MPV 10.3 fL (9.4-12.4) 12/24/23 17:40 Immature Gran % (Auto) 0.3 % 12/24/23 17:40 Neut % (Auto) 69.4 % 12/24/23 17:40 Lymph % (Auto) 21.4 % 12/24/23 17:40 [place] % (Auto) 7.7 % 12/24/23 17:40 Eos % (Auto) 0.8 % 12/24/23 17:40 Baso % (Auto) 0.4 % 12/24/23 17:40 Neut # (Auto) 9.26 K/uL (1.40-6.50) H 12/24/23 17:40 Lymph # (Auto) 2.85 K/uL (1.20-3.40) 12/24/23 17:40 [place] # (Auto) 1.03 K/uL (0.11-0.59) H 12/24/23 17:40 Eos # (Auto) 0.11 K/uL (0.00-0.50) 12/24/23 17:40 Baso # (Auto) 0.05 K/uL (0.00-0.20) 12/24/23 17:40 Immature Gran # (Auto) 0.04 K/uL (0.01-0.20) 12/24/23 17:40 PT 10.9 Seconds (9.0-12.0) 12/24/23 17:40 INR 1.0 (0.9-1.1) 12/24/23 17:40 Sodium 134 mmol/L (136-145) L 12/24/23 17:40 Potassium 4.1 mmol/L (3.5-5.1) 12/24/23 17:40 Chloride 100 mmol/L (98-107) 12/24/23 17:40 Carbon Dioxide 24 mmol/L (21-32) 12/24/23 17:40 Anion Gap 10 (3-11) 12/24/23 17:40 BUN 12 mg/dl (6-23) 12/24/23 17:40 Creatinine 0.95 mg/dl (0.6-1.4) 12/24/23 17:40 Est Cr Clr Drug Dosing Not Reportable 12/24/23 17:40 Est GFR ( Amer) 94.3 ml/min 12/24/23 17:40 Est GFR (Non-Af Amer) 81.3 ml/min 12/24/23 17:40 BUN/Creatinine Ratio 12.6 (10-20) 12/24/23 17:40 Glucose 76 mg/dl (70-99(Fasting)) 12/24/23 17:40 Lactate 0.8 mmol/L (0.4-2.0) 12/24/23 20:25 Calcium 10.3 mg/dl (8.6-10.3) 12/24/23 17:40 Magnesium 1.8 mg/dl (1.7-2.4) 12/24/23 17:40 Total Bilirubin 0.5 mg/dl (0.2-1.0) 12/24/23 17:40 AST 20 U/L (13-39) 12/24/23 17:40 ALT 12 U/L (7-52) 12/24/23 17:40 Alkaline Phosphatase 109 U/L (34-104) H 12/24/23 17:40 Troponin I High Sens 6.7 pg/ml (0-20) 12/24/23 17:40 Total Protein 8.7 gm/dl (6.0-8.3) H 12/24/23 17:40 Albumin 4.6 gm/dl (3.4-5.0) 12/24/23 17:40 Globulin 4.1 gm/dl (2.5-4.0) H 12/24/23 17:40 Albumin/Globulin Ratio 1.1 (0.9-2) 12/24/23 17:40 TSH 1.079 uIu/ml (0.300-4.500) 12/24/23 17:40 Urine Color Yellow 12/24/23 17:30 Urine Appearance Clear (Clear) 12/24/23 17:30 Urine pH 6.5 (4.5-7.5) 12/24/23 17:30 Ur Specific [place] 1.006 (1.000-1.030) 12/24/23 17:30 Urine Protein Negative (Negative) 12/24/23 17:30 Urine Glucose (UA) Negative (Negative) 12/24/23 17:30 Urine Ketones Negative (Negative) 12/24/23 17:30 Urine Blood Negative (Negative) 12/24/23 17:30 Urine Nitrite Negative (Negative) 12/24/23 17:30 Urine Bilirubin Negative (Negative) 12/24/23 17:30 Urine Urobilinogen Negative (Negative) 12/24/23 17:30 Ur Leukocyte Esterase Negative (Negative) 12/24/23 17:30 Salicylates < 3.0 mg/dl (3.0-30) L 12/24/23 17:40 Urine Opiates Screen Neg (Neg) 12/24/23 17:30 Ur Methadone, Qual Neg (Neg) 12/24/23 17:30 Urine Fentanyl Screen Neg (Neg) 12/24/23 17:30 Acetaminophen < 3 ug/ml (10-30) L 12/24/23 17:40 Urine Barbiturates Neg (Neg) 12/24/23 17:30 Ur Phencyclidine (PCP) Neg (Neg) 12/24/23 17:30 U Amphetamin/Meth Scrn Neg (Neg) 12/24/23 17:30 MDMA (Ecstasy) Screen Neg (Neg) 12/24/23 17:30 U Benzodiazepines Scrn Neg (Neg) 12/24/23 17:30 Ur Cocaine Metabolite Neg (Neg) 12/24/23 17:30 U Marijuana (THC) Screen Neg (Neg) 12/24/23 17:30 Ethyl Alcohol mg/dL < 10.0 mg/dl (<10.0) 12/24/23 17:40 Adenovirus (PCR) Not Detected (NotDetected) 12/24/23 20:40 B. pertussis DNA (PCR) Not Detected (NotDetected) 12/24/23 20:40 B.parapertussis DNA PCR Not Detected (NotDetected) 12/24/23 20:40 C. pneumoniae DNA (PCR) Not Detected (NotDetected) 12/24/23 20:40 Coronavirus OC43 (PCR) Not Detected (NotDetected) 12/24/23 20:40 Coronavirus HKU1 (PCR) Not Detected (NotDetected) 12/24/23 20:40 Coronavirus 229E (PCR) Not Detected (NotDetected) 12/24/23 20:40 SARS-CoV-2 (PCR) Not Detected (NotDetected) 12/24/23 20:40 Coronavirus NL63 (PCR) Not Detected (NotDetected) 12/24/23 20:40 Human Metapneumovir PCR Not Detected (NotDetected) 12/24/23 20:40 Influenza Type A (PCR) Not Detected (NotDetected) 12/24/23 20:40 Influenza Type B (PCR) Not Detected (NotDetected) 12/24/23 20:40 M. pneumoniae (PCR) Not Detected (NotDetected) 12/24/23 20:40 Parainfluenza 1 (PCR) Not Detected (NotDetected) 12/24/23 20:40 Parainfluenza 2 (PCR) Not Detected (NotDetected) 12/24/23 20:40 Parainfluenza 3 (PCR) Not Detected (NotDetected) 12/24/23 20:40 Parainfluenza 4 (PCR) Not Detected (NotDetected) 12/24/23 20:40 RSV (PCR) Not Detected (NotDetected) 12/24/23 20:40 Entero/Rhino (PCR) Not Detected (NotDetected) 12/24/23 20:[address] 12/24/23 19:13 Exam(s): CT HEAD Without Contrast EXAM: CT Head Without Intravenous Contrast CLINICAL HISTORY: Reason for exam: confusion. TECHNIQUE: Axial computed tomography images of the head/brain without intravenous contrast. CTDI is 35.51 mGy and DLP is 702.46 mGy-cm. Automated exposure control was utilized for the study. A dose lowering technique was utilized adhering to the principles of ALARA. COMPARISON: CT head: 08/28/2022 FINDINGS: Sensitivity of the exam is markedly reduced by motion/beam hardening artifacts. Brain: No definite acute intracranial hemorrhage, mass-effect or midline shift. Age-related cerebral atrophy with widening of the extra-axial spaces and ventricular dilatation. There are areas of decreased attenuation within the white matter tracts of the supratentorial brain likely with chronic microvascular disease changes. Bones/joints: Unremarkable. No acute fracture. Soft tissues: Unremarkable. Sinuses: Unremarkable as visualized. No acute sinusitis. Mastoid air cells: Sclerosed right mastoid air cells. Left mastoid air cells are clear. IMPRESSION: Limited exam. No definite acute intracranial abnormality identified. Chronic involutional and ischemic changes of the brain. . Electronically signed by: Missy Finch MD, DABR 12/24/23 21:39 PM Chest X-Ray 12/24/23 19:14 SINGLE VIEW CHEST CLINICAL HISTORY: Change in mental status. FINDINGS: An AP, portable, upright chest radiograph is compared to study dated 08/28/2022. The examination is degraded by portable technique and apical lordotic positioning. The cardiomediastinal silhouette is unremarkable noting atherosclerotic calcification of the thoracic aorta. There are scattered calcific granulomas. The lungs and pleural spaces are otherwise clear. No pneumothorax is seen. The bony thorax is grossly intact. IMPRESSION: No active disease in the chest. ACT 112: Negative or not required by law. Electronically signed by: Eleuterio Galeas M.D. 12/24/2023 9:15 PM Diagnostic Findings EKG as per my interpretation : Rate 75, LAD, LAFB, incomplete RBBB, anterior infarct, no ischemia
[2023-12-24] MEDS ORDERED: LORazepam 1 MG in SYRINGE 0.5 ML IV PRN (22:38)
[2023-12-24] MEDS ORDERED: ACETAMINOPHEN 325 MG TAB PO PRN (23:16)
[2023-12-24] MEDS: MULTI-VITAMIN INFUSION 10 ML, THIAMINE HCL 100 MG, FOLIC ACID 1 MG in SODIUM CHLORIDE 0... IV STA (23:18)
[2023-12-24 23:24] VITALS: TEMP 98.2
[2023-12-25 04:34] LABS: Basophils # (auto) 0.04 K/uL (0.00-0.20); Basophils % (auto) 0.5 %; Eosinophils # (auto) 0.18 K/uL (0.00-0.50); Eosinophils % (auto) 2.1 %; Hematocrit (blood only) 41.8 % (42.0-52.0); Hemoglobin 14.5 g/dl (14.0-18.0); Immature Granulocytes # (auto) 0.03 K/uL (0.01-0.20); Immature Granulocytes % (auto) 0.3 %; Lymphocytes # (auto) 2.65 K/uL (1.20-3.40); Lymphocytes % (auto) 30.4 %; Mean Corpuscular Hemoglobin 31.3 pg (25.0-34.0); Mean Corpuscular Hgb Conc 34.7 g/dL (32.0-36.0); Mean Corpuscular Volume 90.1 fL (80.0-100.0); Mean Platelet Volume 9.7 fL (9.4-12.4); Monocytes # (auto) 0.83 K/uL (0.11-0.59); Monocytes % (auto) 9.5 %; Neutrophils # (auto) 4.99 K/uL (1.40-6.50); Neutrophils % (auto) 57.2 %; Platelet Count 242 K/uL (130-400); RDW Coefficient of Variation 12.5 % (11.5-14.5); RDW Standard Deviation 41.1 fL (36.4-46.3); Red Blood Count 4.64 M/uL (4.70-6.10); White Blood Count 8.72 K/ul (4.8-10.8)
[2023-12-25 04:50] LABS: Anion Gap 7 (3-11); Blood Urea Nitrogen 9 mg/dl (6-23); Calcium 9.5 mg/dl (8.6-10.3); Carbon Dioxide 24 mmol/L (21-32); Chloride 104 mmol/L (98-107); Est GFR (African American) 104.6 ml/min; Est GFR (Non-African American) 90.2 ml/min; Glucose 96 mg/dl (70-99(Fasting)); Potassium 4.2 mmol/L (3.5-5.1); Sodium 135 mmol/L (136-145)
[2023-12-25] MEDS: ASPIRIN 81 MG ECTAB PO SCH (08:06)
[2023-12-25] MEDS: risperiDONE 0.5 MG TABLET PO SCH (08:06)
[2023-12-25] MEDS: MULTIVITAMIN TAB PO SCH (08:06)
[2023-12-25] MEDS: CITALOPRAM 20 MG TAB PO SCH (08:06)
[2023-12-25] MEDS: amLODIPine BESYLATE 5 MG TAB PO SCH (08:06)
[2023-12-25] MEDS: THIAMINE HCL 100 MG TAB PO SCH (08:06)
[2023-12-25] MEDS: lisinopril 10 MG TAB PO SCH (08:06)
[2023-12-25] MEDS: MEMANTINE HCL 5 MG TAB PO SCH (08:06)
[2023-12-25] MEDS: FOLIC ACID 1 MG TAB PO SCH (08:06)
--- NOTE | 2023-12-25 08:16 | Electrocardiogram Report ---
Test Reason : Blood Pressure : */* mmHG Vent. Rate : 74 BPM Atrial Rate : 74 BPM P-R Int : 194 ms QRS Dur : 106 ms QT Int : 382 ms P-R-T Axes : 48 -77 44 degrees QTcB Int : 424 ms Poor data quality, interpretation may be adversely affected Normal sinus rhythm Left anterior fascicular block Incomplete right bundle branch block Possible Old Anteroseptal infarct Abnormal ECG When compared with ECG of 28-Aug-2022 18:53, No significant change Confirmed by Dayo Neff ([id number]) on 12/25/2023 8:16:08 AM Referred By: REFERRED SELF Confirmed By: Dayo Neff
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
--- OUTSIDE RECORDS SUMMARY | 2023-12-25 08:29 | External Medical Summary | Summary of Care ---
Author Name Unknown Organization [facility] Address [address] [facility] [place] [address] Phone [phone] Care Team Providers Care Uppers Edge Burnisher Name Role Phone Davi Valencia Primary Care Provid er Reason for Visit * Reason Onset Date Comments Appointment 09/19/2023 Received call fr emmy Ma caregiver Encounter Details Date Type Department Care Team (Late st Contact Info) Description 09/19/2023 [facility]phone [facility] [address] [place] [address] Beto Dhaliwal MD [address] [place] [address] Appointment (Received call from Francesca Cummings.. Allergies No known active allergiesdocumented as of this encounter (statuses as of 09/22/2023) Medications Medication Sig Dispensed Refills Start Date End Date Status ASPIRIN 81 MG PO TABS Take by mouth daily. Active amLODIPine Besylate 10 MG Oral Tablet (Norvasc)Indications:E ssential hypertension with goal blood pressure less than 130/85 TAKE 1 TABLET BY MOUTH EVERY DAY IN THE MORNING 30 Tablet 5 05/23/2023 Active Lisinopril 10 MG Oral Tablet (Prinivil)Indications: Essential hypertension with goal blood pressure less than 130/85 TAKE 1 TABLET BY MOUTH EVERY DAY IN THE MORNING 90 Tablet 1 05/28/2023 Active Thiamine HCl 100 MG Oral Tablet (vitamin B-1)Indications:Histor y of alcohol use disorder TAKE 1 TABLET BY MOUTH EVERY MORNING 90 Tablet 1 06/23/2023 Active Donepezil HCl 10 MG Oral Tablet (Aricept)Indications:S evere dementia associated with alcoholism, with psychotic disturbance (HCC) Take 1 Tablet by mouth daily with dinner. 30 Tablet 3 08/11/2023 Active Memantine HCl 5 MG Oral Tablet (Namenda) Take 1 Tablet by mouth 2 times a day with morning and evening meals. 60 Tablet 3 08/11/2023 Active Citalopram Hydrobromide 20 MG Oral Tablet (CeleXA)Indications:Mo od disorder (HCC) Take 1 Tablet by mouth in the morning. With breakfast. 30 Tablet 3 09/15/2023 Active QUEtiapine Fumarate 200 MG Oral Tablet (SEROquel)Indications: Severe dementia associated with alcoholism, with psychotic disturbance (HCC) Take 1 Tablet by mouth at bedtime. 30 Tablet 2 09/15/2023 Active documented as of this encounter (statuses as of 09/22/2023) Active Problems Problem Noted Date Diagnosed Date Major depressive disorder, recurrent episode, mo derate [...] as of this encounter (statuses as of 09/22/2023) Resolved Problems Problem Noted Date Diagnosed Date Resolved Date Unspecified dementia, unspec ified severity, without behavioral disturbance, psychotic disturbance, mood disturbance, and anxiety 04/04/2022 05/30/2023 HTN, goal below 140/80 05/11/201208/09 Erectile dysfunction 01/27/2012 022 Psoriatic arthropathy 08/01/20112017 documented as of this encounter (statuses as of 09/22/2023) Immunizations Name Administration Dates Next Due Pneumococcal Conjugate Vacci ne, 20-valent ([id number]) 12/10/2021 Pneumococcal Polysaccharide PPV23 (Pneumovax) 04/24/2012 Season Influenza, Cell Cultu re, 18+ Yrs, With Preserv (Flucelvax) 04/20/2013 Seasonal Influenza, PF, 6 M & above, IM , (FluLaval or Fluzone) 03/12/2019 Seasonal Influenza, Quadriva lent, No Preserve, IM 07/10/2016,02/01/2015 Seasonal Influenza, Split, I IV3, With Preserve, Inj 01/05/2014,01/27/2012 TDAP (age 10 and older)(Boostrix) 08/07/2009 TDAP (age 11 and older)(Adacel) 12/01/2008(Defer red: Patient Refused) documented as of this encounter [...] money to get more. Never true 06/30/2023 Sex and Gender Information Value Date Recorded Sex Assigned at Male 06/11/2023 3:46 PM EST Gender Identity Male 06/11/2023 3:46 PM EST Sexual Orientation Not on file Job Start Date Occupation Industry Not on file Not on file Not on file documented as of this encounter Miscellaneous Notes * Telephone Encounter - Lor Ta OSA - 09/22/2023 10:42 AM EDT Carlos'd colon 03/05/24. * Telephone Encounter - Yadira Steel OSA - 09/19/2023 1:13 PM EDT I received a call from Jame's caregiver. She stated that he would need procedure scheduled at [facility]. Will route to schedulers there. The number to call is [phone] documented in this encounter Plan of Treatment Upcoming Encounters Date Type Department Care Team (Latest Contact Info) Description 10/28/2023 12:30 PM EDT Telemedicine Psychiatry Chelo Turner [address] [place] [address] Tamra Crooks MD [address] [place] [address] 03/02/2024 2:20 PM EDT Office Visit [address] [address] Freddy Olivera MD [address] [place] [phone] 03/05/2024 10:45 AM EDT Hospital Encounter ENDO [facility], Endoscopy Room [facility] [address] [place] [address] Mathew Lang MD [address] [place] [address] 03/05/2024 10:45 AM EDT - 03/05/2024 11:15 AM EDT Surgery ENDO [facility], Endoscopy Room [facility] [address] [place] [phone] Mathew Lang MD [address] [place] [address] COLONOSCOPY FLEXIBLE PROXIMAL DIAGNOSTIC Scheduled Procedures Name Priority Associated Diagnoses Date/Ti me COLONOSCOPY FLEXIBLE PROXIMAL DIAGNOSTIC Screening for colon cancer 03/05/2024 10:45 AM EDT Health Maintenance Due Date Last Done Comments Cologuard 1999 Fecal Occult Blood Test 1999 Sigmoidoscopy 1999 Lung Cancer Screening 2004 Zoster Vaccines (1 of 2) 2004 Colonoscopy 02/09/2019 02/09/2014, 08/12/2008 Colorectal Cancer Screening 02/09/2019 DTaP,Tdap,and Td Vaccines (2 - Td or Tdap) 08/08/2019 08/07/2009 *BASELINE EKG FOR HTN 02/12/2022 COVID-19 Vaccine (1 - season) 2023 Influenza Vaccine (FLU shot) (Season Ended) 2024 03/12/2019, 07/10/2016, 02/01/2015, Additional history exists GFR 08/11/2024 08/12/2023, 0807/2022, 02/06/2022, Additional history exists Albumin/Creatinine Ratio 05/27/2026 05/27/2023 Diabetes Screening 08/11/2026 08/12/2023, 0 12/05/2022, 02/06/2022, Additional history exists Lipid Panel 02/06/2027 02/06/2022, 09/2018, 11/03/2015, Additional history exists RETIRED - COLONOSCOPY-EVERY 5 YRS AGES 18-100 Discontinued 02/09/2014, 08/12/2008 Pneumococcal Vaccine: 65+ Years Completed 12/10/2021, 04/24/2012 AAA Screening Completed 08/12/2023 GARDASIL-HPV IMMUNIZATION SERIES Aged Out No longer eligible based on patient's age to complete this topic Hepatitis B Aged Out No longer eligi ble based on patient's age to complete this topic MENINGOCOCCAL (MENACTRA/MENVEO) Aged Out No longer eligible based on patient's age to complete this topic documented as of this encounter Medical Devices Not on filedocumented as of this encounter Advance Directives Documents on File Type Date Recorded Patient Plate Grainer Apprentice Expl anation Power of Furniture Assembler 02/22/2019 POWER OF A TTORNEY - LIVING WILL Care Teams Uppers Edge Burnisher Relationship Specialty Start Date End Date Davi Valencia DO [address] [place] [id number] PCP - General Internal Medicine 12/10/21 documented as of this encounter
--- OUTSIDE RECORDS SUMMARY | 2023-12-25 08:29 | External Medical Summary | Summary of Care ---
Author Name Unknown Organization [facility] Address [address] [place] [facility] [place] [place] [address] Phone [phone] Care Team Providers Care Track Coach Name Role Phone Daxmaegan Davi Cheungothy Primary Care Provid er Reason for Visit * Reason Onset Date Comments Preop Pt Assessment 12/10/2023 MANUAL ARTS THERAPIST to revi ew Encounter Details Date Type Department Care Team (Late st Contact Info) Description 12/10/2023 Telephone [facility] [address] [place] [address] Britt Cameron DO [address] [place] [address] Preop Pt Assessment (MANUAL ARTS THERAPIST to review) Allergies No known active allergiesdocumented as of this encounter (statuses as of 12/10/2023) Medications Medication Sig Dispensed Refills Start Date [...] 06/23/2023 Active Lisinopril 10 MG Oral Tablet (Prinivil)Indications: [...] at bedtime. 30 Tablet 3 12/01/2023 Active documented as of this encounter (statuses as of 12/10/2023) Active Problems Problem Noted Date Diagnosed Date [...] as of this encounter (statuses as of 12/10/2023) Resolved Problems Problem Noted Date Diagnosed Date Resolved Date Unspecified dementia, unspec ified severity, without behavioral disturbance, psychotic disturbance, mood disturbance, and anxiety 04/04/2022 05/30/2023 HTN, goal below 140/80 05/11/201208/09 Erectile dysfunction 01/27/2012 022 Psoriatic arthropathy 08/01/20112017 documented as of this encounter (statuses as of 12/10/2023) Immunizations Name Administration Dates Next Due Pneumococcal Conjugate Vacci ne, 20-valent ([id number]) 12/10/2021 Pneumococcal Polysaccharide PPV23 (Pneumovax) 04/24/2012 Season Influenza, Cell Cultu re, 18+ Yrs, With Preserv (Flucelvax) 04/20/2013 Seasonal Influenza, PF, 6 M & above, IM , (FluLaval or Fluzone) 03/12/2019 Seasonal Influenza, Quadriva lent, No Preserve, IM 07/10/2016,02/01/2015 Seasonal Influenza, Split, I IV3, With Preserve, Inj 01/05/2014,01/27/2012 TDAP (age 10 and older)(Boostrix) 08/07/2009 TDAP, Age 7 and older, IM (Adacel) 12/01/2008(De wilfrido: Patient Refused) documented as of this encounter [...] encounter Miscellaneous Notes * Telephone Encounter - Paz Sol RN - 12/10/2023 2:16 PM EDT Chart reviewed by MANUAL ARTS THERAPIST. Pt will need to be rescheduled to hospital setting. Called pt to explain need to reschedule colon from [facility]. Spoke with caregivers. Both verbalized understanding. Request procedure to be performed at [facility] as previously planned. * Telephone Encounter - Paz Sol RN - 12/10/2023 12:12 PM EDT MANUAL ARTS THERAPIST to review chart prior to PAT assessment. Noted hx dementia, chronic alcohol abuse, takes psychmeds, current smoker. May not meet [facility] criteria. documented in this encounter Plan of Treatment Upcoming Encounters Date Type Department Care Team (Late st Contact Info) Description 12/16/2023 10:25 AM EDT Procedure Only [facility], [address] [address] Britt Cameron [address] [place] [address] 01/09/2024 2:30 PM EDT Telemedicine Psychiatry [address], [place] [address] [place] [address] Tamra Crooks MD [address] [place] [address] 03/02/2024 2:20 PM EDT Office Visit [facility] [address] [place] [address] Freddy Olivera MD [address] [place] [address] Health Maintenance Due Date Last Done Comments Fecal Occult Blood Test 1999 Sigmoidoscopy 1999 Lung Cancer Screening 2004 Zoster Vaccines (1 of 2) 2004 Colonoscopy 02/09/2019 02/09/2014, 08/12/2008 DTaP,Tdap,and Td Vaccines (2 - Td or Tdap) 08/08/2019 08/07/2009 Adult Wellness Visit 2020 *BASELINE EKG FOR HTN 02/12/2022 COVID-19 Vaccine ( - season) 2023 Colorectal Cancer Screening 09/24/2023 Influenza Vaccine (FLU shot) (#1) 2024 03/12/2019, 07/10/2016, 02/01/2015, Additional history exists Depression Monitoring 05/27/2024 05/27/2023 GFR 08/11/2024 08/12/2023, 08/0 07/2022, 02/06/2022, Additional history exists Albumin/Creatinine Ratio 05/27/2026 05/27/2023 Diabetes Screening 08/11/2026 08/12/2023, 0 12/05/2022, 02/06/2022, Additional history exists Cologuard 09/22/2026 09/23/2023, 05/, 09/12/2023 Lipid Panel 02/06/2027 02/06/2022, 09/2018, 11/03/2015, [...] Documents on File Type Date Recorded Patient Mixer Operator Vacuum Pan Salt Expl anation Power of Longwall Shearer Operator 02/22/2019 POWER OF A TTORNEY - LIVING WILL Care Teams Track Coach Relationship Specialty Start Date End Date Davi Valencia DO [address] [place] [phone] PCP - General Internal Medicine 12/10/21 documented as of this encounter
--- OUTSIDE RECORDS SUMMARY | 2023-12-25 08:29 | External Medical Summary | Summary of Care ---
Author Name Unknown Organization [facility] Address [address] [facility] [place] [address] Phone [phone] Care Team Providers Care Machine Lead Burner Name Role Phone Davi Mitchell DO Primary Care Provid er Reason for Visit * Reason Comments eRx-Medication Refill Encounter Details Date Type Department Care Team ([facility] Contact Info) Description 10/23/[address] [address] Davi Mitchell DO [address] [place] [phone] Essential hypertension with goal blood pressure less than 130/85 Allergies No known active allergiesdocumented as of this encounter (statuses as of 10/24/2023) Medications Medication Sig Dispensed Refills Start Date End Date Status ASPIRIN 81 MG PO TABS Take by mouth daily. Active amLODIPine Besylate 10 MG Oral Tablet (Norvasc)Indicatio ns:Essential hypertension with goal blood pressure less than 130/85 TAKE 1 TABLET BY MOUTH EVERY DAY IN THE MORNING 30 Tablet 5 05/23/2023 Active Thiamine HCl 100 MG Oral Tablet (vitamin B-1)Indications:Hi story of alcohol use disorder TAKE 1 TABLET BY MOUTH EVERY MORNING 90 Tablet 1 06/23/2023 Active Donepezil HCl 10 MG Oral Tablet (Aricept)Indicatio ns:Severe dementia associated with alcoholism, with psychotic disturbance (HCC) Take 1 Tablet by mouth daily with dinner. 30 Tablet 3 08/11/2023 Active Memantine HCl 5 MG Oral Tablet (Namenda) Take 1 Tablet by mouth 2 times a day with morning and evening meals. 60 Tablet 3 08/11/2023 Active Citalopram Hydrobromide 20 MG Oral Tablet (CeleXA)Indication s:Mood disorder (HCC) Take 1 Tablet by mouth in the morning. With breakfast. 30 Tablet 3 09/15/2023 Active QUEtiapine Fumarate 200 MG Oral Tablet (SEROquel)Indicati ons:Severe dementia associated with alcoholism, with psychotic disturbance (HCC) Take 1 Tablet by mouth at bedtime. 30 Tablet 2 09/15/2023 Active Lisinopril 10 MG Oral Tablet (Prinivil)Indicati ons:Essential hypertension with goal blood pressure less than 130/85 TAKE 1 TABLET BY MOUTH EVERY DAY IN THE MORNING 90 Tablet 1 10/24/2023 Active Lisinopril 10 MG Oral Tablet (Prinivil)Indicati ons:Essential hypertension with goal blood pressure less than 130/85 TAKE 1 TABLET BY MOUTH EVERY DAY IN THE MORNING 90 Tablet 1 05/28/2023 10/24/2023 Discontinued documented as of this encounter (statuses as of 10/24/2023) Active Problems Problem Noted Date Diagnosed Date [...] as of this encounter (statuses as of 10/24/2023) Resolved Problems Problem Noted Date Diagnosed Date Resolved Date Unspecified dementia, unspec ified severity, without behavioral disturbance, psychotic disturbance, mood disturbance, and anxiety 04/04/2022 05/30/2023 HTN, goal below 140/80 05/11/201208/09 Erectile dysfunction 01/27/2012 08/08/2 022 Psoriatic arthropathy 08/01/20112017 documented as of this encounter (statuses as of 10/24/2023) Immunizations Name Administration Dates Next Due Pneumococcal Conjugate Vacci ne, 20-valent ([id number]) 12/10/2021 Pneumococcal Polysaccharide PPV23 (Pneumovax) 04/24/2012 Season Influenza, Cell Cultu re, 18+ Yrs, With Preserv (Flucelvax) 04/20/2013 Seasonal Influenza, PF, 6 M & above, IM , (FluLaval or Fluzone) 03/12/2019 Seasonal Influenza, Quadriva lent, No Preserve, IM 07/10/2016,02/01/2015 Seasonal Influenza, Split, I IV3, With Preserve, Inj 01/05/2014,01/27/2012 TDAP (age 10 and older)(Boostrix) 08/07/2009 TDAP, Age 7 and older, IM (Adacel) 12/01/2008(De ferred: Patient Refused) documented as of this encounter [...] encounter Miscellaneous Notes * Telephone Encounter - Kristy Mauricio [facility] - 10/24/2023 6:50 AM EDTSigned Prescriptions: Disp Refills Lisinopril 10 MG Oral Tablet (Prinivil) 90 Tab*1 Sig: TAKE 1 TABLET BY MOUTH EVERY DAY IN THE MORNINGAuthorizing Provider: DAVI MITCHELL User: KRISTY MAURICIO documented in this encounter Plan of Treatment Upcoming Encounters Date Type Department Care Team (Latest Contact Info) Description 10/28/2023 12:30 PM EDT Telemedicine Psychiatry [place] [place] [address] [place] [phone] Tamra Crooks MD [address] [place] [address] 03/02/2024 2:20 PM EDT Office Visit [facility] [address] [place] [address] Freddy Olivera MD [address] [place] [address] 03/05/2024 10:45 AM EDT Hospital Encounter [facility], Endoscopy Room [facility] [address] [place] [address] Mathew Lang MD [address] [place] [address] 03/05/2024 10:45 AM EDT - 03/05/2024 11:15 AM EDT Surgery [facility], Endoscopy Room [facility] [address] [place] [address] Mathew Lang MD [address] [place] [address] COLONOSCOPY FLEXIBLE PROXIMAL DIAGNOSTIC Scheduled Procedures Name Priority Associated Diagnoses Date/Ti ne COLONOSCOPY FLEXIBLE PROXIMAL DIAGNOSTIC Screening for colon [...] (1 - season) 2023 Colorectal Cancer Screening 09/13/2023 Influenza Vaccine (FLU shot) (Season Ended) 2024 03/12/2019, 07/10/2016, 02/01/2015, Additional history exists Depression Monitoring 05/27/2024 05/27/2023 GFR 08/11/2024 08/12/2023, 08/07/2022, 02/06/2022, Additional history exists Albumin/Creatinine Ratio 05/27/2026 05/27/2023 Diabetes Screening 08/11/2026 08/12/2023, 0 12/05/2022, 02/06/2022, Additional history exists Cologuard 09/11/2026 09/12/2023 Lipid Panel 02/06/2027 02/06/2022, 0109/2018, 11/03/2015, Additional history exists RETIRED - COLONOSCOPY-EVERY [...] as of this encounter Visit Diagnoses Diagnosis Essential hypertension with goal blood pressure less than 130/85 Screening for colon cancer Special screening for malignant neoplasms, colon documented in this encounter Advance Directives Documents on File Type Date Recorded Patient Automotive Sales Manager Expl anation Power of Finish Machine Tender 02/22/2019 POWER OF A TTORNEY - LIVING WILL Care Teams Machine Lead Burner Relationship Specialty Start Date End Date Davi Mitchell DO [address] [place] [address] PCP - General Internal Medicine 12/10/21 documented as of this encounter
--- OUTSIDE RECORDS SUMMARY | 2023-12-25 08:29 | External Medical Summary | Summary of Care ---
Author Name Unknown Organization [facility] Address [address] [place] [address] Phone [phone] Care Team Providers Care Dispatch Lead Name Role Phone Davi Valencia Primary Care Provid er Reason for Visit * Reason Onset Date Comments Precert Denied 06/09/2023 Elijah Encounter Details Date Type Department Care Team (Late st Contact Info) Description 06/09/2023 Telephone Hepatology, [facility] [address] [place] [address] Juan Cruz MD [address] [place] [address] Precert Denied (Elijah) Allergies No known active allergiesdocumented as of this encounter (statuses as of 09/08/2023) Medications Medication Sig Dispensed Refills Start Date End Date Status ASPIRIN 81 MG PO TABS Take by mouth daily. 0 Active amLODIPine Besylate 10 MG Oral Tablet (Norvasc)Indicati ons:Essential hypertension with goal blood pressure less than 130/85 TAKE 1 TABLET BY MOUTH EVERY DAY IN THE MORNING 30 Tablet 5 05/23/2023 Active Lisinopril 10 MG Oral Tablet (Prinivil)Indicat ions:Essential hypertension with goal blood pressure less than 130/85 TAKE 1 TABLET BY MOUTH EVERY DAY IN THE MORNING 90 Tablet 1 05/28/2023 Active Sildenafil Citrate 100 MG Oral Tablet Take by mouth. 0 4 Discontinued(Pat ient preference/disco ntinuation) Memantine HCl 5 MG Oral Tablet (Namenda)Indicati ons:MCI (mild cognitive impairment) Take 1 Tablet by mouth 2 times a day with morning and evening meals. 60 Tablet 5 11/25/2022 4 Discontinued Thiamine HCl 100 MG Oral Tablet (vitamin B-1)Indications:H istory of alcohol use disorder TAKE 1 TABLET ORALLY DAILY IN THE MORNING 90 Tablet 1 02/18/2023 4 Discontinued Donepezil HCl 10 MG Oral Tablet (Aricept)Indicati ons:Severe dementia associated with alcoholism, with psychotic disturbance (HCC) Take 1 Tablet by mouth in the morning. Take with largest meal of the day.. 90 Tablet 3 04/01/2023 4 Discontinued(Ref ill) QUEtiapine Fumarate 300 MG Oral Tablet (SEROquel)Indicat ions:Severe dementia associated with alcoholism, with psychotic disturbance (HCC) Take 1 Tablet by mouth in the morning and 1 Tablet before bedtime. 180 Tablet 3 04/01/2023 4 Discontinued(Ref ill) Citalopram Hydrobromide 10 MG Oral Tablet (CeleXA)Indicatio ns:Mood disorder (HCC) Take 1 Tablet by mouth in the morning. 30 Tablet 2 05/27/2023 4 Discontinued(Ref ill) Mavyret 100-40 MG Oral Tablet (glecaprevir-pibr entasvir 100-40 mg per tab)Indications:C hronic hepatitis C without hepatic coma (HCC) Take one packet (all 3 tabs) once daily with food. 84 Tablet 1 06/06/2023 4 Discontinued(Med ication List Clean Up) documented as of this encounter (statuses as of 09/08/2023) Active Problems Problem Noted Date Diagnosed Date [...] as of this encounter (statuses as of 09/08/2023) Resolved Problems Problem Noted Date Diagnosed Date Resolved Date Unspecified dementia, unspec ified severity, without behavioral disturbance, psychotic disturbance, mood disturbance, and anxiety 04/04/2022 05/30/2023 HTN, goal below 140/80 05/11/201208/09 Erectile dysfunction 01/27/2012 022 Psoriatic arthropathy 08/01/20112017 documented as of this encounter (statuses as of 09/08/2023) Immunizations Name Administration Dates Next Due Pneumococcal Conjugate Vacci ne, 20-valent ([id number]) 12/10/2021 Pneumococcal Polysaccharide PPV23 (Pneumovax) 04/24/2012 Season [...] encounter Miscellaneous Notes * Telephone Encounter - Janine Ruiz CPhT - 07/21/2023 12:54 PM EDT Patient did get a new medicare part D plan if you can send for a Pa please per ins it will need one ID: [id number] BIN:[id number] PCN:[id number] Phone: Thank you! Janine Ruiz CPhT III [facility] * Telephone Encounter - Betsey Esqueda OSA - 07/15/2023 5:18 AM EDT [employer] is advising patient has Medicare primary. Patient will need to update COB with [employer]. Betsey Esqueda Medication Fisher Clam III P: [phone] F: [phone] 07/15/2023,5:20 AM * Telephone Encounter - Silva Mock technology instructor - 07/14/2023 3:57 PM EDT [place], Patient is no longer active with [employer]. Can we try to resubmit prior auth through [employer] insurance please? Thank you very much, Silva Mock Resources Representative [facility] 07/14/2023,3:58 PM * Telephone Encounter - Betsey Esqueda OSA - 07/02/2023 6:33 AM EST Images from the original note were not included. [employer] advised their records indicate patient is eligible for Medicare. Unfortunately either [employer] appeal will need to be initiated or if patient advising they dont have coverage and only [facility] they must contact their county assistance office or briefcase sewer for [place] to update their file. Thanks! Gladis Rider Freedom Of Information Officer [facility] 06/13/23,8:56 AM * Telephone Encounter - Kerry Cline CPhT - 07/01/2023 4:09 PM EST Checking on the status of the pa Thank you Kerry Cline Resources Representative III [facility] 07/01/2023,4:10 PM * Telephone Encounter - Cachorro Hammond technology instructor - 06/12/2023 9:23 AM EST New or re-auth: New Patient Jame Villalobos needs a prior authorization for a medication through their [employer] insurance. Medication: Mavyret Formulation: Tablet Dosage: 84 tabs for 28ds ID: [id number] BIN:[id number] PCN:[id number] Phone: [phone] Target ship date is n/a. Thank you very much, Tracy Hammond Behaviorist, [facility] 06/12/2023 9:24 AM * Telephone Encounter - Gladis Rider OSA - 06/12/2023 8:57 AM EST Please confirm insurance needing auth. This was denied in April for needing PA through [employer] but denied due to patient having part D. I see patient has [employer] was this ran under that plan? Please respond back to [phone]. Thank you! Gladis Rider Freedom Of Information Officer [facility] 06/12/2023,8:58 AM * Telephone Encounter - Cachorro Hammond technology instructor - 06/09/2023 8:52 AM EST New or re-auth: new Patient Jame Villalobos needs a prior authorization for a medication through their [employer] insurance. Medication: Mavyret Formulation: Tablet Dosage: 84 tabs for 28ds ID: [id number] BIN:[id number] PCN:[id number] Target ship date is n/a. Thank you very much, Tracy Hammond Behaviorist, [facility] 06/09/2023 8:53 AM documented in this encounter Plan of Treatment Upcoming Encounters Date Type Department Care Team (Late st Contact Info) Description 09/15/2023 2:00 PM EDT Telemedicine Psychiatry, [facility] [address] [place] [address] Tamra Crooks MD [address] [place] [address] 09/16/2023 7:00 AM EDT Pharmacy Hepatology, [facility] [address] [place] [address] [facility], Pharmacist Hepatology [address] [place] [address] 03/02/2024 2:20 PM EDT Office Visit Family [address] [phone] Freddy Olivera MD [address] [place] [phone] Health Maintenance Due Date Last Done [...] 02/01/2015, Additional history exists GFR 08/11/2024 08/12/2023, 080 07/2022, 02/06/2022, Additional history exists Albumin/Creatinine Ratio 05/27/2026 05/27/2023 Diabetes Screening 08/11/2026 08/12/2023, 0 12/05/2022, 02/06/2022, Additional history exists Lipid Panel 02/06/2027 02/06/2022, 0 09/2018, 11/03/2015, Additional history exists RETIRED - [...] Documents on File Type Date Recorded Patient 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
--- OUTSIDE RECORDS SUMMARY | 2023-12-25 08:29 | External Medical Summary | Summary of Care ---
Author Name Unknown Organization [facility] Address [address] [place] [address] Phone [phone] Care Team Providers Care Morning News Anchor Name Role Phone Davi Valencia Primary Care Provid er Reason for Visit * - Authorized Specialty Diagnoses / Procedures Referred By Akshat t Referred To Contact Referral ID Status Reason Start Date Expiration Date V isits Requested Visits Authorized [id number] Authorized 06/05/2023 06/03/2024 [id number] Encounter Details Date Type Department Care Team (Late st Contact Info) Description 09/15/2023 2:00 PM EDT [facility] [address] [place] [address] Tamra Crooks MD [address] [place] [address] Major depressive disorder, recurrent episode, moderate (HCC)*; Generalized anxiety disorder; Psychosis, unspecified psychosis type (HCC); Mood disorder (HCC); Severe dementia associated with alcoholism, with psychotic disturbance (HCC) Allergies No known active allergiesdocumented as of this encounter (statuses as of 09/15/2023) Medications Medication Sig Dispensed Refills Start Date End Date Status ASPIRIN 81 MG PO TABS Take by mouth daily. 0 Active amLODIPine Besylate 10 MG Oral Tablet (Norvasc)Indication s:Essential hypertension with goal blood pressure less than 130/85 TAKE 1 TABLET BY MOUTH EVERY DAY IN THE MORNING 30 Tablet 5 05/23/2023 Active Lisinopril 10 MG Oral Tablet (Prinivil)Indicatio [...] Active QUEtiapine Fumarate 200 MG Oral Tablet (SEROquel)Indicatio ns:Severe dementia associated with alcoholism, with psychotic disturbance (HCC) Take 1 Tablet by mouth at bedtime. 30 Tablet 2 09/15/2023 Active Citalopram Hydrobromide 10 MG Oral Tablet (CeleXA)Indications :Mood disorder (HCC) Take 1 Tablet by mouth in the morning. With breakfast. 30 Tablet 3 08/11/2023 09/15/2023 Discontinued (Refill) QUEtiapine Fumarate 300 MG Oral Tablet (SEROquel)Indicatio ns:Severe dementia associated with alcoholism, with psychotic disturbance (HCC) Take 1 Tablet by mouth at bedtime. 30 Tablet 3 08/11/2023 09/15/2023 Discontinued (Refill) documented as of this encounter (statuses as of 09/15/2023) Active Problems Problem Noted Date Diagnosed Date [...] as of this encounter (statuses as of 09/15/2023) Resolved Problems Problem Noted Date Diagnosed Date Resolved Date Unspecified dementia, unspec ified severity, without behavioral disturbance, psychotic disturbance, mood disturbance, and anxiety 04/04/2022 05/30/2023 HTN, goal below 140/80 05/11/201208/09 Erectile dysfunction 01/27/2012 022 Psoriatic arthropathy 08/01/20112017 documented as of this encounter (statuses as of 09/15/2023) Immunizations Name Administration Dates Next Due Pneumococcal Conjugate Vacci ne, 20-valent ([id number]) 12/10/2021 Pneumococcal Polysaccharide PPV23 (Pneumovax) 04/24/2012 Season [...] Progress Notes * Tamra Crooks MD - 09/15/2023 2:14 PM EDT OUTPATIENT PSYCHIATRY RETURN VISIT DIVISION OF PSYCHIATRY [address] [address] Name: Jame Villalobos : 1955 Date and Time Patient was Seen: 09/15/2023 at 2:14 PM After connecting through televideo, patient was verified with two unique identifiers. Patient (or authorized legal ict sales representative) was then informed that this was [...] that I have reviewed their record in [email or web address] and presented the opportunity for them to ask any questions regarding the visit today. The patient agreed to participate. Patient location: HOME. I was not in a hospital or clinic location. After connecting through televideo, patient was verified with two unique identifiers. Patient (or authorized legal ict sales representative) was then informed that this was [...] appointment. Pt said that he is doing the same since his last visit. He continues to be depressed and anxious most days, on and off, thinks about his sister most of the time and he is unable to let go and move onfrom not thinking about his sister. He feel "paranoid" that his sister will hurt him more. He is unable to "Let to go" and fixated on what his sister did. He does not talk to his sister and has no contact with her. He refuses to see or talk to her. He denied any other current stressors. He worries that her sister and her daughter will "put me away" or "take his house". He said that he is doing well and Ben and Em take good care of him. Ben said that he is doing pretty well most of the time. He continues to be "paranoid" about his sister and gets anxious when he thinks about her. He is able to redirected better and they try to keep him busy. Psychiatric ROS Sleep: Good, 8 hours, feels rested Appetite: Good Suicidal ideation: Denied Homicidal ideation: Denied Psychosis: None reported Jerrica: None reported PTSD: None reported Panic attacks: Nightmares most nights and wakes up most nights Memory issues: Some STM issues Side effects: None reported D+A Use Alcohol: None Nicotine: Smokes 1/2 pack of cigarettes daily Other substances: None Medical Issues Acute medical issues at present: None Last PCP Visit: 1 month ago, no issues MEDICAL REVIEW OF SYSTEMS: [...] DAY IN THE MORNING 30 Tablet 5 Lisinopril 10 MG Oral Tablet (Prinivil) TAKE 1 TABLET BY MOUTH EVERY DAY IN THE MORNING 90 Tablet 1 Thiamine HCl 100 MG Oral Tablet (vitamin B-1) TAKE 1 TABLET BY MOUTH EVERY MORNING 90 Tablet 1 Donepezil HCl 10 MG Oral Tablet (Aricept) Take 1 Tablet by mouth daily with dinner. 30 Tablet 3 Citalopram Hydrobromide 10 MG Oral Tablet (CeleXA) Take 1 Tablet by mouth in the morning. With breakfast. 30 Tablet 3 QUEtiapine Fumarate 300 MG Oral Tablet (SEROquel) Take 1 Tablet by mouth at bedtime. 30 Tablet 3 Memantine HCl 5 MG Oral Tablet (Namenda) Take 1 Tablet by mouth 2 times a day with morning and evening meals. 60 Tablet 3 No current facility-administered medications for this visit. [...] DAY IN THE MORNING 30 Tablet 5 Lisinopril 10 MG Oral Tablet (Prinivil) TAKE 1 TABLET BY MOUTH EVERY DAY IN THE MORNING 90 Tablet 1 Thiamine HCl 100 MG Oral Tablet (vitamin B-1) TAKE 1 TABLET BY MOUTH EVERY MORNING 90 Tablet 1 Donepezil HCl 10 MG Oral Tablet (Aricept) Take 1 Tablet by mouth daily with dinner. 30 Tablet 3 Citalopram Hydrobromide 10 MG Oral Tablet (CeleXA) Take 1 Tablet by mouth in the morning. With breakfast. 30 Tablet 3 QUEtiapine Fumarate 300 MG Oral Tablet (SEROquel) Take 1 Tablet by mouth at bedtime. 30 Tablet 3 Memantine HCl 5 MG Oral Tablet (Namenda) Take 1 Tablet by mouth 2 times a day with morning and evening meals. 60 Tablet 3 No current facility-administered medications for this visit. 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 Resolved Tubular adenoma 08/12/2008 [...] BID Major depressive disorder, recurrent, moderate - Increase citalopram to 20 mg Po daily with breakfast Generalized anxiety disorder - Continue citalopram Psychotic disorder unspecified - Decrease quetiapine to 200 mg PO HS, due to increased weight. T/c risperidone for his psychosis and Seroquel is not helping with psychosis Laboratory tests: None Therapy: None RTC: in [...] above medication management: 17 minutes Billing code: 47386 and [id number] TREATMENT PLAN: DATE PROBLEM STATUS (New, Stable, Improved, etc.) INTERVENTIONS 09/15/2023 Memory issues Stable Medication management Depression Improving Anxiety Improving Psychosis Improving This treatment plan was most recently reviewed and discussed with the patient on the date(s) listedabove. He and/or family had the opportunity to ask questions and agreed with the treatment plan andcourse of care on that date. Tamra Crooks MD Psychiatrist, [facility] 09/15/2023 documented in this encounter Plan of Treatment Upcoming Encounters Date Type Department Care Team (Late st Contact Info) Description 09/16/2023 7:00 AM EDT Pharmacy Hepatology, [place] [address] [place] [address] [place], Pharmacist Hepatology [address] [place] [address] 10/28/2023 12:30 PM EDT Telemedicine Psychiatry [facility] [address] [place] [phone] Tamra Crooks MD [address] [place] [address] 03/02/2024 2:20 PM EDT Office Visit Family [address] [phone] Freddy Olivera MD [address] [place] [phone] Health Maintenance Due Date Last Done Comments Cologuard 1999 Fecal Occult Blood Test 1999 Sigmoidoscopy 1999 Lung Cancer Screening 2004 Zoster Vaccines (1 of 2) 2004 Colonoscopy 02/09/2019 02/09/2014, 08/12/2008 Colorectal Cancer Screening 02/09/2019 DTaP,Tdap,and Td Vaccines (2 - Td or Tdap) 08/08/2019 08/07/2009 *BASELINE EKG FOR HTN 02/12/2022 COVID-19 Vaccine ( season) 2023 Influenza Vaccine (FLU shot) (Season Ended) 2024 03/12/2019, 07/10/2016, 02/01/2015, Additional history exists GFR 08/11/2024 08/12/2023, 07/2022, 02/06/2022, Additional history [...] anxiety disorder Psychosis, unspecified psychosis type (HCC) Mood disorder (HCC) Unspecified episodic mood disorder Severe dementia associated with alcoholism, with psychotic disturbance (HCC) documented in this encounter Advance Directives Documents on File Type Date Recorded Patient 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
--- OUTSIDE RECORDS SUMMARY | 2023-12-25 08:29 | External Medical Summary | Summary of Care ---
Author Name Unknown Organization [facility] Address [address] [place] [address] Phone [phone] Care Team Providers Care Costume Shop Manager Name Role Phone DaxmaeganDavi DO Primary Care Provid er Reason for Visit * Reason Comments Dosage Adjustment Via Phone (anticoag Cl inic) Status Check Encounter Details Date Type Department Care Team (Late st Contact Info) Description 09/16/2023 7:00 AM EDT Pharmacy Hepatology, [place] [address] [place], [place] [phone] [place], Pharmacist Hepatology [address] [place], [place] [phone] Chronic hepatitis C without hepatic coma (HCC)* Allergies No known active allergiesdocumented as of this encounter (statuses as of 09/16/2023) Medications Medication Sig Dispensed Refills Start Date [...] as of this encounter (statuses as of 09/16/2023) Active Problems Problem Noted Date Diagnosed Date [...] as of this encounter (statuses as of 09/16/2023) Resolved Problems Problem Noted Date Diagnosed Date Resolved Date Unspecified dementia, unspec ified severity, without behavioral disturbance, psychotic disturbance, mood disturbance, and anxiety 04/04/2022 05/30/2023 HTN, goal below 140/80 05/11/201208/09 Erectile dysfunction 01/27/2012 022 Psoriatic arthropathy 08/01/20112017 documented as of this encounter (statuses as of 09/16/2023) Immunizations Name Administration Dates Next Due Pneumococcal Conjugate Vacci ne, 20-valent ([id number]) 12/10/2021 Pneumococcal Polysaccharide PPV23 (Pneumovax) 04/24/2012 Season [...] as of this encounter Progress Notes * Xin Russell, [facility] - 09/16/2023 3:41 PM EDT MTM Hepatitis C Pre-Treatment Follow-Up Patient Name: Jame Villalobos History of Current Illness: Jame Villalobos is a 68 year old male with chronic Hepatitis C, genotype 1b, F2-F3 , last seen in the Hepatology clinic on 02/03/2023. Patient is in the pre- treatment phase of Hepatitis C treatment. This is a follow-up phone call to again discuss the patient's status. Treatment Overview: Physician initiating therapy: Juan Cruz MD/Lizabeth Calderon, DO Treatment plan: Mavyret for 8 weeks. Were you able to contact the patient? I called the mobile phone and spoke with Ben. He stated theyare still in the process of finding housing. He declined any further phone calls stating once the patient is ready for treatment he will call. I confirmed he has my phone number. MTM Plan: No further follow-up at this time, until a return call is received stating the patient is interested in proceeding with treatment at that time. Xin Russell, PharmD, [facility] Clinical Pharmacist, Hepatology 09/16/2023 3:41 PM documented in this encounter Plan of Treatment Upcoming Encounters Date Type Department Care Team ([facility] st Contact Info) Description 10/28/2023 12:30 PM EDT Telemedicine Psychiatry [facility] [address] [place] [phone] Tamra Crooks MD [address] [place] [address] 03/02/2024 2:20 PM EDT Office Visit [address] [phone] Freddy Olivera MD [address] [place] [phone] Health Maintenance Due Date Last Done Comments Cologuard 1999 Fecal Occult Blood Test 1999 Sigmoidoscopy 1999 Lung Cancer Screening 2004 Zoster Vaccines (1 of 2) 2004 Colonoscopy 02/09/2019 02/09/2014, 08/12/2008 Colorectal Cancer Screening 02/09/2019 DTaP,Tdap,and Td Vaccines (2 - Td or Tdap) 08/08/2019 08/07/2009 *BASELINE EKG FOR HTN 02/12/2022 COVID-19 Vaccine (1 - 2022- season) 2023 Influenza Vaccine (FLU shot) (Season [...] as of this encounter Visit Diagnoses Diagnosis Chronic hepatitis C without hepatic coma (HCC)- Primary Chronic hepatitis C without mention of hepatic coma documented in this encounter Advance Directives Documents on File Type Date Recorded Patient Business Solutions Consultant Expl anation Power of Call Center Consultant 02/22/2019 POWER OF A TTORNEY - LIVING WILL Care Teams Costume Shop Manager Relationship Specialty Start Date End Date Davi Valencia DO [address] [place] [phone] PCP - General Internal Medicine 12/10/21 documented as of this encounter
--- OUTSIDE RECORDS SUMMARY | 2023-12-25 08:29 | External Medical Summary | Summary of Care ---
Author Name Unknown Organization [facility] Address [address] [place] [address] Phone [phone] Care Team Providers Care Oil Pipe Inspector Helper Name Role Phone DaxmaeganDaviothy Primary Care Provid er Reason for Visit * Reason Onset Date Comments Appointment 10/28/2023 Colonoscopy Encounter Details Date Type Department Care Team (Late st Contact Info) Description 10/28/[address] [facility] [address] [place] [address] Specified, Garretz No Resource [address] [place] [address] Appointment (Colonoscopy ) Allergies No known active allergiesdocumented as of this encounter (statuses as of 10/28/2023) Medications Medication Sig Dispensed Refills Start Date [...] evening meals. 60 Tablet 3 10/28/2023 Active QUEtiapine Fumarate 100 MG Oral Tablet (SEROquel)Indications: Severe dementia associated with alcoholism, with psychotic disturbance (HCC) Take 1 Tablet by mouth at bedtime. 30 Tablet 1 10/28/2023 Active documented as of this encounter (statuses as of 10/28/2023) Active Problems Problem Noted Date Diagnosed Date [...] as of this encounter (statuses as of 10/28/2023) Resolved Problems Problem Noted Date Diagnosed Date Resolved Date Unspecified dementia, unspec ified severity, without behavioral disturbance, psychotic disturbance, mood disturbance, and anxiety 04/04/2022 05/30/2023 HTN, goal below 140/80 05/11/201208/09 Erectile dysfunction 01/27/2012 022 Psoriatic arthropathy 08/01/20112017 documented as of this encounter (statuses as of 10/28/2023) Immunizations Name Administration Dates Next Due Pneumococcal Conjugate Vacci ne, 20-valent ([id number]) 12/10/2021 Pneumococcal Polysaccharide PPV23 (Pneumovax) 04/24/2012 Season Influenza, Cell Cultu re, 18+ Yrs, With Preserv (Flucelvax) 04/20/2013 Seasonal Influenza, PF, 6 M & above, IM , (FluLaval or Fluzone) 03/12/2019 Seasonal Influenza, Quadriva lent, No Preserve, IM 07/10/2016,02/01/2015 Seasonal Influenza, Split, I IV3, With Preserve, Inj 01/05/2014,01/27/2012 TDAP (age 10 and older)(Boostrix) 08/07/2009 TDAP, Age 7 and older, IM (Adacel) 12/01/2008(De laurad: Patient Refused) documented as of this encounter [...] encounter Miscellaneous Notes * Telephone Encounter - Victoria Reid OSA - 10/28/2023 1:04 PM EDT Pt calling in wanting to know if the pt can be scheduled in [place] for his colonoscopy sooner than 03/05 with us here at [facility]. documented in this encounter Plan of Treatment Upcoming Encounters Date Type Department Care Team (Late st Contact Info) Description 12/01/2023 2:30 PM EDT Telemedicine Psychiatry [facility] [address] [place] [phone] Tamra Crooks MD [address] [place] [phone] 03/02/2024 2:20 PM EDT Office Visit [facility] [address] [place] [address] Freddy Olivera MD [address] [place] [address] 03/05/2024 Hospital Encounter [facility] End[facility] [address] [phone] Mathew Lang MD [address] [place] [id number] Scheduled Procedures Name Priority Associated Diagnoses Date/Ti me COLONOSCOPY FLEXIBLE PROXIMA L DIAGNOSTIC Screening for colon cancer Health Maintenance Due Date Last Done Comments Fecal Occult Blood Test 1999 Sigmoidoscopy 1999 Lung Cancer Screening 2004 Zoster Vaccines (1 of 2) 2004 Colonoscopy 02/09/2019 02/09/2014, 08/12/2008 DTaP,Tdap,and Td Vaccines (2 - Td or Tdap) 08/08/2019 08/07/2009 *BASELINE EKG FOR HTN 02/12/2022 COVID-19 Vaccine ( - 2022- season) 2023 Colorectal Cancer Screening 09/24/2023 Influenza Vaccine (FLU shot) (Season Ended) 2024 03/12/2019, 07/10/2016, 02/01/2015, Additional history exists Depression Monitoring 05/27/2024 05/27/2023 GFR 08/11/2024 08/12/2023, 0807/2022, 02/06/2022, Additional history exists Albumin/Creatinine Ratio 05/27/2026 05/27/2023 Diabetes Screening 08/11/2026 08/12/2023, 0 12/05/2022, 02/06/2022, Additional history exists Cologuard 09/22/2026 09/23/2023, 09/02, 09/12/2023 Lipid Panel 02/06/2027 02/06/2022, 0109/2018, 11/03/2015, [...] Documents on File Type Date Recorded Patient Publications Writer Expl anation Power of Soft Drink Powder Mixer 02/22/2019 POWER OF A TTORNEY - LIVING WILL Care Teams Oil Pipe Inspector Helper Relationship Specialty Start Date End Date Davi Valencia DO [address] [place] [id number] PCP - General Internal Medicine 12/10/21 documented as of this encounter
--- OUTSIDE RECORDS SUMMARY | 2023-12-25 08:29 | External Medical Summary | Summary of Care ---
Author Name Unknown Organization [facility] Address [address] [place] [address] Phone [phone] Care Team Providers Care Lap Regulator Name Role Phone Davi Valencia Primary Care Provid er Reason for Visit * - Authorized Specialty Diagnoses / Procedures Referred By Akshat t Referred To Contact Referral ID Status Reason Start Date Expiration Date V isits Requested Visits Authorized [id number] Authorized 06/05/2023 06/03/2024 [id number] Encounter Details Date Type Department Care Team (Late st Contact Info) Description 10/28/2023 12:30 PM EDT Telemedicine Psychiatry [facility] [address] [place] [address] Tamra Crooks MD [address] [place] [address] Major depressive disorder, recurrent episode, moderate (HCC)*; Generalized anxiety disorder; Mood disorder (HCC); Psychosis, unspecified psychosis type (HCC); Severe dementia associated with alcoholism, with [...] at bedtime. 30 Tablet 1 10/28/2023 Active Donepezil HCl 10 MG Oral Tablet (Aricept)Indication s:Severe dementia associated with alcoholism, with psychotic disturbance (HCC) Take 1 Tablet by mouth daily with dinner. 30 Tablet 3 08/11/2023 10/28/2023 Discontinued (Refill) Memantine HCl 5 MG Oral Tablet (Namenda) Take 1 Tablet by mouth 2 times a day with morning and evening meals. 60 Tablet 3 08/11/2023 10/28/2023 Discontinued (Refill) Citalopram Hydrobromide 20 MG Oral Tablet (CeleXA)Indications :Mood disorder (HCC) Take 1 Tablet by mouth in the morning. With breakfast. 30 Tablet 3 09/15/2023 10/28/2023 Discontinued (Refill) QUEtiapine Fumarate 200 MG Oral Tablet (SEROquel)Indicatio ns:Severe dementia associated with alcoholism, with psychotic disturbance (HCC) Take 1 Tablet by mouth at bedtime. 30 Tablet 2 09/15/2023 10/28/2023 Discontinued (Refill) documented as of this encounter [...] Next Due Pneumococcal Conjugate Vacci ne, 20-valent ([id number]) 12/10/2021 Pneumococcal Polysaccharide PPV23 (Pneumovax) 04/24/2012 Season [...] Progress Notes * Tamra Crooks MD - 10/28/2023 12:37 PM EDT OUTPATIENT PSYCHIATRY RETURN VISIT DIVISION OF PSYCHIATRY [address] [address] Name: Jame Villalobos : 1955 Date and Time Patient was Seen: 10/28/2023 at 12:37 PM After connecting through televideo, patient was verified with two unique identifiers. Patient (or authorized legal artist's representative) was then informed that this was [...] that I have reviewed their record in [facility] and presented the opportunity for them to ask any questions regarding the visit today. The patient agreed to participate. Patient location: HOME. I was not in a hospital or clinic location. After connecting through televideo, patient was verified with two unique identifiers. Patient (or authorized legal artist's representative) was then informed that this was [...] his last visit. He said that he is less depressed and less anxious in the last few weeks. He said that he is upset with the situation with his sister and he denied any other issues currently. He said that Ben and Em are taking good care of him and maintaining his house well. He enjoys writing songs and playing piano and string instruments. Em said that he is doing better since his last visit and less preoccupied with his sister. He is scared of being alone at his house and he spends more time with them. They are planning to get a bigger house so they can all move in together. She denied nay other concerns. He is not able to walklong distances. Psychiatric ROS Sleep: Good, 8 hours, feels rested Appetite: Good Suicidal ideation: Denied Homicidal ideation: Denied Psychosis: None reported Jerrica: None reported PTSD: None reported Panic attacks: Nightmares and wakes up at times Memory issues: Some STM issues Med compliance: Good Side effects: None reported D+A Use Alcohol: None Nicotine: Smokes 1/2 pack of cigarettes daily Other substances: None Medical Issues Acute medical issues at present: None Last PCP Visit: 1 months ago, no issues MEDICAL REVIEW OF [...] morning and evening meals. 60 Tablet 3 Citalopram Hydrobromide 20 MG Oral Tablet (CeleXA) Take 1 Tablet by mouth in the morning. With breakfast. 30 Tablet 3 QUEtiapine Fumarate 200 MG Oral Tablet (SEROquel) Take 1 Tablet by mouth at bedtime. 30 Tablet 2 Lisinopril 10 MG Oral Tablet (Prinivil) TAKE 1 TABLET BY MOUTH EVERY DAY IN THE MORNING 90 Tablet 1 No current facility-administered medications for [...] morning and evening meals. 60 Tablet 3 Citalopram Hydrobromide 20 MG Oral Tablet (CeleXA) Take 1 Tablet by mouth in the morning. With breakfast. 30 Tablet 3 QUEtiapine Fumarate 200 MG Oral Tablet (SEROquel) Take 1 Tablet by mouth at bedtime. 30 Tablet 2 Lisinopril 10 MG Oral Tablet (Prinivil) TAKE 1 TABLET BY MOUTH EVERY DAY IN THE MORNING 90 Tablet 1 No current facility-administered medications for [...] Psychotic disorder unspecified - Decrease quetiapine to 100 mg PO HS, due to increased weight. There as been no change in his sleep. T/c risperidone for his psychosis and Seroquel is not helping with psychosis. Laboratory tests: None Therapy: None RTC: in [...] above medication management: 17 minutes Billing code: 84705 and [id number] Tamra Crooks MD Psychiatrist, [facility] 10/28/2023 documented in this encounter Plan of Treatment Upcoming Encounters Date Type Department Care Team (Late st Contact Info) Description 12/01/2023 2:30 PM EDT Telemedicine Psychiatry [facility] [place], [place] [address] [place] [address] Tamra Crooks MD [address] [place] [address] 03/02/2024 2:20 PM EDT Office Visit [facility] [address] [place] [address] Freddy Olviera MD [address] [place] [address] 03/05/2024 Hospital Encounter [facility], Endoscopy [facility] [address] [place] [address] Mathew Lang MD [address] [place] [address] Scheduled Procedures Name Priority Associated Diagnoses Date/Ti [...] - 2022- season) 2023 Colorectal Cancer Screening 09/13/2023 Influenza Vaccine (FLU shot) (Season Ended) 2024 03/12/2019, 07/10/2016, 02/01/2015, Additional history exists Depression Monitoring 05/27/2024 05/27/2023 GFR 08/11/2024 08/12/2023, 08/0 07/2022, 02/06/2022, Additional history exists Albumin/Creatinine Ratio 05/27/2026 05/27/2023 Diabetes Screening 08/11/2026 08/12/2023, 0 12/05/2022, 02/06/2022, Additional history exists Cologuard 09/11/2026 09/12/2023, 09/12/2023 Lipid Panel 02/06/2027 02/06/2022, 09/2018, 11/03/2015, [...] disorder, recurrent episode, moderate Generalized anxiety disorder Mood disorder (HCC) Unspecified episodic mood disorder Psychosis, 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
--- OUTSIDE RECORDS SUMMARY | 2023-12-25 08:29 | External Medical Summary | Summary of Care ---
Author Name Unknown Organization [facility] Address [address] [place] [facility] [place] [place] [address] Phone [phone] Care Team Providers Care Industrial Design Engineer Name Role Phone Daxmaegan Davi Cheungothy Primary Care Provid er Reason for Visit * Reason Onset Date Comments Preop Pt Assessment 12/10/2023 COMPLIANCE INVESTIGATOR to revi ew Encounter Details Date Type Department Care Team (Late st Contact Info) Description 12/10/2023 Telephone [facility] [address] [place] [address] Britt Cameron DO [address] [place] [address] Preop Pt Assessment (COMPLIANCE INVESTIGATOR to review) Allergies No known active allergiesdocumented [...] Next Due Pneumococcal Conjugate Vacci ne, 20-valent ([id number]) 12/10/2021 Pneumococcal Polysaccharide PPV23 (Pneumovax) 04/24/2012 Season [...] Sol RN - 12/10/2023 12:12 PM EDT COMPLIANCE INVESTIGATOR to review chart prior to PAT assessment. Noted hx dementia, chronic alcohol abuse, takes psychmeds, current smoker. May not meet GEM criteria. documented in this encounter Plan of Treatment Upcoming Encounters Date Type Department Care Team (Late st Contact Info) Description 12/16/2023 10:25 AM EDT Procedure Only [facility] [place] [address] [place] [address] Britt Cameron DO [address] [place] [address] 01/09/2024 2:30 PM EDT Telemedicine Psychiatry [facility] [address] [address] Tamra Crooks MD [address] [facility] [place] [address] 03/02/2024 2:20 PM EDT Office Visit [facility] [address] [place] [address] Freddy Olivera MD [address] [place] [address] Health Maintenance Due Date Last Done [...] 09/23/2023, 09/02, 09/12/2023 Lipid Panel 02/06/2027 02/06/2022, 010 09/2018, 11/03/2015, Additional history exists RETIRED - [...] Documents on File Type Date Recorded Patient Circulation Supervisor Expl anation Power of Muck Miner 02/22/2019 POWER OF A TTORNEY - LIVING WILL Care Teams Industrial Design Engineer Relationship Specialty Start Date End Date Davi Valencia DO [address] [place] [phone] PCP - General Internal Medicine 12/10/21 documented as of this encounter
--- OUTSIDE RECORDS SUMMARY | 2023-12-25 08:29 | External Medical Summary | Summary of Care ---
Author Name Unknown Organization [facility] Address [address] [place] [address] Phone [phone] Care Team Providers Care Chocolate Coater Name Role Phone DaxmaeganDaviothy Primary Care Provid er Reason for Visit * Reason Onset Date Comments Appointment 10/28/2023 Colonoscopy Encounter Details Date Type Department Care Team (Late st Contact Info) Description 10/28/2023 [facility]phone [facility] [address] [place] [address] Specified, Garretz No Resource [address] [place] [address] Appointment (Colonoscopy ) Allergies No [...] Next Due Pneumococcal Conjugate Vacci ne, 20-valent ([id number]) 12/10/2021 Pneumococcal Polysaccharide PPV23 (Pneumovax) 04/24/2012 Season [...] encounter Miscellaneous Notes * Telephone Encounter - Ethel Lambert LPN - 10/28/2023 1:53 PM EDT Indication for study COLON INSURANCE Medicare [facility] insurance NOT accepted by [employer] and [employer] Medicare are accepted ONLY in [place] and ONLY with providers Bernice Pavon Fabian) Has procedure order been received OR is it a recall ORDER Screening questions BMI greater than 45? No Who is your PCP/ Family doctor? [place] Any problems getting around? NO Any head or chest cold within the last 2 week or on an antibiotic? NO Any hx of seizures/strokes within the last 90 days? NO Is the patient on Dialysis or have chronic renal failure? NO (choose prep accordingly,GFR< 40 needs hospital) Has the patient had a recent cardiac event (heart attack, heart surgery, chest pain, irregular heart rhythm)? NO Is the patient taking any blood thinning or anti-platelet medications? NO What is the name of the medication? NO Who prescribes this for you? NO Does the patient have a defibrillator, pacemaker, stimulators or any other implantable devices? NO (must be done in hospital setting) Is the patient on home oxygen? NO Does the patient have sleep apnea? NO Is the patient a poorly controlled diabetic? NO If yes, what medications do they take for this? NO (IF INSULIN DEPENDENT EARLY AM appt) Has the patient had problems with intubation or anesthesia in the past? No Does the patient have a family history of malignant hyperthermia? NO Regarding Prep: Is the patient prone to constipation, have "sluggish" bowels? NO (If YES, choose extended prep) Preassessment Nurse Status: Pt scheduled for colon on 12/16/23 at 10:25 GEM with Nisha. Miralax prep mailed. * Telephone Encounter - Victoria Reid OSA - 10/28/2023 1:04 PM EDT Pt calling in wanting to know if the pt can be scheduled in [place] for his colonoscopy sooner than 03/05 with us here at [facility]. documented in this encounter Plan of Treatment Upcoming Encounters Date Type Department Care Team (Late st Contact Info) Description 12/01/2023 2:30 PM EDT Telemedicine Psychiatry [facility] [address] [place] [phone] Tamra Crooks MD [address] [place] [address] 12/16/2023 10:25 AM EDT Procedure Only [facility] [place] [address] [place] [phone] Britt Cameron DO [address] [place] [address] 03/02/2024 2:20 PM EDT Office Visit [facility] [address] [place] [address] Freddy Olivera MD [address] [place] [address] 03/05/2024 Hospital Encounter [facility], Endoscopy Room [facility] [address] [place] [phone] Mathew Lang MD [address] [place] [address] Scheduled Procedures Name Priority Associated Diagnoses Date/Ti [...] 02/06/2022, Additional history exists Cologuard 09/22/2026 09/23/2023, 05, 09/12/2023 Lipid Panel 02/06/2027 02/06/2022, 01/0 09/2018, 11/03/2015, Additional history exists RETIRED - [...] Documents on File Type Date Recorded Patient Account Leader Expl anation Power of Kelp Gatherer 02/22/2019 POWER OF A TTORNEY - LIVING WILL Care Teams Chocolate Coater Relationship Specialty Start Date End Date Davi Valencia DO [address] [place] [phone] PCP - General Internal Medicine 12/10/21 documented as of this encounter
--- OUTSIDE RECORDS SUMMARY | 2023-12-25 08:29 | External Medical Summary | Summary of Care ---
Author Name Unknown Organization [facility] Address [address] [facility] [place] [address] Phone [phone] Care Team Providers Care Lsw Name Role Phone Davi Mitchell DO Primary Care Provid er Reason for Visit * Reason Comments eRx-Medication Refill Encounter Details Date Type Department Care Team ([facility] Contact Info) Description 12/21/[address] [address] Davi Mitchell DO [address] [place] [phone] Essential hypertension with goal blood pressure less than 130/85 Allergies No known active allergiesdocumented as of this encounter (statuses as of 12/21/2023) Medications Medication Sig Dispensed Refills Start Date End Date Status ASPIRIN 81 MG PO TABS Take by mouth daily. Active Thiamine HCl 100 MG Oral Tablet (vitamin B-1)Indications:Hi story of alcohol use disorder TAKE 1 TABLET BY MOUTH EVERY MORNING 90 Tablet 1 06/23/2023 Active Lisinopril 10 MG Oral Tablet (Prinivil)Indicati [...] at bedtime. 30 Tablet 3 12/01/2023 Active amLODIPine Besylate 10 MG Oral Tablet (Norvasc)Indicatio ns:Essential hypertension with goal blood pressure less than 130/85 TAKE 1 TABLET BY MOUTH EVERY DAY IN THE MORNING 90 Tablet 2 12/21/2023 Active amLODIPine Besylate 10 MG Oral Tablet (Norvasc)Indicatio ns:Essential hypertension with goal blood pressure less than 130/85 TAKE 1 TABLET BY MOUTH EVERY DAY IN THE MORNING 30 Tablet 5 05/23/2023 12/21/2023 Discontinued documented as of this encounter (statuses as of 12/21/2023) Active Problems Problem Noted Date Diagnosed Date [...] as of this encounter (statuses as of 12/21/2023) Resolved Problems Problem Noted Date Diagnosed Date Resolved Date Unspecified dementia, unspec ified severity, without behavioral disturbance, psychotic disturbance, mood disturbance, and anxiety 04/04/2022 05/30/2023 HTN, goal below 140/80 05/11/201208/09 Erectile dysfunction 01/27/2012 022 Psoriatic arthropathy 08/01/20112017 documented as of this encounter (statuses as of 12/21/2023) Immunizations Name Administration Dates Next Due Pneumococcal Conjugate Vacci ne, 20-valent ([id number]) 12/10/2021 Pneumococcal Polysaccharide PPV23 (Pneumovax) 04/24/2012 Season [...] encounter Miscellaneous Notes * Telephone Encounter - Sommer Ayala [facility] - 12/21/2023 10:30 AM EDTSigned Prescriptions: Disp Refills amLODIPine Besylate 10 MG Oral Tablet (Nor*90 Tab*2 Sig: TAKE 1 TABLET BY MOUTH EVERY DAY IN THE MORNINGAuthorizing Provider: DAVI MITCHELL User: SOMMER AYALA documented in this encounter Plan of Treatment Upcoming Encounters Date Type Department Care Team (Late st Contact Info) Description 01/09/2024 2:30 PM EDT Telemedicine Psychiatry [facility] [address] [address] Tamra Crooks MD [address] [place] [address] 03/02/2024 2:20 PM EDT Office Visit [facility] [address] [place] [address] Freddy Olivera MD [address] [place] [address] Health Maintenance Due Date Last Done Comments Fecal Occult Blood Test 1999 Sigmoidoscopy 1999 Lung Cancer Screening 2004 Zoster Vaccines (1 of 2) 2004 Colonoscopy 02/09/2019 02/09/2014, 08/12/2008 DTaP,Tdap,and Td Vaccines (2 - Td or Tdap) 08/08/2019 08/07/2009 Adult Wellness Visit 2020 *BASELINE EKG FOR HTN 02/12/2022 COVID-19 Vaccine (1 - 2022- season) 2023 Colorectal Cancer Screening [...] with goal blood pressure less than 130/85 documented in this encounter Advance Directives Documents on File Type Date Recorded Patient Pump Mechanic Expl anation Power of Breastfeeding Program Coordinator 02/22/2019 POWER OF A TTORNEY - LIVING WILL Care Teams Lsw Relationship Specialty Start Date End Date Davi Mitchell DO [address] [place] [id number] PCP - General Internal Medicine 12/10/21 documented as of this encounter
--- OUTSIDE RECORDS SUMMARY | 2023-12-25 08:29 | External Medical Summary | Summary of Care ---
Author Name Unknown Organization [facility] Address [address] [place] [address] Phone [phone] Care Team Providers Care Director Of Marketing Name Role Phone Daxmaegan Davi Cheungothy Primary Care Provid er Reason for Visit * Reason Onset Date Comments Preop Pt Assessment 12/10/2023 COMMERCIAL CONSTRUCTION ESTIMATOR to revi ew Encounter Details Date Type Department Care Team (Late st Contact Info) Description 12/10/2023 Telephone [facility] [address] [place] [address] Britt Cameron DO [address] [place] [address] Preop Pt Assessment (COMMERCIAL CONSTRUCTION ESTIMATOR to review) Allergies No known active allergiesdocumented as of this encounter (statuses as of 12/12/2023) Medications Medication Sig Dispensed Refills Start Date [...] as of this encounter (statuses as of 12/12/2023) Active Problems Problem Noted Date Diagnosed Date [...] as of this encounter (statuses as of 12/12/2023) Resolved Problems Problem Noted Date Diagnosed Date Resolved Date Unspecified dementia, unspec ified severity, without behavioral disturbance, psychotic disturbance, mood disturbance, and anxiety 04/04/2022 05/30/2023 HTN, goal below 140/80 05/11/201208/09 Erectile dysfunction 01/27/2012 022 Psoriatic arthropathy 08/01/20112017 documented as of this encounter (statuses as of 12/12/2023) Immunizations Name Administration Dates Next Due Pneumococcal Conjugate Vacci ne, 20-valent ([id number]) 12/10/2021 Pneumococcal Polysaccharide PPV23 (Pneumovax) 04/24/2012 Season [...] Telephone Encounter - Lor Ta OSA - 12/12/2023 12:46 PM EDT Checking with PAT if pt can be done at . * Telephone Encounter - Paz Sol RN - 12/10/2023 2:16 PM EDT Chart reviewed by COMMERCIAL CONSTRUCTION ESTIMATOR. Pt will need to be rescheduled to hospital setting. Called pt to explain need to reschedule colon from [facility]. Spoke with caregivers. Both verbalized understanding. Request procedure to be performed at [facility] as previously planned. * Telephone Encounter - Paz Sol RN - 12/10/2023 12:12 PM EDT COMMERCIAL CONSTRUCTION ESTIMATOR to review chart prior to PAT assessment. Noted hx dementia, chronic alcohol abuse, takes psychmeds, current smoker. May not meet G[facility] criteria. documented in this encounter Plan of Treatment Upcoming Encounters Date Type Department Care Team (Late st Contact Info) Description 01/09/2024 2:30 PM EDT Telemedicine Psychiatry [place] [address] [place] [place] [phone] Tamra Crooks MD [address] 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
--- OUTSIDE RECORDS SUMMARY | 2023-12-25 08:29 | External Medical Summary | Summary of Care ---
Author Name Unknown Organization [facility] Address [address] [place] [facility] [place] [address] Phone [phone] Care Team Providers Care Corporate Coordinator Name Role Phone DaxmaeganDaviothy Primary Care Provid er Reason for Visit * Reason Onset Date Comments Appointment 09/01/2023 Could not leave message Encounter Details Date Type Department Care Team (Late st Contact Info) Description 09/01/2023 [facility] [address] [place] [address] Beto Dhaliwal MD [address] [place] [address] Appointment (Could not leave message) Allergies No known active allergiesdocumented as of this encounter (statuses as of 09/01/2023) Medications Medication Sig Dispensed Refills Start Date [...] with dinner. 30 Tablet 3 08/11/2023 Active Citalopram Hydrobromide 10 MG Oral Tablet (CeleXA)Indications:Mo od disorder (HCC) Take 1 Tablet by mouth in the morning. With breakfast. 30 Tablet 3 08/11/2023 Active QUEtiapine Fumarate 300 MG Oral Tablet (SEROquel)Indications: Severe dementia associated with alcoholism, with psychotic disturbance (HCC) Take 1 Tablet by mouth at bedtime. 30 Tablet 3 08/11/2023 Active Memantine HCl 5 MG Oral Tablet (Namenda) Take 1 Tablet by mouth 2 times a day with morning and evening meals. 60 Tablet 3 08/11/2023 Active documented as of this encounter (statuses as of 09/01/2023) Active Problems Problem Noted Date Diagnosed Date [...] as of this encounter (statuses as of 09/01/2023) Resolved Problems Problem Noted Date Diagnosed Date Resolved Date Unspecified dementia, unspec ified severity, without behavioral disturbance, psychotic disturbance, mood disturbance, and anxiety 04/04/2022 05/30/2023 HTN, goal below 140/80 05/11/201208/09 Erectile dysfunction 01/27/2012 022 Psoriatic arthropathy 08/01/20112017 documented as of this encounter (statuses as of 09/01/2023) Immunizations Name Administration Dates Next Due Pneumococcal Conjugate Vacci ne, 20-valent ([id number]) 12/10/2021 Pneumococcal Polysaccharide PPV23 (Pneumovax) 04/24/2012 Season [...] encounter Miscellaneous Notes * Telephone Encounter - Yadira Steel OSA - 09/01/2023 9:42 AM EDT Called to scheduled Hayden's colonoscopy appt for 02/2024 but could not leave a message documented in this encounter Plan of Treatment Upcoming Encounters Date Type Department Care Team (Late st Contact Info) Description 09/15/2023 2:00 PM EDT [facility] Psychiatry, [address] [address] Tamra Crooks MD [address] [place] [address] 09/16/2023 7:00 AM EDT Pharmacy Hepatology, [place] [address] [place] [address] [place], Pharmacist Hepatology [address] [place] [address] 03/02/2024 2:20 PM EDT Office Visit [facility] [address] [place] [address] Freddy Olivera MD [address] [place] [phone] Health Maintenance Due Date Last Done Comments Cologuard 1999 Fecal Occult Blood Test 1999 Sigmoidoscopy 1999 Lung Cancer Screening 2004 Zoster Vaccines (1 of 2) 2004 Colonoscopy 02/09/2019 02/09/2014, 08/12/2008 Colorectal Cancer Screening 02/09/2019 DTaP,Tdap,and Td Vaccines (2 - Td or Tdap) 08/08/2019 08/07/2009 *BASELINE EKG FOR HTN 02/12/2022 COVID-19 Vaccine ( - 2022- season) 2023 Influenza Vaccine (FLU [...] Documents on File Type Date Recorded Patient Palletizer Expl anation Power of Hat Sizer 02/22/2019 POWER OF A TTORNEY - LIVING WILL Care Teams Corporate Coordinator Relationship Specialty Start Date End Date Davi Valencia DO [address] [place] [address] PCP - General Internal Medicine 12/10/21 documented as of this encounter
--- OUTSIDE RECORDS SUMMARY | 2023-12-25 08:30 | External Medical Summary ---
Author Name Unknown Address Unknown Organization K01:[facility] - [address] [place] [address] Laboratory Report Ordering Provider Test Date Status PAULA GOMEZ 08/12/2023 11:58:11 Final Observation Date Value Abnormality Reference (Units ) Status Vitamin B12 08/12/2023 11:58:11 [phone] (pg/mL) Final Performing Location [facility] - [address] [place] [address]
--- OUTSIDE RECORDS SUMMARY | 2023-12-25 08:30 | External Medical Summary | Summary of Care ---
Author Name Unknown Organization [facility] Address [address] [facility] [place] [address] Phone [phone] Care Team Providers Care Rail Crew Member Name Role Phone Davi Valencia DO Primary Care Provid er Reason for Visit * Reason Onset Date Comments Med Request 08/26/2023 Encounter Details Date Type Department Care Team ([facility] st Contact Info) Description 08/26/[address] [phone] Davi Valencia DO [address] [place] [address] Med Request Allergies No known active allergiesdocumented as of this encounter (statuses as of 08/26/2023) Medications Medication Sig Dispensed Refills Start Date End Date Status ASPIRIN 81 MG PO TABS Take by mouth daily. 0 Active Sildenafil Citrate 100 MG Oral Tablet Take by mouth. 0 Active amLODIPine Besylate 10 MG Oral [...] as of this encounter (statuses as of 08/26/2023) Active Problems Problem Noted Date Diagnosed Date [...] as of this encounter (statuses as of 08/26/2023) Resolved Problems Problem Noted Date Diagnosed Date Resolved Date Unspecified dementia, unspec ified severity, without behavioral disturbance, psychotic disturbance, mood disturbance, and anxiety 04/04/2022 05/30/2023 HTN, goal below 140/80 05/11/201208/09 Erectile dysfunction 01/27/2012 022 Psoriatic arthropathy 08/01/20112017 documented as of this encounter (statuses as of 08/26/2023) Immunizations Name Administration Dates Next Due Pneumococcal Conjugate Vacci ne, 20-valent ([id number]) 12/10/2021 Pneumococcal Polysaccharide PPV23 (Pneumovax) 04/24/2012 Season [...] encounter Miscellaneous Notes * Telephone Encounter - Lizy Puente CPhT - 08/26/2023 11:00 AM EDT Pt calling to request Thiamine HCl 100 MG Oral Tablet (vitamin B-1) . Informed pt that RX is available at their pharmacy. Pt verbalized understanding and stated they will check with their pharmacy regarding this medication. Thank you, Scarlet Puente Sheep [facility] (Former[facility]) 08/26/2023,11:00 AM documented in this encounter Plan of Treatment Upcoming Encounters Date Type Department Care Team (Late st Contact Info) Description 08/27/2023 3:20 PM EDT Office Visit [facility] [address] [place] [phone] Annie Davi Cheungothy, [address] [place] [address] 09/15/2023 2:00 PM EDT Telemedicine Psychiatry, [place] [address] [place] [address] Tamra Crooks MD [address] [place] [phone] 09/16/2023 7:00 AM EDT Pharmacy Hepatology, [place] [address] [place], [place] [phone] [place], Pharmacist Hepatology [address] [place] [address] Health Maintenance Due Date Last Done Comments Lung Cancer Screening 2004 Zoster Vaccines (1 of 2) 2004 COLONOSCOPY-EVERY 5 YRS AGES 18-100 02/09/2019 02/09/2014, 08/12/2008 DTaP,Tdap,and Td Vaccines (2 [...] 02/06/2027 02/06/2022, 09/2018, 11/03/2015, Additional history exists Pneumococcal Vaccine: 65+ Years Completed 12/10/2021, 04/24/2012 [...] Documents on File Type Date Recorded 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
--- OUTSIDE RECORDS SUMMARY | 2023-12-25 08:30 | External Medical Summary ---
Author Name Unknown Address Unknown Organization : Laboratory Report Ordering Provider Test Date Status PAULA GOMEZ 08/12/2023 11:58:11 Final Observation Date Value Abnormality Reference (Units ) Status Thiamine [Moles/volume] in Blood 08/12/2023 11:58:11 467 Above high normal 78-185 (nmol/L) Final Vitamin supplementation with in 24 hours prior to
blood draw may affect the accuracy of the results.
This test was developed and its analytical performance
characteristics have been determined by [employer] [place], [place]. It has
not been cleared or approved by the U.S. Food and Drug
Administration. This assay has been validated pursuant
to the CLIA regulations and is used for clinical
purposes.

Test Performed at:
[facility]
[address] [facility]
[place], [place]
Ventura Andrade M.D., Ph.D.,Director of Laboratories Performing Location
--- OUTSIDE RECORDS SUMMARY | 2023-12-25 08:30 | External Medical Summary | Summary of Care ---
Author Name Unknown Organization [facility] Address [address] [place] [facility] [place] [address] Phone [phone] Care Team Providers Care Fruit Stuffer Name Role Phone ChristianoDavi morrison Primary Care Provid er Reason for Visit * Reason Onset Date Comments Appointment 08/29/2023 Encounter Details Date Type Department Care Team (Late st Contact Info) Description 08/29/2023 Telephone [facility] [address] [place] [address] Beto Dhaliwal MD [address] [place] [address] Appointment Allergies No known active allergiesdocumented as of this encounter (statuses as of 08/29/2023) Medications Medication Sig Dispensed Refills Start Date [...] as of this encounter (statuses as of 08/29/2023) Active Problems Problem Noted Date Diagnosed Date [...] as of this encounter (statuses as of 08/29/2023) Resolved Problems Problem Noted Date Diagnosed Date Resolved Date Unspecified dementia, unspec ified severity, without behavioral disturbance, psychotic disturbance, mood disturbance, and anxiety 04/04/2022 05/30/2023 HTN, goal below 140/80 05/11/201208/09 Erectile dysfunction 01/27/2012 022 Psoriatic arthropathy 08/01/20112017 documented as of this encounter (statuses as of 08/29/2023) Immunizations Name Administration Dates Next Due Pneumococcal Conjugate Vacci ne, 20-valent ([id number]) 12/10/2021 Pneumococcal Polysaccharide PPV23 (Pneumovax) 04/24/2012 Season [...] Telephone Encounter - Yadira Steel OSA - 08/29/2023 10:21 AM EDT Called Em Interiano (pt's rn allergy). She said that Hayden is a smoker and she is wondering if that will be an issue the morning of his procedure. She states she cannot prevent him from doing that. I told her that I would check with anesthesia and call her back. documented in this encounter Plan of Treatment Upcoming Encounters Date Type Department Care Team (Late st Contact Info) Description 09/15/2023 2:00 PM EDT Telemedicine Psychiatry, [place] [address] [place] [address] Tamra Crooks MD [address] [place] [phone] 09/16/2023 7:00 AM EDT Pharmacy Hepatology, [place] [address] [place] [address] [place], Pharmacist Hepatology [address] [place] [address] 03/02/2024 2:20 PM EDT Office Visit [address] [phone] Freddy Olivera MD [address] [place] [phone] Health Maintenance Due Date Last Done Comments Lung Cancer Screening 2004 Zoster Vaccines (1 of 2) 2004 COLONOSCOPY-EVERY 5 YRS AGES 18-100 02/09/2019 02/09/2014, 08/12/2008 DTaP,Tdap,and Td Vaccines (2 - Td or Tdap) 08/08/2019 08/07/2009 *BASELINE EKG FOR HTN 02/12/2022 COVID-19 Vaccine ( - season) 2023 Influenza Vaccine (FLU shot) (Season Ended) 2024 03/12/2019, 07/10/2016, 02/01/2015, Additional history exists GFR 08/11/2024 08/12/2023, 07/2022, 02/06/2022, Additional history exists Albumin/Creatinine Ratio 05/27/2026 05/27/2023 Diabetes Screening 08/11/2026 08/12/2023, 0 12/05/2022, 02/06/2022, Additional history exists Lipid Panel 02/06/2027 02/06/2022, 010 09/2018, 11/03/2015, Additional history exists Pneumococcal Vaccine: [...] Documents on File Type Date Recorded Patient Retirement Administrator Expl anation Power of Guest Relations Officer 02/22/2019 POWER OF A TTORNEY - LIVING WILL Care Teams Fruit Stuffer Relationship Specialty Start Date End Date Davi Valencia DO [address] [place] [address] PCP - General Internal Medicine 12/10/21 documented as of this encounter
--- OUTSIDE RECORDS SUMMARY | 2023-12-25 08:30 | External Medical Summary ---
Author Name Unknown Address Unknown Organization K01:[facility] [place] [address] [address] [address] Laboratory Report Ordering Provider Test Date Status PAULA GOMEZ 08/12/2023 11:58:11 Final Observation Date Value Abnormality Reference (Units ) Status SYNC LEUKOCYTES IN BLOOD BY AUTOMATED COUNT 08/12/2023 11:58:11 7.80 4.00-10.80 (K/uL) Final Segs 08/12/2023 11:58:11 57.2 40.0-75.0 (%) Final Lymphs % 08/12/2023 11:58:11 31.2 18.0-42.0 (%) Final Monos 08/12/2023 11:58:11 8.5 1.0-11.0 (%) Final Eosinophils 08/12/2023 11:58:11 2.1 0.0-6.0 (%) Final Basos 08/12/2023 11:58:11 0.6 0.0-2.0 (%) Final Immature Granulocyte, Percent 08/12/2023 11:58:11 0.4 0.0-2.0 (%) Final Absolute Segs 08/12/2023 11:58:11 4.47 1.80-7.70 (K/uL) Final Lymphs, absolute 08/12/2023 11:58:11 2.43 1.00-4.80 (K/ul) Final Monos, Abs 08/12/2023 11:58:11 0.66 0.00-1.10 (K/uL) Final Eos, Abs 08/12/2023 11:58:11 0.16 0.00-0.70 (K/uL) Final Basos, Abs 08/12/2023 11:58:11 0.05 0.00-0.20 (K/uL) Final Immature Granulocytes, Number 08/12/2023 11:58:11 0.03 0.00-0.20 (K/uL) Final Performing Location [facility] - [address] [facility] [address]
--- OUTSIDE RECORDS SUMMARY | 2023-12-25 08:30 | External Medical Summary | Summary of Care ---
Author Name Unknown Organization [facility] Address [address] [place] [address] Phone [phone] Care Team Providers Care Operations Support Representative Name Role Phone DaxmaeganDavi DO Primary Care Provid er Reason for Visit * Reason Comments Dosage Adjustment Via Phone (anticoag Cl inic) Status Check Encounter Details Date Type Department Care Team (Late st Contact Info) Description 08/19/2023 7:40 AM EDT Pharmacy Hepatology, [place] [address] [place], [place] [phone] [place], Pharmacist Hepatology [address] [place], [place] [phone] Chronic hepatitis C without hepatic coma (HCC)* Allergies No known active allergiesdocumented as of this encounter (statuses as of 08/19/2023) Medications Medication Sig Dispensed Refills Start Date [...] Active QUEtiapine Fumarate 300 MG Oral Tablet (SEROquel)Indicatio ns:Severe dementia associated with alcoholism, with psychotic disturbance (HCC) Take 1 Tablet by mouth at bedtime. 30 Tablet 3 08/11/2023 Active Memantine HCl 5 MG Oral Tablet (Namenda) Take 1 Tablet by mouth 2 times a day with morning and evening meals. 60 Tablet 3 08/11/2023 Active Mavyret 100-40 MG Oral Tablet (glecaprevir-pibren tasvir 100-40 mg per tab)Indications:Chr onic hepatitis C without hepatic coma (HCC) Take one packet (all 3 tabs) once daily with food. 84 Tablet 1 06/06/2023 08/19/2023 Discontinued (Medication List Clean Up) documented as of this encounter (statuses as of 08/19/2023) Active Problems Problem Noted Date Diagnosed Date [...] as of this encounter (statuses as of 08/19/2023) Resolved Problems Problem Noted Date Diagnosed Date Resolved Date Unspecified dementia, unspec ified severity, without behavioral disturbance, psychotic disturbance, mood disturbance, and anxiety 04/04/2022 05/30/2023 HTN, goal below 140/80 05/11/201208/09 Erectile dysfunction 01/27/2012 022 Psoriatic arthropathy 08/01/20112017 documented as of this encounter (statuses as of 08/19/2023) Immunizations Name Administration Dates Next Due Pneumococcal Conjugate Vacci ne, 20-valent ([id number]) 12/10/2021 Pneumococcal Polysaccharide PPV23 (Pneumovax) 04/24/2012 Season [...] this encounter Progress Notes * Xin Russell, [facility] - 08/19/2023 5:11 PM EDT MTM Hepatitis C Pre-Treatment Follow-Up Patient Name: Jame Villalobos History of Current Illness: Jame Villalobos is a 68 year old male with chronic Hepatitis C, genotype 1b, F2-F3 , last seen in the Hepatology clinic on 02/03/2023. Patient is in the pre- treatment phase of Hepatitis C treatment. This is a follow-up phone call to again discuss the patient's health insurance status. Per [facility] prior authorization request determination, "[facility] advised their records indicate patient is eligible for Medicare. Unfortunately either [employer] appeal will need to be initiated or if patient advising they dont have coverage and only [facility] they must contact their county assistance office or supervisor case loading for [place] to update their file." Per [employer] prior authorization request determination, "[employer] advised they cannot review [place] due to there being a denial on file within the last 60 days. Appeal must be the next step." Treatment Overview: Physician initiating therapy: Juan Cruz MD/Lizabeth Calderon, Treatment plan: Mavyret for 8 weeks. Were you able to contact the patient? I called the mobile phone and spoke with Ben. He confirmed they have disenrolled the patient form the [employer] plan and he has the coverage he's eligible for. He stated there is currently 1 day per week that the patient doesn't have a caregiver, therefore they'relooking to move him into his home for care. He requested a return call in 1 month where he should ho ve more information on when they can proceed with treatment. [place] Plan: Will follow-up again next month, as requested. Xin Russell, WalterD, [facility] Clinical Pharmacist, Hepatology 08/19/2023 5:11 PM documented in this encounter Plan of Treatment Upcoming Encounters Date Type Department Care Team ([facility] st Contact Info) Description 08/27/2023 3:20 PM EDT Office Visit [address] [phone] Davi Valencia, [address] [place] [address] 09/15/2023 2:00 PM EDT Telemedicine Psychiatry, [place] [address] [place] [address] Tamra Crooks MD [address] [place] [phone] 09/16/2023 7:00 AM EDT Pharmacy Hepatology, [place] [address] [place] [address] [place], Pharmacist Hepatology [address] [place] [address] Health Maintenance Due Date Last Done Comments [...] Documents on File Type Date Recorded Patient Driller Portable Expl anation Power of Avid Editor 02/22/2019 POWER OF A TTORNEY - LIVING WILL Care Teams Operations Support Representative Relationship Specialty Start Date End Date Davi Valencia DO [address] [place] [address] PCP - General Internal Medicine 12/10/21 documented as of this encounter
--- OUTSIDE RECORDS SUMMARY | 2023-12-25 08:30 | External Medical Summary | Summary of Care ---
Author Name Unknown Organization [facility] Address [address] [facility] [place] [address] Phone [phone] Care Team Providers Care Solution Designer Name Role Phone DaxmaeganDavi DO Primary Care Provid er Reason for Visit * Reason Comments Outpatient Testing Encounter Details Date Type Department Care Team (Late st Contact Info) Description 08/12/2023 12:20 PM EDT Laboratory Laboratory Patient Service [address] [phone] [address] HTN, goal below 140/90; Mood disorder (HCC); Severe dementia associated with alcoholism, with psychotic disturbance (HCC) Allergies No known active allergiesdocumented as of this encounter (statuses as of 08/12/2023) Medications Medication Sig Dispensed Refills Start Date [...] THE MORNING 90 Tablet 1 05/28/2023 Active Mavyret 100-40 MG Oral Tablet (glecaprevir-pibrentas vir 100-40 mg per tab)Indications:Chroni c hepatitis C without hepatic coma (HCC) Take one packet (all 3 tabs) once daily with food. 84 Tablet 1 06/06/2023 Active Thiamine HCl 100 MG Oral Tablet [...] as of this encounter (statuses as of 08/12/2023) Active Problems Problem Noted Date Diagnosed Date [...] as of this encounter (statuses as of 08/12/2023) Resolved Problems Problem Noted Date Diagnosed Date Resolved Date Unspecified dementia, unspec ified severity, without behavioral disturbance, psychotic disturbance, mood disturbance, and anxiety 04/04/2022 05/30/2023 HTN, goal below 140/80 05/11/201208/09 Erectile dysfunction 01/27/2012 022 Psoriatic arthropathy 08/01/20112017 documented as of this encounter (statuses as of 08/12/2023) Immunizations Name Administration Dates Next Due Pneumococcal Conjugate Vacci ne, 20-valent ([id number]) 12/10/2021 Pneumococcal Polysaccharide PPV23 (Pneumovax) 04/24/2012 Season [...] on file documented as of this encounter Plan of Treatment Upcoming Encounters Date Type Department Care Team (Late st Contact Info) Description 08/19/2023 7:40 AM EDT Pharmacy Hepatology, [address] [address] [place], Pharmacist Hepatology [address] [place] [address] 08/27/2023 3:20 PM EDT Office Visit [facility] [address] [place] [id number] Davi Valencia, DO [address] [place] [address] 09/15/2023 2:00 PM EDT Telemedicine Psychiatry, [place] [address] [place] [address] Tamra Crooks MD [address] [place] [address] Pending Results Name Type Priority Associated Diagnoses Date /Time COMPREHENSIVE METABOLIC PANEL Lab Routine HTN, goal below 140/90 Mood disorder (HCC) Severe dementia associated with alcoholism, with psychotic disturbance (HCC) 08/12/2023 11:58 AM EDT CBC WITH WBC DIFFERENTIAL Lab Routine HTN, goal below 140/90 Mood disorder (HCC) Severe dementia associated with alcoholism, with psychotic disturbance (HCC) 08/12/2023 11:58 AM EDT 25-HYDROXY VITAMIN D Lab Routine HTN, goal below 140/90 Mood disorder (HCC) Severe dementia associated with alcoholism, with psychotic disturbance (HCC) 08/12/2023 11:58 AM EDT VITAMIN B1 (THIAMINE), BLOOD, LC/MS/MS Lab Routine HTN, goal below 140/90 Mood disorder (HCC) Severe dementia associated with alcoholism, with psychotic disturbance (HCC) 08/12/2023 11:58 AM EDT VITAMIN B12 Lab Routine HTN, goal below 140/90 Mood disorder (HCC) Severe dementia associated with alcoholism, with psychotic disturbance (HCC) 08/12/2023 11:58 AM EDT TSH WITH FREE T4 IF INDICATED Lab Routine HTN, goal below 140/90 Mood disorder (HCC) Severe dementia associated with alcoholism, with psychotic disturbance (HCC) 08/12/2023 11:58 AM EDT CBC Lab Routine HTN, goal below 140/90 Mood disorder (HCC) Severe dementia associated with alcoholism, with psychotic disturbance (HCC) 08/12/2023 11:58 AM EDT DIFFERENTIAL, AUTOMATED Lab Routine HTN, goal below 140/90 Mood disorder (HCC) Severe dementia associated with alcoholism, with psychotic disturbance (HCC) 08/12/2023 11:58 AM EDT Health Maintenance Due Date Last Done Comments LUNG CANCER SCREENING - USE SMARTSET 84004 2004 Zoster Vaccines (1 of 2) 2004 COLONOSCOPY-EVERY 5 YRS AGES 18-100 02/09/2019 02/09/2014, 08/12/2008 AAA Screening 2019 DTaP,Tdap,and Td Vaccines (2 - Td or Tdap) 08/08/2019 08/07/2009 *BASELINE EKG FOR HTN 02/12/2022 COVID-19 Vaccine ( - 2022- season) 2023 GFR 12/06/2023 12/05/2022, 09/2021, 12/02/2021, Additional history exists Influenza Vaccine (FLU shot) (Season Ended) 2024 03/12/2019, 07/10/2016, 02/01/2015, Additional history exists Diabetes Screening 12/05/2025 12/05/2022, 1 , 02/06/2022, Additional history exists Albumin/Creatinine Ratio 05/27/2026 05/27/2023 Lipid Panel 02/06/2027 02/06/2022, 09/2018, 11/03/2015, Additional history exists Pneumococcal Vaccine: 65+ Years Completed 12/10/2021, 04/24/2012 GARDASIL-HPV IMMUNIZATION SERIES Aged Out No longer [...] as of this encounter Visit Diagnoses Diagnosis HTN, goal below 140/90 Unspecified essential hypertension Mood disorder (HCC) Unspecified episodic mood disorder Severe dementia associated with alcoholism, with psychotic disturbance (HCC) documented in this encounter Advance Directives Documents on File Type Date Recorded Patient Screw Down Expl anation Power of Director Advertising 02/22/2019 POWER OF A TTORNEY - LIVING WILL Care Teams Solution Designer Relationship Specialty Start Date End Date Davi Valencia DO [address] [place] [address] PCP - General Internal Medicine 12/10/21 documented as of this encounter
--- OUTSIDE RECORDS SUMMARY | 2023-12-25 08:30 | External Medical Summary ---
Author Name Unknown Address Unknown Organization K01:[facility] [place] [address] [address] Laboratory Report Ordering Provider Test Date Status PAULA GOMEZ 08/12/2023 11:58:11 Final Observation Date Value Abnormality Reference (Units ) Status BUN 08/12/2023 11:58:11 19 6-20 (mg/dL) Final Creatinine 08/12/2023 11:58:11 1.3 Above high normal 0.6-1.2 (mg/dL) Final Glomerular filtration rate/1.73 sq M.predicted [Volume Rate/Area] in Serum, Plasma or Blood by Creatinine-based formula (CKD-EPI) 08/12/2023 11:58:11 62 >=60 (mL/min) Final eGFR is calculated based on the CKD-EPI 2020 equation Sodium 08/12/2023 11:58:11 139 135-146 (m mol/L) Final Potassium 08/12/2023 11:58:11 4.8 3.5-5.1 (m mol/L) Final Cl 08/12/2023 11:58:11 104 98-107 (mm ol/L) Final CO2 08/12/2023 11:58:11 25 22-32 (mmo l/L) Final Anion gap 08/12/2023 11:58:11 10 7-15 (mmol /L) Final Glucose 08/12/2023 11:58:11 97 70-120 (mg /dL) Final Albumin 08/12/2023 11:58:11 4.2 3.8-5.0 (g /dL) Final AST (Aspartate aminotransferase) 08/12/2023 11:58:11 25 10-50 (U/L) Fin al Alk Phos 08/12/2023 11:58:11 131 Above high normal 35 -130 (U/L) Final Bilirubin, Total 08/12/2023 11:58:11 0.3 <=1 .2 (mg/dL) Final Calcium 08/12/2023 11:58:11 9.5 8.4-10.2 ( mg/dL) Final Protein 08/12/2023 11:58:11 7.1 6.0-8.3 (g /dL) Final ALT (Alanine aminotransferase) 08/12/2023 11:58:11 22 10-50 (U/L) Jamison garza Performing Location [facility] [address] [facility] [address]
--- OUTSIDE RECORDS SUMMARY | 2023-12-25 08:30 | External Medical Summary | Summary of Care ---
Author Name Unknown Organization [facility] Address [address] [facility] [place] [address] Phone [phone] Care Team Providers Care Material Control Clerk Name Role Phone Davi Valencia DO Primary Care Provid er Reason for Visit * Reason Comments Follow Up Patient is here for a follow up.Patient states he has no concerns. Encounter Details Date Type Department Care Team (Latest Contact Info) Description 08/27/2023 3:20 PM EDT Office Visit [address] [address] Davi Valencia DO [address] [place] [address] Moderate alcohol-induced major neurocognitive disorder, amnestic confabulatory type, with moderate or severe use disorder (HCC)*; Colon cancer screening; Psoriatic arthritis (HCC); HTN, goal below 140/90; Mood disorder (HCC); Major depressive disorder, recurrent episode, moderate (HCC); Generalized anxiety disorder Allergies No known active allergiesdocumented as of this encounter (statuses as of 08/27/2023) Medications Medication Sig Dispensed Refills Start Date [...] evening meals. 60 Tablet 3 08/11/2023 Active Sildenafil Citrate 100 MG Oral Tablet Take by mouth. 0 08/27/2023 Discontinued (Patient preference/d iscontinuati on) documented as of this encounter (statuses as of 08/27/2023) Active Problems Problem Noted Date Diagnosed Date [...] as of this encounter (statuses as of 08/27/2023) Resolved Problems Problem Noted Date Diagnosed Date Resolved Date Unspecified dementia, unspec ified severity, without behavioral disturbance, psychotic disturbance, mood disturbance, and anxiety 04/04/2022 05/30/2023 HTN, goal below 140/80 05/11/201208/09 Erectile dysfunction 01/27/2012 022 Psoriatic arthropathy 08/01/20112017 documented as of this encounter (statuses as of 08/27/2023) Immunizations Name Administration Dates Next Due Pneumococcal Conjugate Vacci ne, 20-valent ([id number]) 12/10/2021 Pneumococcal Polysaccharide PPV23 (Pneumovax) 04/24/2012 Season [...] on file documented as of this encounter Last Filed Vital Signs Vital Sign Reading Time Taken Comments Blood Pressure 118/62 08/27/2023 3:42 PM EDT Pulse 86 08/27/2023 3:42 PM EDT Temperature 36.8 C (98.2 F) 08/27/2023 3:42 PM ED T Respiratory Rate 18 08/27/2023 3:42 PM EDT Oxygen Saturation 95% 08/27/2023 3:42 PM EDT Inhaled Oxygen Concentration - - Weight 73.7 kg (162 lb 6.4 oz) 08/27/2023 3:42 P M EDT Height - - Body Mass Index 26.21 02/10/2023 11:55 AM EDT documented in this encounter Progress Notes * Daxmaegan Davi Asencio, DO - 08/27/2023 3:46 PM EDT Subjective Jame Villalobos is a 68 year old male. Chief Complaint Patient presents with Follow Up Patient is here for a follow up. Patient states he has no concerns. HPI: Patient presents office for routine follow-up. Lab work done. Medication list reviewed. Patient presents with family member Has history of suspected alcohol-induced neuro cognitive disorder. Has been following with [facility] psychiatry. Recent consultation notes reviewed. Also suspected mood disorder. Continued on citalopram 10 mg daily for anxiety. Patient family notes this seems to help. Has been placed on donepezil 10 mg at dinner. Memantine 5 mg twice daily to help with cognitive issues also placed on Seroquel 300mg nightly for mood disorder. Overall they state that he seems to be doing better. Less anxiety andparanoia. Seems to be eating better. Has put on some weight. Current BMI 26. Recent labs showed good levels of vitamin-D, B1, B12, thyroid levels. Hypertension maintained on amlodipine 10 mg daily, lisinopril 10 mg daily. Recent labs showed stable renal function and electrolytes. No symptoms noted be consistent with elevation of baseline blood pressure PMH: Patient Active Problem List Diagnosis Code Tobacco use disorder F17.200 Diverticulosis of colon (without mention of hemorrhage) K57.30 HTN, goal below 140/90 I10 Psoriatic arthritis (HCC) L40.50 Psoriasis L40.9 Benign prostatic hyperplasia without lower urinary tract symptoms N40.0 Chronic hepatitis C without hepatic coma (HCC) B18.2 Cognitive impairment R41.89 Mood disorder (HCC) F39 Moderate alcohol-induced major neurocognitive disorder, amnestic confabulatory type, with moderate or severe use disorder (HCC) F10.26 Major depressive disorder, recurrent episode, moderate (HCC) F33.1 Generalized anxiety disorder F41.1 Psychosis (HCC) F29 Current Outpatient Medications Medication Sig Dispense Refill [...] morning and evening meals. 60 Tablet 3 Sildenafil Citrate 100 MG Oral Tablet Take by mouth. (Patient not taking: Reported on 05/27/2023) No current facility-administered medications for this visit. Past Medical History: Diagnosis Date Chronic alcohol abuse Dementia due to alcohol (HCC) Diverticulosis of colon (without mention of hemorrhage) Diverticulosis w/o Bleed Psoriasis Psoriatic arthritis (HCC) Seizure (HCC) in his 20s. Resolved Tubular adenoma 08/12/2008 colonoscopy Past Surgical History: Procedure Laterality Date COLONOSCOPY 02/09/201402/15 diverticulosis 08/11 tubular adenoma EGD, W/ENDOSCOPIC US 02/20/2023 gastritis/23 mm cystic lesion pancreatic tail/13mm cyst liver/biopsies show moderate level of fibrosis, pseudocyst/ESOPHAGOGASTRODUODENOSCOPY (EGD), FLEXIBLE, TRANSORAL, ENDOSCOPIC ULTRASOUND performed by Jenaro Rodriguez DO at ENDOSCOPY [facility] MISCELLANEOUS ORDER ([facility] ONLY) Hernia repair Review of patient's allergies indicates: No Known Allergies Family History Problem Relation Age of Onset Heart Disorder Mother Other (Other) Father aortic aneurysm Family Status Relation Status Mo at age 62 heart failure Fa at age 69 aortic aneurysm Sis Alive Sis Alive Bro Alive Bro at age 44 HIV Social History Socioeconomic History Marital status: Single Spouse name: Not on file Number of children: 0 Years of education: 12 Highest education level: Not on file Occupational History 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 Tobacco Use Smoking status: Every Day Current packs/day: 1.00 Average packs/day: 1 pack/day for 25.0 years (25.0 ttl pk-yrs) Types: Cigarettes Smokeless tobacco: Never Vaping Use Vaping Use: Never used Substance and Sexual Activity Alcohol use: Not Currently Comment: has been a few weeks Drug use: Never Sexual activity: Not on file Other Topics Concern Not on file Social History Narrative Not on file Social Determinants of Health Financial Resource Strain: Not on file Food Insecurity: No Food Insecurity (06/30/2023) Hunger Vital Sign Worried About Running Out of Food in the Last Year: Never true Ran Out of Food in the Last Year: Never true Transportation Needs: Not on file Physical Activity: Not on file Stress: Not on file Social Connections: Not on file Intimate Partner Violence: Not on file Housing Stability: Not on file Review of Systems Constitutional: Negative for chills, fatigue and fever. HENT: Negative for congestion, sore throat and trouble swallowing. Eyes: Negative for photophobia and pain. Respiratory: Negative for cough and shortness of breath. Cardiovascular: Negative for chest pain and palpitations. Gastrointestinal: Negative for abdominal distention, abdominal pain, nausea and vomiting. Genitourinary: Negative for dysuria and frequency. Musculoskeletal: Negative for back pain and neck stiffness. Skin: Negative for pallor. Neurological: Negative for dizziness, light-headedness and headaches. Psychiatric/Behavioral: Positive for confusion. Negative for sleep disturbance. The patient is not nervous/anxious. Objective BP 118/62 | Pulse 86 | Temp 36.8 C (98.2 F) (Tympanic) | Resp 18 | Wt 73.7 kg (162 lb 6.4 oz) |SpO2 95% | BMI 26.21 kg/m | BSA 1.85 m Physical Exam Constitutional: General: He is not in acute distress. Appearance: He is not ill-appearing. HENT: Head: Normocephalic and atraumatic. Right Ear: Tympanic membrane, ear canal and external ear normal. Left Ear: Tympanic membrane, ear canal and external ear normal. Nose: Nose normal. No congestion or rhinorrhea. Mouth/Throat: Mouth: Mucous membranes are moist. Pharynx: Oropharynx is clear. Eyes: General: No scleral icterus. Extraocular Movements: Extraocular movements intact. Conjunctiva/sclera: Conjunctivae normal. Pupils: Pupils are equal, round, and reactive to light. Neck: Vascular: No carotid bruit. Cardiovascular: Rate and Rhythm: Normal rate and regular rhythm. Pulses: Normal pulses. Heart sounds: Normal heart sounds. No murmur heard. No friction rub. No gallop. Pulmonary: Effort: Pulmonary effort is normal. Breath sounds: Normal breath sounds. No wheezing, rhonchi or rales. Abdominal: General: Bowel sounds are normal. There is no distension. Palpations: Abdomen is soft. There is no mass. Tenderness: There is no abdominal tenderness. Musculoskeletal: General: No swelling or tenderness. Normal range of motion. Cervical back: Normal range of motion and neck supple. Right lower leg: No edema. Left lower leg: No edema. Skin: General: Skin is warm and dry. Coloration: Skin is not jaundiced. Findings: No rash. Neurological: General: No focal deficit present. Mental Status: He is oriented to person, place, and time. Cranial Nerves: No cranial nerve deficit. Sensory: No sensory deficit. Motor: No weakness. Psychiatric: Mood and Affect: Mood normal. Behavior: Behavior normal. Comments: Patient is thinking still very tangential. Often jumbled words together. Does seem less anxious and paranoid compared to previous Latest Reference Range & Units 08/12/23 11:58 Sodium 135 - 146 mmol/L 139 Potassium 3.5 - 5.1 mmol/L 4.8 Chloride 98 - 107 mmol/L 104 CO2 22 - 32 mmol/L 25 BUN 6 - 20 mg/dL 19 Creatinine 0.6 - 1.2 mg/dL 1.3 (H) Estimated Glomerular Filtration Rate >=60 mL/min 62 Anion Gap 7 - 15 mmol/L 10 Glucose 70 - 120 mg/dL 97 Calcium 8.4 - 10.2 mg/dL 9.5 Protein 6.0 - 8.3 g/dL 7.1 25-Hydroxy Vitamin D >19 ng/mL 34 25-HYDROXY VITAMIN D Rpt TSH 0.27 - 4.20 uIU/mL 0.75 TSH WITH FREE T4 IF INDICATED Rpt CBC Rpt WBC 4.00 - 10.80 K/uL 7.80 RBC 4.50 - 5.25 M/uL 4.84 HGB 14.0 - 16.8 g/dL 15.5 HCT 40.0 - 48.4 % 47.3 MCV 82.0 - 99.5 fL 97.7 MCH 27.0 - 34.0 pg 32.0 MCHC 32.0 - 36.0 g/dL 32.8 RDW 11.5 - 15.5 % 13.1 PLT 140 - 400 K/uL 263 MPV 6.6 - 11.1 fL 11.2 CBC WITH WBC DIFFERENTIAL Rpt Absolute Neutrophils 1.80 - 7.70 K/uL 4.47 Absolute Lymphocytes 1.00 - 4.80 K/ul 2.43 Absolute Monocytes 0.00 - 1.10 K/uL 0.66 Absolute Eosinophils 0.00 - 0.70 K/uL 0.16 Absolute Basophils 0.00 - 0.20 K/uL 0.05 Vitamin B12 232 - 1,245 pg/mL 504 Albumin 3.8 - 5.0 g/dL 4.2 AST 10 - 50 U/L 25 ALT 10 - 50 U/L 22 Alkaline Phosphatase 35 - 130 U/L 131 (H) Bilirubin, Total <=1.2 mg/dL 0.3 (H): Data is abnormally high Rpt: View report in Results Review for more information ASSESSMENT/PLAN: Moderate alcohol-induced major neurocognitive disorder, amnestic confabulatory type, with moderate or severe use disorder (HCC) (Primary) Colon cancer screening - COLOGUARD Psoriatic arthritis (HCC) HTN, goal below 140/90 - COMPREHENSIVE METABOLIC PANEL; Future; Expected date: 02/26/2024 - CBC WITH WBC DIFFERENTIAL; Future; Expected date: 02/26/2024 Mood disorder (HCC) Major depressive disorder, recurrent episode, moderate (HCC) Generalized anxiety disorder Plan: Patient presents to office for routine follow-up. Seems to be doing better overall Still baseline confusion related to suspected alcohol-induced neuro cognitive disorder. Seems more stabilized compared to previous visits. Should follow-up with psychiatry as scheduled Continue current medications. Blood pressure currently managed on lisinopril 10 mg daily, amlodipine 10 mg daily. No refills needed at this time Repeat labs in 6 months including CMP, CBC. Most recent set showed stable renal function, electrolytes. CBC without evidence of anemia. Thyroid panel looked fine. B1 and B12 levels within normal range Cologuard ordered for colon cancer screening Defers lung cancer screening referral. Defers vaccine such as zoster or Tdap. [facility] Follow Up: Return in about 6 months (around 02/26/2024), or if symptoms worsen or fail to improve, for Return with Physician. | For: Return with Physician | Check-out note: 6 month follow up Fasting labs [address] Jarod Valencia DO documented in this encounter Nursing Notes * Sharron Wynn LPN - 08/27/2023 3:44 PM EDT The patient has been properly identified by confirmation of name and date of . Chief Complaint Patient presents with Follow Up Patient is here for a follow up. Patient states he has no concerns. documented in this encounter Plan of Treatment Upcoming Encounters Date Type Department Care Team (Late st Contact Info) Description 09/15/2023 2:00 PM EDT Telemedicine Psychiatry, [place] [address] [place] [address] Tamra Crooks MD [address] [place] [address] 09/16/2023 7:00 AM EDT Pharmacy Hepatology, [place] [address] [place] [address] [place], Pharmacist Hepatology [address] [place] [address] 03/02/2024 2:20 PM EDT Office Visit [address] [address] Freddy Olivera MD [address] [place] [phone] Scheduled Orders Name Type Priority Associated Diagnoses Orde r Schedule COLOGUARD Lab Unrestricted Lab Colon cancer screening Ordered: 08/27/2023 COMPREHENSIVE METABOLIC PANEL Lab Routine HTN, goal below 140/90 Expected: 02/26/2024 (Approximate), Expires: 08/26/2024 CBC WITH WBC DIFFERENTIAL Lab Routine HTN, goal below 140/90 Expected: 02/26/2024 (Approximate), Expires: 08/26/2024 Health Maintenance Due Date Last Done Comments [...] 02/06/2022, 0 09/2018, 11/03/2015, Additional history exists Pneumococcal Vaccine: [...] as of this encounter Visit Diagnoses Diagnosis Moderate alcohol-induced major neurocognitive disorder, amnestic confabulatory type, with moderate or severe use disorder (HCC)- Primary Colon cancer screening Special screening for malignant neoplasms, colon Psoriatic arthritis (HCC) Psoriatic arthropathy HTN, goal below 140/90 Unspecified essential hypertension Mood disorder (HCC) Unspecified episodic mood disorder Major depressive disorder, recurrent episode, moderate (HCC) Major depressive disorder, recurrent episode, moderate Generalized anxiety disorder documented in this encounter Advance Directives Documents on File Type Date Recorded Patient 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
--- OUTSIDE RECORDS SUMMARY | 2023-12-25 08:30 | External Medical Summary | Summary of Care ---
Author Name Unknown Organization [facility] Address [address] [place] [facility] [address] Phone [phone] Care Team Providers Care Cloud Systems Administrator Name Role Phone Davi Valencia DO Primary Care Provid er Reason for Referral * Ancillary Services (Within 30 days (routine)) - Authorized Specialty Diagnoses / Procedures Referred By Akshat gan Referred To Contact Gastroenterology Diagnoses Screening for malignant neoplasm of colon Davi Valencia DO [address] [place] [address] Referral ID Status Reason Start Date Expiration Date Visits Requested Visits Authorized [id number] Authorized Ancillary Services Required 07/28/2023 1 1 Question Answer Referral Priority Within 30 days (routine) Where should this appointment be scheduled? [facility] Comments ALERT: Do not order for pediatric patients (18 years or younger). Cancel off screen and order PEDS GASTROENTEROLOGY CONSULT (Type: 1 visit only-Evaluate and Treat) The following Pt. Instructions are available: - Gastro Colonoscopy Prep Instructions [[id number]] - Gastro Colonoscopy Prep Instructions (Pashto Version) [[id number]] Go to the Pt. Instructions section within the Visit Navigator to access. Colonoscopy ASGE Guidelines: Average risk screening (begin at age 50, 10 year intervals) ADDITIONAL INFORMATION 1. Is the patient on Coumadin? No 2. Is the patient on Pradaxa? No Reason for Visit * Reason Onset Date Comments Appointment 07/30/2023 LM 07/29, 08/10 Col onoscopy Encounter Details Date Type Department Care Team ([facility] Contact Info) Description 07/15/2023 Telephone [facility] [address] [place] [phone] Davi Valencia DO [address] [place] [address] Appointment (LM 07/29, 08/10 Colonoscopy ) Allergies No known active allergiesdocumented as of this encounter (statuses as of 08/18/2023) Medications Medication Sig Dispensed Refills Start Date [...] 05/28/2023 Active Mavyret 100-40 MG Oral Tablet (glecaprevir-pibren tasvir 100-40 mg per tab)Indications:Chr onic hepatitis C without hepatic coma (HCC) Take one packet (all 3 tabs) once daily with food. 84 Tablet 1 06/06/2023 Active Thiamine HCl 100 MG Oral Tablet (vitamin B-1)Indications:His tory of alcohol use disorder TAKE 1 TABLET BY MOUTH EVERY MORNING 90 Tablet 1 06/23/2023 Active Citalopram Hydrobromide 10 MG Oral Tablet (CeleXA)Indications :Mood disorder (HCC) Take 1 Tablet by mouth in the morning. With breakfast. 30 Tablet 1 06/30/2023 08/11/2023 Discontinued (Refill) Donepezil HCl 10 MG Oral Tablet (Aricept)Indication s:Severe dementia associated with alcoholism, with psychotic disturbance (HCC) Take 1 Tablet by mouth daily with dinner. 30 Tablet 1 06/30/2023 08/11/2023 Discontinued (Refill) QUEtiapine Fumarate 300 MG Oral Tablet (SEROquel)Indicatio ns:Severe dementia associated with alcoholism, with psychotic disturbance (HCC) Take 1 Tablet by mouth at bedtime. 30 Tablet 1 06/30/2023 08/11/2023 Discontinued (Refill) documented as of this encounter (statuses as of 08/18/2023) Active Problems Problem Noted Date Diagnosed Date [...] as of this encounter (statuses as of 08/18/2023) Resolved Problems Problem Noted Date Diagnosed Date Resolved Date Unspecified dementia, unspec ified severity, without behavioral disturbance, psychotic disturbance, mood disturbance, and anxiety 04/04/2022 05/30/2023 HTN, goal below 140/80 05/11/201208/09 Erectile dysfunction 01/27/2012 022 Psoriatic arthropathy 08/01/20112017 documented as of this encounter (statuses as of 08/18/2023) Immunizations Name Administration Dates Next Due Pneumococcal Conjugate Vacci ne, 20-valent ([id number]) 12/10/2021 Pneumococcal Polysaccharide PPV23 (Pneumovax) 04/24/2012 Season [...] encounter Miscellaneous Notes * Telephone Encounter - Christin Devlin NCMA - 08/18/2023 2:27 PM EDT Letter sent * Telephone Encounter - Aylin Sprague LPN - 08/11/2023 12:54 PM EDT Called pt, no answer, left message on machine with callback number. Upon return call, screen patient and schedule accordingly. * Telephone Encounter - Yadira Steel OSA - 07/30/2023 10:57 AM EDT Left message for pt to call for colonoscopy * Addendum Note - Shanelle Cochran LPN - 07/28/2023 9:54 AM EDTAddended by: SHANELLE COCHRAN on: 07/28/2023 09:54 AM Modules accepted: Orders * Telephone Encounter - Shanelle Cochran LPN - 07/28/2023 9:51 AM EDT AAA screening scheduled. Colonoscopy ordered. Will forward for scheduling. Thank you. * Telephone Encounter - Shanelle Cochran LPN - 07/15/2023 8:31 AM EDT Care Gaps Comprehensive Care Outreach Last Office/Telemedicine Visit: 05/27/2023 (in office), 05/01/2023 (telemedicine) Next Office Visit: 08/27/2023 Hemoglobin AIC Results: Lab Results Component Value Date/Time HEMOGLOBIN A1C - GUIDOVENUSER 5.6 02/06/2022 04:07 PM BP Readings from Last 1 Encounters: 05/27/23 114/72 Reviewed Health Maintenance below COLONOSCOPY-EVERY 5 YRS AGES 18-100 02/09/2019 AAA Screening Never done Care Gap Outreach Action Taken: Left message and MyChart message sent documented in this encounter Plan of Treatment Upcoming Encounters Date Type Department Care Team (Late st Contact Info) Description 08/19/2023 7:40 AM EDT Pharmacy Hepatology, [address] [address] [place], Pharmacist Hepatology [address] [place] [address] 08/27/2023 3:20 PM EDT Office Visit [address] [phone] Davi Valencia, [address] [address] 09/15/2023 2:00 PM EDT Telemedicine Psychiatry, [address] [place] [address] Tamra Crooks MD [address] [place] [address] Scheduled Referrals Name Type Priority Associated Diagnoses Orde r Schedule COLONOSCOPY, GI REFERRAL OP Referral Within 30 days (routine) Screening for malignant neoplasm of colon Ordered: 07/28/2023 Health Maintenance Due Date Last Done Comments [...] Not on filedocumented as of this encounter Results * US AAA SCREEN, RADIOLOGY (08/12/2023 12:39 PM EDT) Anatomical Region Laterality Modality Abdomen, Body Ultrasound 08/13/2023 8:32 PM EDT Impressions 08/13/2023 8:29 PM EDT IMPRESSION No abdominal aortic aneurysm. Cystic lesion in the body of the pancreas measuring 2.5 cm as compared to 2.3 cm on the endoscopic ultrasound dated 02/20/2023. Correlate clinically and if further imaging assessment is required then consider MRI of the abdomen without and with contrast with MRCP. Narrative 08/13/2023 8:29 PM EDT EXAM US AAA SCREEN, RADIOLOGY - 08/12/2023 12:39 pm HISTORY screening TECHNIQUE Sonogram of the abdominal aorta. COMPARISON None FINDINGS Aorta measures as follows : Proximal: 2.1 cm x 2.2 cm. Mid: 1.9 cm x 1.9 cm. Distal: 1.5 cm x 1.9 cm. Right common iliac: 0.9 cm x 0.9 cm. Left common iliac: 1.0 cm x 1.0 cm. A 2.5 cm cystic lesion is present in the body of the pancreas. A similar lesion has been measured on the images of the endoscopic ultrasound dated 02/20/2023 measuring up to 2.3 cm. Procedure Note Gavin Lau MD - 08/13/2023 EXAM US AAA SCREEN, RADIOLOGY - 08/12/2023 12:39 pm HISTORY screening TECHNIQUE Sonogram of the abdominal aorta. COMPARISON None FINDINGS Aorta measures as follows : Proximal: 2.1 cm x 2.2 cm. Mid: 1.9 cm x 1.9 cm. Distal: 1.5 cm x 1.9 cm. Right common iliac: 0.9 cm x 0.9 cm. Left common iliac: 1.0 cm x 1.0 cm. A 2.5 cm cystic lesion is present in the body of the pancreas. A similarlesion has been measured on the images of the endoscopic ultrasound dated1 measuring up to 2.3 cm. IMPRESSION IMPRESSION No abdominal aortic aneurysm. Cystic lesion in the body of the pancreas measuring 2.5 cm as compared to2.3 cm on the endoscopic ultrasound dated 02/20/2023. Correlateclinically and if further imaging assessment is required then consider MRIof the abdomen without and with contrast with MRCP. Davi Valencia DO RAD ULTRASOU ND documented in this encounter Visit Diagnoses Diagnosis Screening for AAA (aortic abdominal aneurysm)- Primary Screening for other and unspecified cardiovascular conditions Screening for malignant neoplasm of colon Screening for AAA (aortic abdominal aneurysm) Screening for other and unspecified cardiovascular conditions documented in this encounter Advance Directives Documents on File Type Date Recorded Patient Therapeutic Activities Services Worker Expl anation Power of Hospital Internship 02/22/2019 POWER OF A TTORNEY - LIVING WILL Care Teams Cloud Systems Administrator Relationship Specialty Start Date End Date Davi Valencia DO [address] [place] [id number] PCP - General Internal Medicine 12/10/21 documented as of this encounter
--- OUTSIDE RECORDS SUMMARY | 2023-12-25 08:31 | External Medical Summary | Summary of Care ---
Author Name Unknown Organization [facility] Address [address] [facility] [place] [address] Phone [phone] Care Team Providers Care Press Operator Helper Name Role Phone Davi Valencia DO Primary Care Provid er Reason for Referral * Ancillary Services (Within 30 days (routine)) - Authorized Specialty Diagnoses / Procedures Referred By Akshat gan Referred To Contact Gastroenterology Diagnoses Screening for malignant neoplasm of colon Davi Valencia DO [address] [place] [address] Referral ID Status Reason Start Date Expiration Date Visits Requested Visits Authorized [id number] Authorized Ancillary Services Required 07/28/2023 1 1 Question Answer Referral Priority Within 30 days (routine) Where should this appointment be scheduled? [facility] Comments ALERT: Do not order for pediatric patients (18 years or younger). Cancel off screen and order PEDS GASTROENTEROLOGY CONSULT (Type: 1 visit only-Evaluate and Treat) The following Pt. Instructions are available: - Gastro Colonoscopy Prep Instructions [[id number]] - Gastro Colonoscopy Prep Instructions (Kazakh Version) [[id number]] Go to the Pt. Instructions section within the Visit Navigator to access. Colonoscopy ASGE Guidelines: Average risk screening (begin at age 50, 10 year intervals) ADDITIONAL INFORMATION 1. Is the patient on Coumadin? No 2. Is the patient on Pradaxa? No Reason for Visit * Reason Onset Date Comments Appointment 07/30/2023 LM 07/29 Colonosc opy Encounter Details Date Type Department Care Team ([facility] Contact Info) Description 07/15/2023 Telephone [facility] [address] [place] [phone] Davi Valencia, [address] [place] [address] Appointment (SUDHA 07/29 Colonoscopy ) Allergies No known active allergiesdocumented as of this encounter (statuses as of 07/31/2023) Medications Medication Sig Dispensed Refills Start Date [...] morning. With breakfast. 30 Tablet 1 06/30/2023 Active Donepezil HCl 10 MG Oral Tablet (Aricept)Indications:S evere dementia associated with alcoholism, with psychotic disturbance (HCC) Take 1 Tablet by mouth daily with dinner. 30 Tablet 06/30/2023 Active QUEtiapine Fumarate 300 MG Oral Tablet (SEROquel)Indications: Severe dementia associated with alcoholism, with psychotic disturbance (HCC) Take 1 Tablet by mouth at bedtime. 30 Tablet 1 06/30/2023 Active documented as of this encounter (statuses as of 07/31/2023) Active Problems Problem Noted Date Diagnosed Date [...] as of this encounter (statuses as of 07/31/2023) Resolved Problems Problem Noted Date Diagnosed Date Resolved Date Unspecified dementia, unspec ified severity, without behavioral disturbance, psychotic disturbance, mood disturbance, and anxiety 04/04/2022 05/30/2023 HTN, goal below 140/80 05/11/201208/09 Erectile dysfunction 01/27/2012 022 Psoriatic arthropathy 08/01/20112017 documented as of this encounter (statuses as of 07/31/2023) Immunizations Name Administration Dates Next Due Pneumococcal Conjugate Vacci ne, 20-valent ([id number]) 12/10/2021 Pneumococcal Polysaccharide PPV23 (Pneumovax) 04/24/2012 Season [...] money to buy more. Never true 06/30/19 Within the past 12 months, t he [...] Results Component Value Date/Time HEMOGLOBIN A1C - CHLOEER 5.6 02/06/2022 04:07 PM BP Readings from Last 1 Encounters: 05/27/23 114/72 Reviewed Health Maintenance below COLONOSCOPY-EVERY 5 YRS AGES 18-100 02/09/2019 AAA Screening Never done Care Gap Outreach Action Taken: Left message and MyChart message sent documented in this encounter Plan of Treatment Upcoming Encounters Date Type Department Care Team (Late st Contact Info) Description 08/11/2023 12:00 PM EDT Telemedicine Psychiatry, [place] [address] [place] [address] Tamra Crooks MD [address] [place] [address] 08/12/2023 11:30 AM EDT Imaging Radiology, [address] [phone] 08/19/2023 7:40 AM EDT Pharmacy Hepatology, [place] [address] [place] [address] [place], Pharmacist Hepatology [address] [place] [address] 08/21/2023 9:30 AM EDT Laboratory Laboratory Patient Service [address] [phone] [address] 08/27/2023 3:20 PM EDT Office Visit [address] [phone] Davi Valencia DO [address] [place] [phone] Scheduled Orders Name Type Priority Associated Diagnoses Orde r Schedule US AAA SCREEN, RADIOLOGY Medical Imaging Routine Screening for AAA (aortic abdominal aneurysm) Expected: 07/28/2023, Expires: 07/27/2024 Scheduled Referrals Name Type Priority Associated Diagnoses Orde r Schedule COLONOSCOPY, GI REFERRAL OP Referral Within 30 days (routine) Screening for malignant neoplasm of colon Ordered: 07/28/2023 Health Maintenance Due Date Last Done Comments LUNG CANCER SCREENING - USE SMARTSET [id number] 2004 Zoster Vaccines (1 of 2) 2004 COLONOSCOPY-EVERY 5 YRS AGES 18-100 02/09/2019 02/09/2014, 08/12/2008 AAA Screening 2019 DTaP,Tdap,and Td Vaccines (2 - Td or Tdap) 08/08/2019 08/07/2009 *BASELINE EKG FOR HTN 02/12/2022 COVID-19 Vaccine (1 - 2022- season) 2023 Influenza Vaccine (FLU shot) (#1) 2023 03/12/2019, 07/10/2016, 02/01/2015, Additional history exists GFR 12/06/2023 12/05/2022, 09/2021, 12/02/2021, Additional history exists Depression Screening 05/27/2024 05/27/2023 Diabetes Screening 12/05/2025 12/05/2022, 1 , 02/06/2022, [...] as of this encounter Visit Diagnoses Diagnosis Screening for AAA (aortic abdominal aneurysm)- Primary Screening for other and unspecified cardiovascular conditions Screening for malignant neoplasm of colon documented in this encounter Advance Directives Documents on File Type Date Recorded Patient Generator Operator Expl anation Power of Ordnance Engineer 02/22/2019 POWER OF A TTORNEY - LIVING WILL Care Teams Press Operator Helper Relationship Specialty Start Date End Date Davi Valencia DO [address] [place] [address] PCP - General Internal Medicine 12/10/21 documented as of this encounter
--- OUTSIDE RECORDS SUMMARY | 2023-12-25 08:31 | External Medical Summary | Summary of Care ---
Author Name Unknown Organization [facility] Address [address] [place] [address] Phone [phone] Care Team Providers Care Retail Custodial Associate Name Role Phone Davi Valencia Primary Care Provid er Reason for Visit * - Authorized Specialty Diagnoses / Procedures Referred By Akshat t Referred To Contact Referral ID Status Reason Start Date Expiration Date V isits Requested Visits Authorized [id number] Authorized 06/05/2023 06/03/[id number] Encounter Details Date Type Department Care Team (Latest Contact Info) Description 08/11/2023 12:00 PM EDT [facility] [address] [place] [address] Tamra Crooks MD [address] [place] [address] Moderate alcohol-induced major neurocognitive disorder, amnestic confabulatory type, with moderate or severe use disorder (HCC)*; Major depressive disorder, recurrent episode, moderate (HCC); Generalized anxiety disorder; Psychosis, unspecified psychosis type (HCC); Severe dementia associated with alcoholism, with psychotic disturbance (HCC); Mood disorder (HCC) Allergies No known active allergiesdocumented as of this encounter (statuses as of 08/11/2023) Medications Medication Sig Dispensed Refills Start Date [...] 60 Tablet 3 08/11/2023 Active Citalopram Hydrobromide 10 [...] as of this encounter (statuses as of 08/11/2023) Active Problems Problem Noted Date Diagnosed Date [...] as of this encounter (statuses as of 08/11/2023) Resolved Problems Problem Noted Date Diagnosed Date Resolved Date Unspecified dementia, unspec ified severity, without behavioral disturbance, psychotic disturbance, mood disturbance, and anxiety 04/04/2022 05/30/2023 HTN, goal below 140/80 05/11/201208/09 Erectile dysfunction 01/27/2012 022 Psoriatic arthropathy 08/01/20112017 documented as of this encounter (statuses as of 08/11/2023) Immunizations Name Administration Dates Next Due Pneumococcal Conjugate Vacci ne, 20-valent ([id number]) 12/10/2021 Pneumococcal Polysaccharide PPV23 (Pneumovax) 04/24/2012 Season [...] Progress Notes * Tamra Crooks MD - 08/11/2023 12:12 PM EDT OUTPATIENT PSYCHIATRY RETURN VISIT DIVISION OF PSYCHIATRY [place] [address] Name: Jame Villalobos : 1955 Date and Time Patient was Seen: 08/11/2023 at 12:12 PM After connecting through televideo, patient was verified with two unique identifiers. Patient (or authorized legal patient relations representative) was then informed that this was [...] that I have reviewed their record in [employer] and presented the opportunity for them to ask any questions regarding the visit today. The patient agreed to participate. Patient location: HOME. I was not in a hospital or clinic location. After connecting through televideo, patient was verified with two unique identifiers. Patient (or authorized legal patient relations representative) was then informed that this was a Telemedicine visit and being conducted confidentially over secure lines. Methods to assure confidentiality were taken. Patient acknowledged consent and understanding of privacy and security of the Telemedicine visit. The patient agreed to participate. CC: Follow up visit Depression, anxiety, memory issues and psychosis INTERVAL HISTORY: Ben and Em were present during the appointment. Pt said that he is doing the same since his last visit. He said he continues to be depressed and anxious, most days, mostly situational and on and off during the day. He said that he is stressed about his sister and he has not seen her in a long time. Ben is his legal guardian appointed through [employer] and Ben helps him with all finances. Pt said he still gets depressed when he thinks about his sister. He denied any other stressors. Ben takes very good care of him and has no concerns. Ben said that he is doing pretty [...] Psychosis: None reported Jerrica: None reported PTSD: Some bad dreams, wakes up at times and goes back to sleep Panic attacks: None reported Memory issues: None reported Side effects: None reported D+A Use Alcohol: [...] MG PO TABS Take by mouth daily. Sildenafil Citrate 100 MG Oral Tablet Take by mouth. (Patient not taking: Reported on 05/27/2023) amLODIPine Besylate 10 MG Oral Tablet (Norvasc) TAKE 1 TABLET BY MOUTH EVERY DAY IN THE MORNING 30 Tablet 5 Lisinopril 10 MG Oral Tablet (Prinivil) TAKE 1 TABLET BY MOUTH EVERY DAY IN THE MORNING 90 Tablet 1 Mavyret 100-40 MG Oral Tablet (glecaprevir-pibrentasvir 100-40 mg per tab) Take one packet (all 3 tabs) once daily with food. 84 Tablet 1 Thiamine HCl 100 MG Oral Tablet (vitamin B-1) TAKE 1 TABLET BY MOUTH EVERY MORNING 90 Tablet 1 Citalopram Hydrobromide 10 MG Oral Tablet (CeleXA) Take 1 Tablet by mouth in the morning. With breakfast. 30 Tablet 1 Donepezil HCl 10 MG Oral Tablet (Aricept) Take 1 Tablet by mouth daily with dinner. 30 Tablet 1 QUEtiapine Fumarate 300 MG Oral Tablet (SEROquel) Take 1 Tablet by mouth at bedtime. 30 Tablet 1 No current facility-administered medications for this visit. RECENT LABS/IMAGING: No results found for this or any previous visit (from the past 672 hour(s)). VITALS There were no vitals filed for this visit. Wt Readings from Last 3 Encounters: 05/27/23 72.3 kg (159 lb 6.4 oz) 04/01/23 68.4 kg (150 lb 12.8 oz) 02/10/23 64.4 kg (142 lb) There is no height or weight on file to calculate BMI. CURRENT MEDICATIONS: Current Outpatient Medications Medication Sig Dispense Refill ASPIRIN 81 MG PO TABS Take by mouth daily. Sildenafil Citrate 100 MG Oral Tablet Take by mouth. (Patient not taking: Reported on 05/27/2023) amLODIPine Besylate 10 MG Oral Tablet (Norvasc) TAKE 1 TABLET BY MOUTH EVERY DAY IN THE MORNING 30 Tablet 5 Lisinopril 10 MG Oral Tablet (Prinivil) TAKE 1 TABLET BY MOUTH EVERY DAY IN THE MORNING 90 Tablet 1 Mavyret 100-40 MG Oral Tablet (glecaprevir-pibrentasvir 100-40 mg per tab) Take one packet (all 3 tabs) once daily with food. 84 Tablet 1 Thiamine HCl 100 MG Oral Tablet (vitamin B-1) TAKE 1 TABLET BY MOUTH EVERY MORNING 90 Tablet 1 Citalopram Hydrobromide 10 MG Oral Tablet (CeleXA) Take 1 Tablet by mouth in the morning. With breakfast. 30 Tablet 1 Donepezil HCl 10 MG Oral Tablet (Aricept) Take 1 Tablet by mouth daily with dinner. 30 Tablet 1 QUEtiapine Fumarate 300 MG Oral Tablet (SEROquel) [...] rate, normal volume and normal tone Mood: "anxious and depressed" Affect: Euthymic, congruent with mood, normal range, appropriate Thought Process: Linear and logical Thought content: Denied suicidal or homicidal ideation. No delusions elicited Perception: Denied any auditory or visual hallucinations Insight: Good Judgment: Good Orientation: Oriented to person, place and time Attention/Concentration: Good Memory: Grossly intact Language: Fluent Fund of Knowledge: Adequate [place]UMB[place]-SUICIDE [...] for higher level of care (Inpatient or [facility]) Consultation with Emergency Services as appropriate If patient not admitted: Complete or review crisis plan with patient Discuss risk/protective factors and reasons for living Advise removal of means Consider family or collateral contact to promote safety Schedule follow up care consistent with assessment ASSESSMENT AND PLAN: Major neurocognitive disorder, secondary to alcohol use - Continue donepezil 10 mg Po Dinner. - Continue memantine 5 mg PO BID Major depressive disorder, recurrent, moderate - Continue the citalopram 10 mg Po daily with breakfast Generalized anxiety disorder - Continue citalopram Psychotic disorder unspecified - Continue quetiapine 300 mg PO HS Laboratory tests: None Therapy: None RTC: in [...] to the urgency and severityof symptoms. Jame Wcik Cancharanjit was able to verbalize understanding of the [...] above medication management: 17 minutes Billing code: [id number] and [id number] TREATMENT PLAN: DATE PROBLEM STATUS (New, Stable, Improved, etc.) INTERVENTIONS 08/11/2023 Memory issues Stable Medication management Depression Improving Anxiety Improving Psychosis Improving This treatment plan was most recently reviewed and discussed with the patient on the date(s) listedabove. He and/or family had the opportunity to ask questions and agreed with the treatment plan andcourse of care on that date. Tamra Crooks MD Psychiatrist, [facility] 08/11/2023 documented in this encounter Plan of Treatment Upcoming Encounters Date Type Department Care Team (Late st Contact Info) Description 08/12/2023 11:30 AM EDT Imaging Radiology, [address] [phone] 08/19/2023 7:40 AM EDT Pharmacy Hepatology, [place] [address] [place] [address] [place] Pharmacist Hepatology [address] [place] [address] 08/21/2023 9:30 AM EDT Laboratory Laboratory Patient Service [address] [phone] [facility] [address] [address] 08/27/2023 3:20 PM EDT Office Visit [facility] [address] [place] [phone] Davi Valencia, [address] [place] [address] 09/15/2023 2:00 PM EDT Telemedicine Psychiatry, [place] [address] [place] [address] Tamra Crooks MD [address] [place] [address] Health Maintenance Due Date Last Done Comments LUNG CANCER SCREENING - USE SMARTSET 95320 2004 Zoster Vaccines (1 of 2) 2004 COLONOSCOPY-EVERY 5 YRS AGES 18-100 02/09/2019 02/09/2014, 08/12/2008 AAA Screening 2019 DTaP,Tdap,and Td Vaccines (2 - Td or Tdap) 08/08/2019 08/07/2009 *BASELINE EKG FOR HTN 02/12/2022 COVID-19 Vaccine ( - season) 2023 GFR 12/06/2023 12/05/2022, 09/2021, 12/02/2021, [...] moderate or severe use disorder (HCC)- Primary Major depressive disorder, recurrent episode, moderate (HCC) Major depressive disorder, recurrent episode, moderate Generalized anxiety disorder Psychosis, 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
--- OUTSIDE RECORDS SUMMARY | 2023-12-25 08:31 | External Medical Summary | Summary of Care ---
Author Name Unknown Organization [facility] Address [address] [facility] [place] [address] Phone [phone] Care Team Providers Care Weigher Production Name Role Phone Davi Valencia DO Primary Care Provid er Reason for Referral * Ancillary Services (Within 30 days (routine)) - Authorized Specialty Diagnoses / Procedures Referred By Akshat gan Referred To Contact Gastroenterology Diagnoses Screening for malignant neoplasm of colon Davi Valencia DO [address] [place] [address] Referral ID Status Reason Start Date Expiration Date Visits Requested Visits Authorized [id number] Authorized Ancillary Services Required 07/28/2023 1 1 Question Answer Referral Priority Within 30 days (routine) Where should this appointment be scheduled? [facility] Comments ALERT: Do not order for pediatric patients (18 years or younger). Cancel off screen and order PEDS GASTROENTEROLOGY CONSULT (Type: 1 visit only-Evaluate and Treat) The following Pt. Instructions are available: - Gastro Colonoscopy Prep Instructions [[id number]] - Gastro Colonoscopy Prep Instructions (Maltese Version) [[id number]] Go to the Pt. Instructions section within the Visit Navigator to access. Colonoscopy ASGE Guidelines: Average risk screening (begin at age 50, 10 year intervals) ADDITIONAL INFORMATION 1. Is the patient on Coumadin? No 2. Is the patient on Pradaxa? No Reason for Visit * Reason Onset Date Comments Appointment 07/30/2023 LM 07/29 Colonosc opy Encounter Details Date Type Department Care Team ([facility] Contact Info) Description 07/15/2023 Telephone [facility] [address] [place] [phone] Davi Valencia, [address] [place] [address] Appointment (SUDHA 07/29 Colonoscopy ) Allergies No [...] Next Due Pneumococcal Conjugate Vacci ne, 20-valent ([id number]) 12/10/2021 Pneumococcal Polysaccharide PPV23 (Pneumovax) 04/24/2012 Season [...] Description 08/11/2023 12:00 PM EDT Telemedicine Psychiatry, [place] [address] [place] [address] Tamra Crooks MD [address] [place] [address] 08/12/2023 11:30 AM EDT Imaging Radiology, [address] [phone] 08/19/2023 7:40 AM EDT Pharmacy Hepatology, [place] [address] [place] [address] [place], Pharmacist Hepatology [address] [place] [address] 08/21/2023 9:30 AM EDT Laboratory Laboratory Patient Service [address] [phone] [address] 08/27/2023 3:20 PM EDT Office Visit [address] [phone] Davi Valencia DO [address] [place] [address] Scheduled Orders Name Type Priority Associated Diagnoses [...] Comments LUNG CANCER SCREENING - USE SMARTSET 42498 2004 Zoster Vaccines (1 of 2) 2004 [...] Documents on File Type Date Recorded Patient Family Nurse Practitioner Expl anation Power of Body Mechanic Apprentice 02/22/2019 POWER OF A TTORNEY - LIVING WILL Care Teams Weigher Production Relationship Specialty Start Date End Date Davi Valencia DO [address] [place] [address] PCP - General Internal Medicine 12/10/21 documented as of this encounter
--- OUTSIDE RECORDS SUMMARY | 2023-12-25 08:31 | External Medical Summary ---
Author Name Unknown Address Unknown Organization K01:[place] [place] [address] [place] [address] Laboratory Report Ordering Provider Test Date Status LULA GOMEZVENITA 08/12/2023 11:58:11 Final Observation Date Value Abnormality Reference (Units ) Status TSH 08/12/2023 11:58:11 0.75 0.27-4.20 (uIU/mL) Final Performing Location LABORATORY [facility] - [address] [place] [address]
--- OUTSIDE RECORDS SUMMARY | 2023-12-25 08:31 | External Medical Summary | Summary of Care ---
Author Name Unknown Organization [facility] Address [address] [facility] [place] [address] Phone [phone] Care Team Providers Care Radiological Equipment Specialist Name Role Phone Davi Valencia DO Primary Care Provid er Reason for Referral * Ancillary Services (Within 30 days (routine)) - Authorized Specialty Diagnoses / Procedures Referred By Akshat gan Referred To Contact Gastroenterology Diagnoses Screening for malignant neoplasm of colon Davi Valencia DO [address] [place] [address] Referral ID Status Reason Start Date Expiration Date Visits Requested Visits Authorized [id number] Authorized Ancillary Services Required 07/28/2023 1 1 Question Answer Referral Priority Within 30 days (routine) Where should this appointment be scheduled? [facility] Comments ALERT: Do not order for pediatric patients (18 years or younger). Cancel off screen and order PEDS GASTROENTEROLOGY CONSULT (Type: 1 visit only-Evaluate and Treat) The following Pt. Instructions are available: - Gastro Colonoscopy Prep Instructions [[id number]] - Gastro Colonoscopy Prep Instructions (Czech Version) [[id number]] Go to the Pt. Instructions section within the Visit Navigator to access. Colonoscopy ASGE Guidelines: Average risk screening (begin at age 50, 10 year intervals) ADDITIONAL INFORMATION 1. Is the patient on Coumadin? No 2. Is the patient on Pradaxa? No Reason for Visit * Reason Onset Date Comments Appointment 07/30/2023 LM 07/29 Colonosc opy Encounter Details Date Type Department Care Team ([facility] Contact Info) Description 07/15/2023 Telephone [facility] [address] [place] [phone] Davi Valencia, [address] [place] [address] Appointment (LM 07/29 Colonoscopy ) Allergies No known active allergiesdocumented as of this encounter (statuses as of 07/30/2023) Medications Medication Sig Dispensed Refills Start Date [...] as of this encounter (statuses as of 07/30/2023) Active Problems Problem Noted Date Diagnosed Date [...] as of this encounter (statuses as of 07/30/2023) Resolved Problems Problem Noted Date Diagnosed Date Resolved Date Unspecified dementia, unspec ified severity, without behavioral disturbance, psychotic disturbance, mood disturbance, and anxiety 04/04/2022 05/30/2023 HTN, goal below 140/80 05/11/201208/09 Erectile dysfunction 01/27/2012 022 Psoriatic arthropathy 08/01/20112017 documented as of this encounter (statuses as of 07/30/2023) Immunizations Name Administration Dates Next Due Pneumococcal Conjugate Vacci ne, 20-valent ([id number]) 12/10/2021 Pneumococcal Polysaccharide PPV23 (Pneumovax) 04/24/2012 Season [...] Description 08/11/2023 12:00 PM EDT Telemedicine Psychiatry, [place] [address] [place] [address] Tamra Crooks MD [address] [place] [address] 08/12/2023 11:30 AM EDT Imaging Radiology, [address] [phone] 08/19/2023 7:40 AM EDT Pharmacy Hepatology, [place] [address] [place] [address] [place], Pharmacist Hepatology [address] [place] [address] 08/21/2023 9:30 AM EDT Laboratory Laboratory Patient Service [address] [phone] [address] 08/27/2023 3:20 PM EDT Office Visit [address] [phone] Davi Valencia DO [address] [place] [address] Scheduled Orders Name Type Priority Associated Diagnoses [...] Comments LUNG CANCER SCREENING - USE SMARTSET 63725 2004 Zoster Vaccines (1 of 2) 2004 [...] Documents on File Type Date Recorded Patient [employer] Pe Teacher Expl anation Power of Lot Attendant 02/22/2019 POWER OF A TTORNEY - LIVING WILL Care Teams Radiological Equipment Specialist Relationship Specialty Start Date End Date Davi Valencia DO [address] [place] [address] PCP - General Internal Medicine 12/10/21 documented as of this encounter
--- OUTSIDE RECORDS SUMMARY | 2023-12-25 08:31 | External Medical Summary | Summary of Care ---
Author Name Unknown Organization [facility] Address [address] [facility] [address] Phone [phone] Care Team Providers Care Psychiatry Resident Name Role Phone Davi Valencia DO Primary Care Provid er Reason for Visit * Reason Onset Date Comments Health Maintenance 07/15/2023 Encounter Details Date Type Department Care Team ([facility] st Contact Info) Description 07/15/[address] [phone] Davi Valencia DO [address] [place] [address] Health Maintenance Allergies No known active allergiesdocumented as of this encounter (statuses as of 07/22/2023) Medications Medication Sig Dispensed Refills Start Date [...] daily with dinner. 30 Tablet 1 06/30/2023 Active QUEtiapine Fumarate 300 MG Oral Tablet (SEROquel)Indications: Severe dementia associated with alcoholism, with psychotic disturbance (HCC) Take 1 Tablet by mouth at bedtime. 30 Tablet 1 06/30/2023 Active documented as of this encounter (statuses as of 07/22/2023) Active Problems Problem Noted Date Diagnosed Date [...] as of this encounter (statuses as of 07/22/2023) Resolved Problems Problem Noted Date Diagnosed Date Resolved Date Unspecified dementia, unspec ified severity, without behavioral disturbance, psychotic disturbance, mood disturbance, and anxiety 04/04/2022 05/30/2023 HTN, goal below 140/80 05/11/201208/09 Erectile dysfunction 01/27/2012 022 Psoriatic arthropathy 08/01/20112017 documented as of this encounter (statuses as of 07/22/2023) Immunizations Name Administration Dates Next Due Pneumococcal Conjugate Vacci ne, 20-valent ([id number]) 12/10/2021 Pneumococcal Polysaccharide PPV23 (Pneumovax) 04/24/2012 Season [...] encounter Miscellaneous Notes * Telephone Encounter - Shanelle Love LPN - 07/15/2023 8:31 AM EDT Care Gaps Comprehensive Care Outreach Last Office/Telemedicine Visit: 05/27/2023 (in office), 05/01/2023 (telemedicine) Next Office Visit: 08/27/2023 Hemoglobin AIC Results: Lab Results Component Value Date/Time HEMOGLOBIN A1C - [facility] 5.6 02/06/2022 04:07 PM BP Readings from Last 1 Encounters: 05/27/23 114/72 Reviewed Health Maintenance below COLONOSCOPY-EVERY 5 YRS AGES 18-100 02/09/2019 AAA Screening Never done Care Gap Outreach Action Taken: Left message and MyChart message sent documented in this encounter Plan of Treatment Upcoming Encounters Date Type Department Care Team ([facility] st Contact Info) Description 08/11/2023 12:00 PM EDT Telemedicine Psychiatry, [place] [address] [place] [address] Tamra Crooks MD [address] [place] [address] 08/21/2023 9:30 AM EDT Laboratory Laboratory Patient Service [facility] [address] [place] [phone] [phone] 08/27/2023 3:20 PM EDT Office Visit Family [facility] [address] [place] [phone] Davi Valencia DO [address] [place] [address] Health Maintenance Due Date Last Done Comments LUNG CANCER SCREENING - USE SMARTSET 63960 2004 Zoster Vaccines (1 of 2) 2004 COLONOSCOPY-EVERY 5 YRS AGES 18-100 02/09/2019 02/09/2014, 08/12/2008 AAA Screening 2019 DTaP,Tdap,and Td Vaccines (2 - Td or Tdap) 08/08/2019 08/07/2009 *BASELINE EKG FOR HTN 02/12/2022 COVID-19 Vaccine (1 - season) 2023 Influenza Vaccine (FLU shot) (#1) [...] Documents on File Type Date Recorded Patient Medical Leader Expl anation Power of Garnishment Specialist 02/22/2019 POWER OF A TTORNEY - LIVING WILL Care Teams Psychiatry Resident Relationship Specialty Start Date End Date Davi Valencia DO [address] [place] [address] PCP - General Internal Medicine 12/10/21 documented as of this encounter
--- OUTSIDE RECORDS SUMMARY | 2023-12-25 08:31 | External Medical Summary | Summary of Care ---
Author Name Unknown Organization [facility] Address [address] [place] [address] Phone [phone] Care Team Providers Care Continuous Process Tanner Rotary Drum Name Role Phone Davi Valencia Primary Care Provid er Reason for Visit * Reason Onset Date Comments Medication Refill 07/01/2023 Encounter Details Date Type Department Care Team (Late st Contact Info) Description 07/01/2023 Refill [facility], [place] [address] [place] [address] Tamra Crooks MD [address] [place] [address] Allergies No known active allergiesdocumented as of this encounter (statuses as of 07/01/2023) Medications Medication Sig Dispensed Refills Start Date [...] as of this encounter (statuses as of 07/01/2023) Active Problems Problem Noted Date Diagnosed Date [...] as of this encounter (statuses as of 07/01/2023) Resolved Problems Problem Noted Date Diagnosed Date Resolved Date Unspecified dementia, unspec ified severity, without behavioral disturbance, psychotic disturbance, mood disturbance, and anxiety 04/04/2022 05/30/2023 HTN, goal below 140/80 05/11/201208/09 Erectile dysfunction 01/27/2012 022 Psoriatic arthropathy 08/01/20112017 documented as of this encounter (statuses as of 07/01/2023) Immunizations Name Administration Dates Next Due Pneumococcal Conjugate Vacci ne, 20-valent ([id number]) 12/10/2021 Pneumococcal Polysaccharide PPV23 (Pneumovax) 04/24/2012 Season [...] encounter Miscellaneous Notes * Telephone Encounter - Ivett Bonilla PHARM Tech - 07/01/2023 11:09 AM EST VM received over weekend for seroquel refill. Already addressed at telemed appt on 06/30/23 Thank You, Ivett Bonilla [facility] [employer] Director II Centralized Clinical Pharmacy Services (CCPS) (Formerly Telepharmacy) 07/01/2023, 11:10 AM documented in this encounter Plan of Treatment Upcoming Encounters Date Type Department Care Team (Late st Contact Info) Description 07/22/2023 7:00 AM EDT Pharmacy Hepatology, [place] [address] [place] [address] [place], Pharmacist Hepatology [address] [place] [address] 08/11/2023 12:00 PM EDT Telemedicine Psychiatry, [place] [address] [place], [place] [phone] Tamra Crooks MD [address] [place] [phone] 08/21/2023 9:30 AM EDT Laboratory Laboratory Patient Service [address] [phone] [id number] 08/27/2023 3:20 PM EDT Office Visit [address] [address] Davi Valencia, [address] [address] Health Maintenance Due Date Last Done Comments LUNG CANCER SCREENING - USE SMARTSET 44301 2004 Zoster Vaccines (1 of 2) 2004 [...] Documents on File Type Date Recorded Patient Apron Cleaner Expl anation Power of Antique Repairer 02/22/2019 POWER OF A TTORNEY - LIVING WILL Care Teams Continuous Process Tanner Rotary Drum Relationship Specialty Start Date End Date Davi Valencia DO [address] [place] [address] PCP - General Internal Medicine 12/10/21 documented as of this encounter
--- OUTSIDE RECORDS SUMMARY | 2023-12-25 08:31 | External Medical Summary | Summary of Care ---
Author Name Unknown Organization [facility] Address [address] [place] [address] Phone [phone] Care Team Providers Care Typesetters Printer Name Role Phone DaxmaeganDavi DO Primary Care Provid er Reason for Visit * Reason Comments Dosage Adjustment Via Phone (anticoag Cl inic) Status Check Encounter Details Date Type Department Care Team (Late st Contact Info) Description 07/22/2023 7:00 AM EDT Pharmacy Hepatology, [place] [address] [place], [place] [phone] [place], Pharmacist Hepatology [address] [place], [place] [phone] Chronic hepatitis C without hepatic coma (HCC)* [...] Next Due Pneumococcal Conjugate Vacci ne, 20-valent ([id number]) 12/10/2021 Pneumococcal Polysaccharide PPV23 (Pneumovax) 04/24/2012 Season [...] this encounter Progress Notes * Xin Russell, [facility] - 07/22/2023 2:40 PM EDT MTM Hepatitis C Pre-Treatment Follow-Up [...] discuss the patient's health insurance status. Per [facility] prior authorization request determination, "[facility] advised their records indicate patient is eligible for Medicare. Unfortunately either [employer] appeal will need to be initiated or if patient advising they dont have coverage and only [facility] they must contact their county assistance office or rn field case manager for [place] to update their file." Per [...] phone and spoke with Ben. He stated they have cancelled the [employer] plan, which should terminate the end of this month. Once the [employer] plan has termed, they will be enrolling him in a Part D plan. MTM Plan: Will follow-up again next month to obtain his new insurance information. Xin Russell PharmD, [facility] Clinical Pharmacist, Hepatology 07/22/2023 2:43 PM documented in this encounter Plan of Treatment Upcoming Encounters Date Type Department Care Team (Late st Contact Info) Description 08/11/2023 12:00 PM EDT Telemedicine Psychiatry, [address] [address] Tamra Crooks MD [address] [place] [address] 08/19/2023 7:40 AM EDT Pharmacy Hepatology, [place] [address] [place] [address] [place], Pharmacist Hepatology [address] [place] [address] 08/21/2023 9:30 AM EDT Laboratory Laboratory Patient Service Center, [place] [address] [place] [address] [place], [facility] [address] [place] [address] 08/27/2023 3:20 PM EDT Office Visit [facility] [address] [place] [address] Davi Valencia, [address] [place] [address] Health Maintenance Due Date Last Done Comments LUNG CANCER SCREENING - USE SMARTSET 66753 2004 Zoster Vaccines (1 of 2) 2004 [...] Documents on File Type Date Recorded 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
--- OUTSIDE RECORDS SUMMARY | 2023-12-25 08:31 | External Medical Summary | Summary of Care ---
Author Name Unknown Organization [facility] Address [address] [place] [facility] [place] [address] Phone [phone] Care Team Providers Care Claims Adjustor Name Role Phone Davi Valencia DO Primary Care Provid er Reason for Referral * Ancillary Services (Within 30 days (routine)) - Authorized Specialty Diagnoses / Procedures Referred By Akshat gan Referred To Contact Gastroenterology Diagnoses Screening for malignant neoplasm of colon Davi Valencia DO [address] [place] [address] Referral ID Status Reason Start Date Expiration Date Visits Requested Visits Authorized [id number] Authorized Ancillary Services Required 07/28/2023 1 1 Question Answer Referral Priority Within 30 days (routine) Where should this appointment be scheduled? [facility] Comments ALERT: Do not order for pediatric patients (18 years or younger). Cancel off screen and order PEDS GASTROENTEROLOGY CONSULT (Type: 1 visit only-Evaluate and Treat) The following Pt. Instructions are available: - Gastro Colonoscopy Prep Instructions [[id number]] - Gastro Colonoscopy Prep Instructions (Turkish Version) [[id number]] Go to the Pt. Instructions section within the Visit Navigator to access. Colonoscopy ASGE Guidelines: Average risk screening (begin at age 50, 10 year intervals) ADDITIONAL INFORMATION 1. Is the patient on Coumadin? No 2. Is the patient on Pradaxa? No Reason for Visit * Reason Onset Date Comments Health Maintenance 07/15/2023 Encounter Details Date Type Department Care Team ([facility] Contact Info) Description 07/15/2023 Telephone Family Practice [facility] [address] [place] [address] Davi Valencia, DO [address] [place] [address] Health Maintenance Allergies No known active allergiesdocumented as of this encounter (statuses as of 07/28/2023) Medications Medication Sig Dispensed Refills Start Date [...] as of this encounter (statuses as of 07/28/2023) Active Problems Problem Noted Date Diagnosed Date [...] as of this encounter (statuses as of 07/28/2023) Resolved Problems Problem Noted Date Diagnosed Date Resolved Date Unspecified dementia, unspec ified severity, without behavioral disturbance, psychotic disturbance, mood disturbance, and anxiety 04/04/2022 05/30/2023 HTN, goal below 140/80 05/11/201208/09 Erectile dysfunction 01/27/2012 022 Psoriatic arthropathy 08/01/20112017 documented as of this encounter (statuses as of 07/28/2023) Immunizations Name Administration Dates Next Due Pneumococcal Conjugate Vacci ne, 20-valent ([id number]) 12/10/2021 Pneumococcal Polysaccharide PPV23 (Pneumovax) 04/24/2012 Season [...] as of this encounter Miscellaneous Notes * Addendum Note - Shanelle Cochran LPN [...] Results Component Value Date/Time HEMOGLOBIN A1C - [facility] 5.6 02/06/2022 04:07 PM BP Readings from Last 1 Encounters: 05/27/23 114/72 Reviewed Health Maintenance below COLONOSCOPY-EVERY 5 YRS AGES 18-100 02/09/2019 AAA Screening Never done Care Gap Outreach Action Taken: Left message and MyChart message sent documented in this encounter Plan of Treatment Upcoming Encounters Date Type Department Care Team (Late st Contact Info) Description 08/11/2023 12:00 PM EDT Telemedicine Psychiatry, [place] [address] [place] [address] Tamra Crooks MD [address] [place] [address] 08/12/2023 11:30 AM EDT Imaging Radiology, [address] [phone] 08/19/2023 7:40 AM EDT Pharmacy Hepatology, [place] [address] [place] [address] [place], Pharmacist Hepatology 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
--- OUTSIDE RECORDS SUMMARY | 2023-12-25 08:31 | External Medical Summary | Summary of Care ---
Author Name Unknown Organization [facility] Address [address] [facility] [place] [address] Phone [phone] Care Team Providers Care Metals Analyst Name Role Phone Davi Valencia DO Primary Care Provid er Reason for Visit * Reason Onset Date Comments Health Maintenance 07/15/2023 Encounter Details Date Type Department Care Team ([facility] st Contact Info) Description 07/15/[address] [address] Davi Valencia DO [address] [place] [address] Health Maintenance Allergies No known active allergiesdocumented as of this encounter (statuses as of 07/15/2023) Medications Medication Sig Dispensed Refills Start Date [...] as of this encounter (statuses as of 07/15/2023) Active Problems Problem Noted Date Diagnosed Date [...] as of this encounter (statuses as of 07/15/2023) Resolved Problems Problem Noted Date Diagnosed Date Resolved Date Unspecified dementia, unspec ified severity, without behavioral disturbance, psychotic disturbance, mood disturbance, and anxiety 04/04/2022 05/30/2023 HTN, goal below 140/80 05/11/201208/09 Erectile dysfunction 01/27/2012 022 Psoriatic arthropathy 08/01/20112017 documented as of this encounter (statuses as of 07/15/2023) Immunizations Name Administration Dates Next Due Pneumococcal Conjugate Vacci ne, 20-valent ([id number]) 12/10/2021 Pneumococcal Polysaccharide PPV23 (Pneumovax) 04/24/2012 Season [...] Description 07/22/2023 7:00 AM EDT Pharmacy Hepatology, [place] [address] [place] [address] [place], Pharmacist Hepatology [address] [place] [address] 08/11/2023 12:00 PM EDT Telemedicine Psychiatry, [place] [address] [place] [address] Tamra Crooks MD [address] [place] [address] 08/21/2023 9:30 AM EDT [facility] [address] [place] [address] [address] 08/27/2023 3:20 PM EDT Office Visit [facility] [address] [place] [phone] Davi Valencia DO [address] [place] [address] Health Maintenance Due Date Last Done Comments LUNG CANCER SCREENING - USE SMARTSET 48148 2004 Zoster Vaccines (1 of 2) 2004 COLONOSCOPY-EVERY 5 YRS AGES 18-100 02/09/2019 02/09/2014, 08/12/2008 AAA Screening 2019 DTaP,Tdap,and Td Vaccines (2 - Td or Tdap) 08/08/2019 08/07/2009 *BASELINE EKG FOR HTN 02/12/2022 COVID-19 Vaccine ( season) 2023 Influenza Vaccine (FLU shot) (#1) [...] Documents on File Type Date Recorded 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
--- OUTSIDE RECORDS SUMMARY | 2023-12-25 08:31 | External Medical Summary | Summary of Care ---
Author Name Unknown Organization [facility] Address [address] [place] [place] [address] Phone [phone] Care Team Providers Care Stock Control Clerk Name Role Phone Davi Valencia DO Primary Care Provid er Reason for Referral * Ancillary Services (Within 30 days (routine)) - Authorized Specialty Diagnoses / Procedures Referred By Akshat gan Referred To Contact Gastroenterology Diagnoses Screening for malignant neoplasm of colon Davi Valencia DO [address] [place] [address] Referral ID Status Reason Start Date Expiration Date Visits Requested Visits Authorized [id number] Authorized Ancillary Services Required 07/28/2023 1 1 Question Answer Referral Priority Within 30 days (routine) Where should this appointment be scheduled? [facility]indy Comments ALERT: Do not order for pediatric patients (18 years or younger). Cancel off screen and order PEDS GASTROENTEROLOGY CONSULT (Type: 1 visit only-Evaluate and Treat) The following Pt. Instructions are available: - Gastro Colonoscopy Prep Instructions [[id number]] - Gastro Colonoscopy Prep Instructions (Swedish Version) [[id number]] Go to the Pt. Instructions section within the Visit Navigator to access. Colonoscopy ASGE Guidelines: Average risk screening (begin at age 50, 10 year intervals) ADDITIONAL INFORMATION 1. Is the patient on Coumadin? No 2. Is the patient on Pradaxa? No Reason for Visit * Reason Onset Date Comments Health Maintenance 07/15/2023 Appointment 07/30/2023 Lm Encounter Details Date Type Department Care Team ([facility] Contact Info) Description 07/15/2023 Telephone Family [facility] [address] [place] [phone] Davi Valencia, [address] [place] [address] Health Maintenance; Appointment (Lm) Allergies No known active allergiesdocumented as of [...] Next Due Pneumococcal Conjugate Vacci ne, 20-valent ([id number]) 12/10/2021 Pneumococcal Polysaccharide PPV23 (Pneumovax) 04/24/2012 Season [...] Description 08/11/2023 12:00 PM EDT Telemedicine Psychiatry, [place] [address] [place] [address] Tamra Crooks MD [address] [place] [address] 08/12/2023 11:30 AM EDT Imaging Radiology, [address] [phone] 08/19/2023 7:40 AM EDT Pharmacy Hepatology, [place] [address] [place] [address] [place], Pharmacist Hepatology [address] [place] [address] 08/21/2023 9:30 AM EDT Laboratory Laboratory Patient Service [address] [phone] [address] 08/27/2023 3:20 PM EDT Office Visit [address] [phone] Davi Valencia DO [address] [place] [address] Scheduled Orders Name Type Priority Associated Diagnoses [...] Comments LUNG CANCER SCREENING - USE SMARTSET 78271 2004 Zoster Vaccines (1 of 2) 2004 [...] Documents on File Type Date Recorded Patient Staff Submarine Warfare Officer Expl anation Power of Scratcher Tender 02/22/2019 POWER OF A TTORNEY - LIVING WILL Care Teams Stock Control Clerk Relationship Specialty Start Date End Date Davi Valencia DO [address] [place] [address] PCP - General Internal Medicine 12/10/21 documented as of this encounter
--- OUTSIDE RECORDS SUMMARY | 2023-12-25 08:31 | External Medical Summary ---
Author Name Unknown Address Unknown Organization K01:LABORATORY [facility] [place], [place] - [facility] [address] [place] [address] Laboratory Report Ordering Provider Test Date Status PAULA GOMEZ 08/12/2023 11:58:11 Final Observation Date Value Abnormality Reference (Units ) Status WBC, Total 08/12/2023 11:58:11 7.80 4.00-10.80 (K/uL) Final RBC 08/12/2023 11:58:11 4.84 4.50-5.25 (M/uL) Final Hemoglobin 08/12/2023 11:58:11 15.5 14.0-16.8 (g/dL) Final HCT 08/12/2023 11:58:11 47.3 40.0-48.4 (%) Final MCV 08/12/2023 11:58:11 97.7 82.0-99.5 (fL) Final MCH 08/12/2023 11:58:11 32.0 27.0-34.0 (pg) Final MCHC 08/12/2023 11:58:11 32.8 32.0-36.0 (g/dL) Final RDW 08/12/2023 11:58:11 13.1 11.5-15.5 (%) Final Platelets 08/12/2023 11:58:11 263 140-400 (K/uL) Final MPV 08/12/2023 11:58:11 11.2 6.6-11.1 (fL) Final Nucleated erythrocytes/100 leukocytes [Ratio] in Blood by Automated count 08/12/2023 11:58:11 0 <=0 (/100 WBCs) Final Performing Location [facility] [place] [place] - [address] [facility] [address] [place] [address]
--- OUTSIDE RECORDS SUMMARY | 2023-12-25 08:31 | External Medical Summary ---
Author Name Unknown Address Unknown Organization K01:LABORATORY [facility] - [address] [place] [address] Laboratory Report Ordering Provider Test Date Status PAULA GOMEZ 08/12/2023 11:58:11 Final Deficient: <20 ng/mL
Ins ufficient: 20-29 ng/mL
Recommended/Optimum:30-50 ng/mL

Vitamin D intoxication is rare. If suspicious of Vitamin D toxicity, evaluation of serum Calcium and PTH is recommended. Observation Date Value Abnormality Reference (Units ) Status 25-OH Vitamin D total 08/12/2023 11:58:11 34 >19 (ng/mL) Final Performing Location LAB[facility]ATORY [facility] [place] - [address] [place] [address]
--- OUTSIDE RECORDS SUMMARY | 2023-12-25 08:31 | External Medical Summary | Summary of Care ---
Author Name Unknown Organization [facility] Address [address] [facility] [place] [address] Phone [phone] Care Team Providers Care Senior Bi Architect Name Role Phone Davi Valencia DO Primary Care Provid er Reason for Referral * Ancillary Services (Within 30 days (routine)) - Authorized Specialty Diagnoses / Procedures Referred By Akshat gan Referred To Contact Gastroenterology Diagnoses Screening for malignant neoplasm of colon Davi Valencia DO [address] [place] [address] Referral ID Status Reason Start Date Expiration Date Visits Requested Visits Authorized [id number] Authorized Ancillary Services Required 07/28/2023 1 1 Question Answer Referral Priority Within 30 days (routine) Where should this appointment be scheduled? Cindy Comments ALERT: Do not order for pediatric patients (18 years or younger). Cancel off screen and order PEDS GASTROENTEROLOGY CONSULT (Type: 1 visit only-Evaluate and Treat) The following Pt. Instructions are available: - Gastro Colonoscopy Prep Instructions [[id number]] - Gastro Colonoscopy Prep Instructions (Estonian Version) [[id number]] Go to the Pt. Instructions section within the Visit Navigator to access. Colonoscopy ASGE Guidelines: Average risk screening (begin at age 50, 10 year intervals) ADDITIONAL INFORMATION 1. Is the patient on Coumadin? No 2. Is the patient on Pradaxa? No Reason for Visit * Reason Onset Date Comments Appointment 07/30/2023 LM 07/29, 08/10 Col onoscopy Encounter Details Date Type Department Care Team ([facility] Contact Info) Description 07/15/2023 Telephone [facility] [address] [place] [phone] Davi Valencia DO [address] [place] [address] Appointment (LM 07/29, 08/10 Colonoscopy ) Allergies [...] Next Due Pneumococcal Conjugate Vacci ne, 20-valent ([id number]) 12/10/2021 Pneumococcal Polysaccharide PPV23 (Pneumovax) 04/24/2012 Season [...] encounter Miscellaneous Notes * Telephone Encounter - Aylin Sprague LPN [...] Upcoming Encounters Date Type Department Care Team ([facility] st Contact Info) Description 08/12/2023 11:30 AM EDT Imaging Radiology, [address] [phone] 08/19/2023 7:40 AM EDT Pharmacy Hepatology, [place] [address] [place] [address] [place], Pharmacist Hepatology [address] [place] [address] 08/21/2023 9:30 AM EDT Laboratory Laboratory Patient Service Center, [address] [phone] [address] 08/27/2023 3:20 PM EDT Office Visit [address] [phone] Davi Valencia, [address] [place] [address] 09/15/2023 2:00 PM EDT Telemedicine [facility], [place] [address] [place] [address] Tamra Crooks MD [address] [place] [address] Scheduled Orders Name Type Priority Associated Diagnoses [...] Comments LUNG CANCER SCREENING - USE SMARTSET 88420 2004 Zoster Vaccines (1 of 2) 2004 [...] on File Type Date Recorded Patient Medical Esthetician Expl anation Power of Wire Winder 02/22/2019 POWER OF A TTORNEY - LIVING WILL Care Teams Senior Bi Architect Relationship Specialty Start Date End Date Davi Valencia DO [address] [place] [address] PCP - General Internal Medicine 12/10/21 documented as of this encounter
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
--- NOTE | 2023-12-25 14:45 | Psychiatric Consultation ---
Date of Consultation December 25, 2023 Impression / Recommendations Impression 68-year-old domiciled by self white male history of hypertension, dementia, anxiety/mood disorder, past history of seizures as per records, psoriatic arthritis, alcohol abuse, past tobacco abuse. patient called 911 reporting low mood and brought to the hospital. Psychiatry consulted for evaluation. Patient presents after complaints of low mood and fear. Patient does not appear to be in an active mood episode. Presents chronic delusions however does not appear to be impacting function or causing safety concerns. Per collateral and patient needs are being met at home. No further concerns for family. Patient appears to be at baseline functioning. Labs reviewed: TSH, CBC, CMP, UA, UDS within expected limits. Not recommending inpatient psychiatric admission and can follow up on an outpatient basis. No safety concerns presented that would necessitate further hospitalization. Overall, I spent a total of 60 minutes with this case including review of chart records, nursing report, review of lab work, direct evaluation of the patient at bedside, counseling the patient, discussion of the patient with the hospitalist provider, discussion with the psychiatric liaison during clinical rounds, g athering collateral, and documentation in the electronic health record. (1) Acute paranoia: (2) Unspecified psychosis not due to a substance or known physiological condition: (3) Cognitive impairment: (4) Tobacco abuse: Plan -Not recommending inpatient psychiatric admission and can follow up on an outpatient basis. -Can resume home psychotropics Psych History Identifying Data 68-year-old domiciled by self white male history of hypertension, dementia, anxiety/mood disorder, past history of seizures as per records, psoriatic arthritis, alcohol abuse, past tobacco abuse. patient called 911 reporting low mood and brought to the hospital. Psychiatry consulted for evaluation. Chief Complaint "My vision went black" History of Present Illness Chart review: Patient last seen in May 2022 for psychosis and discharged on Seroquel and Haldol, at that time had self-care concerns. Patient is chronically delusional and tangential at baseline. Nurse liaison spoke to the family: His sister Yoselyn was initially his POA however he started having increasing delusions towards her. Niece became coguardian's with his cousin Ben. Ben's girlfriend Akanksha is current crepe machine operator and provides regular medication assistance and home visits. No current safety concerns reported by family or crepe machine operator. Em and Ben are planning to live with the patient in the future. The patient reports having "vision changes and was scared". He reports feeling fine now and has no problems seeing. He denies suicidal ideation. He reports having a low mood "some days" but not all the time. He regularly writes music and plays piano and strings and says that he enjoys it. Endorses fair sleep, appetite, energy, concentration. Denies feeling guilty. Feels medications are working and takes them regularly. Denies auditory or visual hallucinations. Says that his sister is trying to hurt him and is no longer in touch with her. Discusses a story where his sister paid someone to hurt him. He feels safe in his surroundings and at home. He denies further needs at home. Says his crepe machine operator is doing a good job. He denies alcohol and drug use. He talks about Ben's children and enjoys spending time with him. They call him "Pappy Hayden" and smiles. Note from liaison nurse: "Rounded on patient for initial interview. Patient met with case management first, he was inappropriate with her and made comments about taking her out on a date. Patient's nephew, Rashmi, came in to visit and was in the room. Patient was happy to see nephew but would make comments about not knowing who Rashmi is. Patient was delusional and paranoid. He was tangential but would tell the same story multiple times. He verbalized that he takes all of his medications as ordered but then states "I only take a blood pressure medication". Patient denies taking any medications for mood and psychiatric symptoms. He has paranoia regarding people attempting to come to his house. Patient verbalized that Em is his paid caregiver but made comments that he is going to fire her when he gets home. Patient asked multiple times if he could be discharged. He is agreeable to wait to speak with the psychiatrist. He denies SI/HI and states "I can control myself". Per patient's nephew, Em is Ben's girlfriend and the crepe machine operator of the patient. He verbalized that he himself is not involved in the patient's care often and that Em or Ben would have the most information. Em's phone number is [phone]. Patient did not sign any ROIs at this time. Em reports that the patient has dementia. Debbi and Ben are his guardians. Lately the patient has been making more inappropriate statements to Em. He became upset when confronted by Ben about this but then apologized to Em. Since being confronted he has been making more statements that he is scared of his sister even though she is not around. His psychiatric medications are currently being changed by psychiatrist, Em was unsure of her name. House being appraised currently, going to move him in with Ben and Em. Em denies having any concerns about the safety of the patient or anyone else. Spoke with patient's sister, Ainsley, by phone who provided collateral. She is not often involved in his care due to his ongoing delusion that she is trying to harm him. Per Ainsley, the patient has a history of drug and alcohol abuse. He has a current diagnosis of alcoholic dementia. In the past he has made threats to harm himself and/or sister. The patient has court appointed guardians which are his niece Debbi and his cousin Ben Hart. Ben is "like a son to him" and agreed to be his guardian since November 2022. The goal of this was to keep the patient from needing to go to a [facility]. Debbi is not as involved in his care. Currently he lives at home alone and has a Caregiver/Girlfriend, Em, that is with him approximately 40-50 hours per week. The medication he takes for his paranoia was very helpful and he was doing exceptionally well around 2022. His psychiatrist then decreased the dose due to concern for liver issues, patient has decompensated since. Agitation and delusions have increased." Past Psychiatric History Current Psychiatric Diagnosis: na History of Previous Suicide Attempt: No Allergies Allergy/AdvReac Type Severity Reaction Status Date / Time No Known Allergies Allergy Verified 08/28/22 10:08 Home Medications Medication Instructions Recorded Confirmed Type donepezil 5 mg tablet (Aricept) 10 mg (2 x 5 mg) PO HS #90 tabs 08/28/22 12/24/23 Rx amlodipine 10 mg tablet (Norvasc) 10 mg PO DAILY 12/24/23 12/24/23 History aspirin 81 mg capsule (Vazalore) 81 mg PO DAILY 12/24/23 12/24/23 History citalopram 20 mg tablet (Celexa) 20 mg PO DAILY 12/24/23 12/24/23 History lisinopril 10 mg tablet 10 mg PO DAILY 12/24/23 12/24/23 History memantine 5 mg tablet 5 mg PO BID 12/24/23 12/24/23 History risperidone 0.5 mg tablet 0.5 mg PO DAILY 12/24/23 12/24/23 History (Risperdal) thiamine HCl (vitamin B1) 100 mg 100 mg PO DAILY 12/24/23 12/24/23 History tablet (Vitamin B-1) Patient History Medical History Alcohol use Surgical History (Updated 08/28/22 @ 10:26 by Leigh Gomes LPN) History of surgery on lower extremity No pertinent past surgical history Family History (Updated 08/28/22 @ 10:25 by Leigh Gomes LPN) Sister Breast cancer Mother Lung cancer Denies family history of Ovarian cancer Prostate cancer Myocardial infarction Colorectal cancer Social History (Updated 08/28/22 @ 10:46 by Leigh Gomes LPN) Smoking Status: Unknown if ever smoked Tobacco Type: Cigarettes Age Started Using Tobacco: 13; Cigarettes Per Day: has cut way back to 2 cigarettes a day.; Second Hand Exposure: No; Do You Dip or Chew Tobacco: No; Hx Alcohol Use: Yes (unknown of last alcohol intake) Alcohol type: beer Hx Substance Use: No Preferred Language: Thai Communication Ability: Effective Communication Ability Comment: pt currently has flight of ideas Solar 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 Required: Voice Beliefs That Will Affect Care: None marital status: Single Current Living Situation: Alone current occupational status: retired How many Children do You have: 0 Feels Safe at Home: Hesitant to Answer Safety Concerns: Afraid for Self Childhood Exposure to Second-Hand Smoke: Yes Diet: regular caffeine: Yes Dental Care, Regularly: No Physical Activity Frequency: Daily Seatbelt Use: sometimes Sunscreen Use: Yes Gender Identity: Male Assistive Devices: Walker Physical Exam Vital Signs (Past 24 Hours): Last Vital Signs Temp 36.8 C 12/24/23 23:23 Pulse 77 12/25/23 14:00 Resp 16 12/25/23 14:00 BP 97/55 L 08/22/24 14:00 Pulse Ox 96 12/25/23 14:00 O2 Del Method Room Air 12/25/23 14:00 Results & Data (PSY) Medications Administered Amlodipine Besylate (Amlodipine Besylate 5 Mg Tab) 10 mg PO DAILY JOHN Stop: 01/24/24 08:59 Last Admin: 12/25/23 08:06 Dose: 10 mg Documented By: JIE Aspirin (Aspirin 81 Mg Ectab) 81 mg PO DAILY JOHN Stop: 01/24/24 08:59 Last Admin: 12/25/23 08:06 Dose: 81 mg Documented By: JIE Citalopram Hydrobromide (Citalopram 20 Mg Tab) 20 mg PO DAILY JOHN Stop: 01/24/24 08:59 Last Admin: 12/25/23 08:06 Dose: 20 mg Documented By: JIE Folic Acid (Folic Acid 1 Mg Tab) 1 mg PO QAM JOHN Stop: 01/24/24 08:59 Last Admin: 12/25/23 08:06 Dose: 1 mg Documented By: JIE Lisinopril (Lisinopril 10 Mg Tab) 10 mg PO DAILY JOHN Stop: 01/24/24 08:59 Last Admin: 12/25/23 08:06 Dose: 10 mg Documented By: JIE Memantine (Memantine Hcl 5 Mg Tab) 5 mg PO BID JOHN Stop: 01/24/24 08:59 Last Admin: 12/25/23 08:06 Dose: 5 mg Documented By: JIE Multivitamins (Multivitamin Tab) 1 tab PO QAM JOHN Stop: 01/24/24 08:59 Last Admin: 12/25/23 08:06 Dose: 1 tab Documented By: JIE Risperidone (Risperidone 0.5 Mg Tablet) 0.5 mg PO DAILY JOHN Stop: 01/24/24 08:59 Last Admin: 12/25/23 08:06 Dose: 0.5 mg Documented By: JIE Thiamine HCl (Thiamine Hcl 100 Mg Tab) 100 mg PO DAILY JOHN Stop: 01/24/24 08:59 Last Admin: 12/25/23 08:06 Dose: 100 mg Documented By: JIE [place] [address] IN/OBS CONSULT LVL 4,60M Patient Type New History Expanded Problem Focused Exam Expanded Problem Focused Medical Decision Making Moderate Complexity Diagnoses Acute paranoia F22 Unspecified psychosis not due to a substance or known physiological condition F29 Cognitive impairment R41.89 Tobacco abuse Z72.0
--- NOTE | 2023-12-25 15:24 | Discharge Summary ---
Discharge Summary Date of Service December 25, 2023 Principal Dx & Hospital Course #1 = Principal Diagnosis (1) Vascular dementia with delirium: (2) Cognitive impairment: (3) Cerebrovascular small vessel disease: (4) Depressed: (5) Alcohol use: Plan Patient presented to the emergency room after he himself called 911 because he felt fearful and scared. There is question whether he had been using alcohol. Patient has known history of vascular dementia. Patient was admitted to the hospital for further observation and psychiatric evaluation. Patient was observed in the hospital. His delirium cleared with some supportive care. He was evaluated by psychiatry. It was learned that he recently the patient's full-time caregiver had been away. Suspect this change in the patient's routine disrupted him with his dementia causing some delirium. Care management was involved in his care. They did determined and ensure that the patient's usual caregiver and support is in place. He did not meet criteria for inpatient [facility] admission. At the time of discharge patient is awake. Able to have a superficial conversation. Memory definitely was indicative of dementia. These ensure that his caregivers and family are in place. There are no other unstable medical issues that require ongoing hospital level care and interventions. He be discharged home to follow-up with his outpatient providers. Notes For Next Care Provider May need additional caregiver support May needed titration of dementia medications Medication Changes From Visit Lisinopril discontinued due to borderline low blood pressures Admission HPI Per Admitting Provider History obtained from patient, family, and records. Patient is a fair historian. Medical history significant for hypertension, dementia, anxiety/mood disorder, past history of seizures as per records, psoriatic arthritis, alcohol abuse, past tobacco abuse. Last confinement March 2022 for hyponatremia. Patient called 911 today because he was scared and he had the "blues". Denies suicidality. Denies headache, chest pain, SOB, abdominal pain. Patient niece who lives in [place] unaware of issues at home. Patient brought to ER for evaluation. 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 Lungs: Clear to auscultation, decreased, no wheezes rales or rhonchi CV: S1-S2, regular Abdomen: Soft, nontender, nondistended Extremities: No significant edema Neuro: No focal deficits Psych: Cooperative, intermittently confused, impaired short and long-term memory Updated Medication List Medication Instructions Recorded Confirmed Type donepezil 5 mg tablet (Aricept) 10 mg (2 x 5 mg) PO HS #90 tabs 08/28/22 12/24/23 Rx amlodipine 10 mg tablet (Norvasc) 10 mg PO DAILY 12/24/23 12/24/23 History aspirin 81 mg capsule (Vazalore) 81 mg PO DAILY 12/24/23 12/24/23 History citalopram 20 mg tablet (Celexa) 20 mg PO DAILY 12/24/23 12/24/23 History lisinopril 10 mg tablet 10 mg PO DAILY 12/24/23 12/24/23 History memantine 5 mg tablet 5 mg PO BID 12/24/23 12/24/23 History risperidone 0.5 mg tablet 0.5 mg PO DAILY 12/24/23 12/24/23 History (Risperdal) thiamine HCl (vitamin B1) 100 mg 100 mg PO DAILY 12/24/23 12/24/23 History tablet (Vitamin B-1) Hospital Stay Data Consultations 12/24/23 21:50 ED Decision to Admit Stat 12/24/23 23:16 Consult Psychiatry Routine Diagnostic Imagining Performed Reviewed imaging, laboratory and diagnostic studies. Pertinent findings as below. Base metabolic profile stable CBC stable Respiratory viral panel negative TSH 1.0 Urinalysis negative for signs of infection Urine drug screen negative Alcohol level less than [address] significant for chronic involutional and ischemic changes consistent with white matter disease 12/24/23 19:13 CT head/brain wo con Stat Pending Results Patient Have Any Pending Studies at Discharge: No Discharge Instructions Given to Patient (Per Discharging Provider) Strongly recommend you abstain from all alcohol Home Health Attestation I certify that this patient is under my care and that I, or a physicians gift shop assistant working with me, had a face to-face encounter that meets the home health [id number] encounter requirements with this patient. The encounter with the patient was in whole, or in part, for the following medical condition, which is the primary reason for home health care (list medical condition): I certify that, based on my findings, the following services are medically necessary home health services: My clinical findings support the need for the above services because: Further, I certify that my clinical findings support that this patient is homebound (i.e. absences from home require considerable and taxing effort and are for medical reasons or gnosticism services or infrequently or of short duration when for other reasons) because: Certification for Home Health Services: Based on the above findings, I certify that this patient is confined to the home and needs intermittent care home care, physical therapy and/or speech therapy or continues to need occupational therapy. The patient is under my care, and I have initiated the establishment of the plan of care. This patient will be followed by a physician who will periodically review the plan of care. Total Time Total Time Spent Total Time Spent (In Minutes): 38
[2023-12-25 15:48] VITALS: RESP 18; O2SAT 94
[2023-12-25 17:29] VITALS: BP 102/68; PULSE 62
[2023-12-25] MEDS ORDERED: DONEPEZIL HCL 10 MG TAB PO SCH (21:00)
== END 2023-12-25 17:30 | disposition home health service (06) ==
LOC: EDINP 17:08 → ED 17:08 → EDINP 23:16